=== PATIENT | male | born 1945 | race Caucasian/White ===

== ENCOUNTER 2018-10-12 10:24 | Inpatient (IN) ==
[2018-10-12] MEDS ORDERED: ASPIRIN 81 MG TAB.CHEW CHEWED ONE (10:38)
--- NOTE | 2018-10-12 10:45 | Emergency Department Note ---
SOB HPI - General Chief Complaint: Shortness of Breath/Dyspnea Stated Complaint: Shortness of breath Time Seen by Provider: 10/12/18 10:41 Source: patient Mode of arrival: ambulatory Limitations: no limitations - History of Present Illness 73-year-old male presents to the emergency department today via ambulance from [facility]. He reports that he has had difficulty breathing and shortness of breath for about 2 weeks. He denies fevers but reports occasionally feeling chilled. He does have a history of CHF, and states that his lower extremities have worsening edema. He states that normally his blood pressure is around 150-160 systolic and he is concerned that it is much lower than that and is running around 120 systolic. He doesn't require O2 at home, but he did arrive to the emergency department wearing 2 L O2. He denies any chest pains or cough. Denies any wheezing. - Related Data Home Medications Medication Instructions Recorded Confirmed Acetaminophen [Tylenol 8 Hour] 650 mg PO Q4HP PRN 10/12/18 10/12/18 Allopurinol [Zyloprim] 100 mg PO .COMPLEX 10/12/18 10/12/18 Bisacodyl [Dulcolax] 10 mg HI DAILYP PRN 10/12/18 10/12/18 Carvedilol [Coreg] 3.125 mg PO HS 10/12/18 10/12/18 Carvedilol [Coreg] 6.25 mg PO DAILY 10/12/18 10/12/18 Colchicine [Colcrys] 0.6 mg PO PRN PRN 10/12/18 10/12/18 Furosemide [Lasix] 80 mg PO DAILY 10/12/18 10/12/18 Magnesium Hydroxide [Milk of 400 mg PO PRN PRN 10/12/18 10/12/18 Magnesia] Metolazone [Zaroxolyn] 2.5 mg PO .COMPLEX 10/12/18 10/12/18 Multivitamin [One Daily Essential] 1 each PO DAILY 10/12/18 10/12/18 Na Phos,M-B/Na Phos,Di-Ba [Fleets 1 dose HI DAILYP PRN 10/12/18 10/12/18 Adult] Nystatin 15 gm TP BID 10/12/18 10/12/18 [place]-3 Fatty Acids [Super [place]-3] 1,000 mg PO Q48H 10/12/18 10/12/18 Rivaroxaban [Xarelto] 20 mg PO DAILY 10/12/18 10/12/18 traMADol [Ultram] 50 mg PO BID PRN 10/12/18 10/12/18 Allergies Allergy/AdvReac Type Severity Reaction Status Date / Time Penicillins AdvReac Mild Rash Verified 10/12/18 11:13 Review of Systems All systems ED: reviewed and negative except as stated. Past Medical History - Past Medical History Medical history: Reports: CHF, hypertension - Social History smoking status: Former smoker Physical Exam Limitations: no limitations General appearance: alert, in no apparent distress Head: atraumatic, normocephalic ENT: mucous membranes moist Neck: Present: trachea midline. Absent: lymphadenopathy, thyromegaly Chest: Present: normal inspection, symmetric chest wall rise. Absent: tenderness Respiratory: Present: other (Lung sounds clear to auscultate right upper lobe and left upper lobe diminished lung sounds right middle lobe and right lower lobe, and left lower lobe. No crackles.). Absent: accessory muscle use Cardiovascular: Present: regular rate, normal rhythm, +S1, +S2. Absent: systolic murmur, diastolic murmur Abdominal: Present: soft. Absent: distention, tenderness, guarding, rebound, rigidity, organomegaly, mass Extremities: Present: full ROM, normal capillary refill, pedal edema (4+ edema). Absent: calf tenderness Neurological: Present: alert, oriented X3 Skin: Present: warm, dry, normal color Course - Reevaluation(s) Time: 12:29 (Sp[address] Dr[address] Mar who will accept the patient for admission to [facility].) Vital Signs Temperature 99.5 F H 10/12/18 10:26 Pulse Rate 87 10/12/18 10:26 Respiratory Rate 18 10/12/18 10:26 Pulse Oximetry (%) 97 10/12/18 10:26 Temperature 99.5 F H 10/12/18 10:26 Pulse Rate 83 10/12/18 13:01 Respiratory Rate 32 H 10/12/18 13:01 Blood Pressure 108/89 10/12/18 13:01 Pulse Oximetry (%) 98 10/12/18 13:01 Shortness of Breath/Dyspnea - [facility] Narrative Medical decision making narrative: Labs today show proBNP at 6715, negative troponin, potassium of 3.2, and was given 20 mEq of oral potassium. He was given a total of 80 mg of IV Lasix today, and a Roque was placed. He will be admitted to [facility] for CHF exacerbation. He is requiring O2, and oxygen saturations did drop down to 85% on room air. No leukocytosis. - Lab Data Result diagrams: 10/12/18 10:47 10/12/18 10:47 Lab Results 10/12/18 10/12/18 10/12/18 Range/Units 10:47 10:47 10:47 WBC 5.7 (4.5-11.0) K/mcL RBC 4.54 (4.50-5.90) M/mcL Hgb 14.3 (13.5-16.5) g/dL Hct 44.2 (41.0-55.0) % MCV 97.3 (80.0-100.0) fL MCH 31.5 (26.0-34.0) pg MCHC 32.4 (31.0-36.0) g/dL RDW 14.8 H (11.5-14.5) % Plt Count 172 (140-440) K/mcL MPV 7.9 (7.4-10.4) fL Gran % 56.9 (38.0-78.0) % Lymph % (Auto) 18.5 (15.5-49.0) % [place] % (Auto) 15.6 H (1.0-12.0) % Eos % (Auto) 7.9 H (0.0-7.0) % Baso % (Auto) 1.1 (0.0-2.0) % Gran # 3.2 (1.8-8.0) K/mcL Lymph # (Auto) 1.0 L (1.5-4.8) K/mcL [place] # (Auto) 0.9 (0.1-0.9) K/mcL Eos # (Auto) 0.4 (0.0-0.7) K/mcL Baso # (Auto) 0.1 (0.0-0.3) K/mcL Sodium 135 (133-145) mmol/L Potassium 3.2 L (3.3-5.1) mmol/L Chloride 89 L (96-108) mmol/L Carbon Dioxide 35 H (22-30) mmol/L Anion Gap 11.0 (8-16) BUN 33 H (8-23) mg/dl Creatinine 1.2 (0.7-1.2) mg/dl GFR Calculation 59 Glucose 110 H (70-105) mg/dL Calcium 9.0 (8.6-10.4) mg/dl Total Bilirubin 1.7 H (0.0-1.0) mg/dL AST 29 (0-37) U/l ALT 19 (0-40) U/l Alkaline Phosphatase 262 H (39-117) U/L Total Creatine Kinase 51 (24-195) IU/L CK-MB (CK-2) 2.0 (0-4.9) ng/ml Myoglobin 79 H (28-72) ng/ml Troponin T < 0.01 (0-0.03) ng/ml NT-Pro-B Natriuret Pep 6715.0 H (0-450) pg/ml Total Protein 7.6 (5.9-8.4) gm/dL Albumin 3.4 (3.2-5.2) gm/dL Globulin 4.2 H (2.2-3.7) gm/dL Albumin/Globulin Ratio 0.8 L (1.0-2.3) Disposition Pt seen by [facility] only: Yes Clinical Impression: CHF exacerbation Disposition: Xfer As Inpt ([facility]) Condition: Fair Referrals: Jordan Martin MD [Primary Care Provider] -
[2018-10-12 11:30] LABS: Basophils # (Auto) 0.1 K/mcL (0.0-0.3); Basophils % (Auto) 1.1 % (0.0-2.0); Eosinophils # (Auto) 0.4 K/mcL (0.0-0.7); Eosinophils % (Auto) 7.9 % (0.0-7.0); Granulocytes % (Auto) 56.9 % (38.0-78.0); Lymphocytes % (Auto) 18.5 % (15.5-49.0); Mean Cell Volume 97.3 fL (80.0-100.0); Mean Corpuscular HGB Conc 32.4 g/dL (31.0-36.0); Monocytes # (Auto) 0.9 K/mcL (0.1-0.9); Monocytes % (Auto) 15.6 % (1.0-12.0); Platelet Count 172 K/mcL (140-440); RBC 4.54 M/mcL (4.50-5.90); Red Cell Distribution Width 14.8 % (11.5-14.5)
[2018-10-12] MEDS ORDERED: FUROSEMIDE 40 MG/4 ML VIAL IV ONE ×3 (11:41→12:20)
[2018-10-12 12:00] LABS: ALT/SGPT 19 U/l (0-40); Albumin 3.4 gm/dL (3.2-5.2); Albumin/Globulin Ratio 0.8 (1.0-2.3); Alkaline Phosphatase 262 U/L (39-117); Blood Urea Nitrogen 33 mg/dl (8-23); Creatine Kinase 51 IU/L (24-195); Myoglobin 79 ng/ml (28-72)
[2018-10-12] MEDS ORDERED: POTASSIUM CHLORIDE 20 MEQ TABLET PO ONE (12:22)
--- NOTE | 2018-10-12 12:36 | XRay Report ---
CLINICAL INFORMATION: Chest Pain COMPARISON: 01/21/2015 FINDINGS: The heart is moderately enlarged. Mediastinum is unremarkable. Pulmonary vessels are markedly congested with moderate peribronchovascular edema. Mild bibasilar atelectasis noted. Small right pleural effusion appreciated. IMPRESSION: Moderate/severe acute CHF Interpreted and Authenticated by: Bret Gamboa 10/12/18
--- NOTE | 2018-10-12 13:14 | Internal Med History&Physical ---
Medical - H&P: HPI Patient information: Note initiated : 10/12/18 at 1:12 pm Service Date, if different from initiated Date: [] Patient: Liz Bland a 73 y/o M admitted on for Shortness of breath. Chief Complaint: [] History of present illness: Mr. Bland is a 73 year old M with multiple medical issues, CHF, presents to the ER today for evaluation of shortness of breath. The patient is a resident of [facility], notes that he has been feeling short of breath for the last 2-3 weeks. He was discharged from [facility] 6 weeks ago when he was admitted with diagnosis of possible pneumonia and congestive heart failure. The patient notes for the last 3 weeks has been getting progressively short of breath, difficult to do minimal ambulation, and increased swelling in his lower extremity. He has been having cough which is dry. He denies any other complaints. He denies any palpitations denies any chest pain dizziness, denies any headache changes in vision has chronic loss of vision, denies any changing in hearing difficulty in swallowing, denies any nausea abdominal pain diarrhea c onstipation. Denies any new joint pains or skin rashes. Denies any psychiatric complaints. The patient on presentation to the ER had a low-grade temperature of 99.5, blood pressure 117/80, respirations 18 saturating 92% on 2-3 L of oxygen. EKG showed atrial fibrillation wide QRS complex left axis deviation. No old EKG to compare. Chest x-ray shows severe congestive heart failure Labs show WBC count of 5.7 hemoglobin 14 platelets 172, sodium 135 potassium 3.2 bicarbonate 35 creatinine 1.2 bilirubin 1.7, BNP elevated at 6715 troponin is negative Patient is being admitted to the hospital for further management All systems: reviewed and no additional remarkable complaints except as stated (As per HPI rest negative) Medical - H&P: PMH Medical history: Coronary artery disease Hypertension Atrial fibrillation Congestive heart failure Gout Polyneuropathy Pulmonary hypertension Morbid obesity Aortic valve replacement Surgical history: Aortic valve replacement Coronary artery bypass graft Family history: reviewed and not pertinent Social history: Presently living in a penitentiary, denies any smoking alcohol or recreational drug use Medical - H&P: Meds Home Medications Medication Instructions Recorded Confirmed Type Acetaminophen [Tylenol 8 Hour] 650 mg PO Q4HP PRN 10/12/18 10/12/18 History Allopurinol [Zyloprim] 100 mg PO .COMPLEX 10/12/18 10/12/18 History Bisacodyl [Dulcolax] 10 mg MD DAILYP PRN 10/12/18 10/12/18 History Carvedilol [Coreg] 3.125 mg PO HS 10/12/18 10/12/18 History Carvedilol [Coreg] 6.25 mg PO DAILY 10/12/18 10/12/18 History Colchicine [Colcrys] 0.6 mg PO PRN PRN 10/12/18 10/12/18 History Furosemide [Lasix] 80 mg PO DAILY 10/12/18 10/12/18 History Magnesium Hydroxide [Milk of 400 mg PO PRN PRN 10/12/18 10/12/18 History Magnesia] Metolazone [Zaroxolyn] 2.5 mg PO .COMPLEX 10/12/18 10/12/18 History Multivitamin [One Daily Essential] 1 each PO DAILY 10/12/18 10/12/18 History Na Phos,M-B/Na Phos,Di-Ba [Fleets 1 dose MD DAILYP PRN 10/12/18 10/12/18 History Adult] Nystatin 15 gm TP BID 10/12/18 10/12/18 History [place]-3 Fatty Acids [Super [place]-3] 1,000 mg PO Q48H 10/12/18 10/12/18 History Rivaroxaban [Xarelto] 20 mg PO DAILY 10/12/18 10/12/18 History traMADol [Ultram] 50 mg PO BID PRN 10/12/18 10/12/18 History Allergies Allergy/AdvReac Type Severity Reaction Status Date / Time Penicillins AdvReac Mild Rash Verified 10/12/18 11:13 Medical - H&P: Exam - Constitutional Vitals: Temp Pulse Resp BP Pulse Ox 99.5 F H 83 32 H 108/89 98 10/12/18 10:26 10/12/18 13:01 10/12/18 13:01 10/12/18 13:01 10/12/18 13:01 Exam: GENERAL: The patient is a well-developed, well-nourished in no apparent distress. Is alert and oriented x3. VITAL SIGNS: Reviewed and as noted elsewhere. HEENT: Head is normocephalic and atraumatic. Extraocular muscles are intact. Pupils are equal, round, and reactive to light. Nares appeared normal. Mouth appears any without lesions , poor dentition. Mucous membranes are moist. NECK: Normal to inspection, Supple, No lymphadenopathy or thyromegaly. LUNGS: Air entry equal on both sides, no wheezing, aid[place] basilar crackles, right > left. No accessory muscles of respiration HEART: Regular rate and rhythm normal, S1 and S2 heard, no Gallop, S3 or Rub Noted, No Gross murmur heard. ABDOMEN: Soft, nontender, and nondistended. Positive bowel sounds. No hepatosplenomegaly was noted. EXTREMITIES: No cyanosis, clubbing, rash, m, bilateral pedeal edema ++++ , aiden venous stasis. NEUROLOGIC: Cranial nerves II through XII are grossly intact. Motor and Sensory System Grossly Intact PSYCHIATRIC: Normal affect, Normal Mood. Appropriate Behavior. SKIN: No ulceration or wounds noted, No jaundice, No rash noted. Medical - H&P: Reslt - Labs CBC & Chem 7: 10/12/18 10:47 10/12/18 10:47 Labs: Short CBC 10/12/18 Range/Units 10:47 WBC 5.7 (4.5-11.0) K/mcL Hgb 14.3 (13.5-16.5) g/dL Hct 44.2 (41.0-55.0) % Plt Count 172 (140-440) K/mcL BMP 10/12/18 10:47 Sodium 135 Potassium 3.2 L Chloride 89 L Carbon Dioxide 35 H BUN 33 H Creatinine 1.2 Glucose 110 H Calcium 9.0 Cardiac Enzymes 10/12/18 10/12/18 Range/Units 10:47 10:47 Total Creatine Kinase 51 (24-195) IU/L CK-MB (CK-2) 2.0 (0-4.9) ng/ml Troponin T < 0.01 (0-0.03) ng/ml Liver Function 10/12/18 Range/Units 10:47 Total Bilirubin 1.7 H (0.0-1.0) mg/dL AST 29 (0-37) U/l ALT 19 (0-40) U/l Alkaline Phosphatase 262 H (39-117) U/L Albumin 3.4 (3.2-5.2) gm/dL Medical - H&P: A/P - Narrative A/P Narrative: A/P Acute congestive heart failuire, Systolic and Diastolic -Pt last echo done 07/27, at [facility] shows mildly dilated left ventricle, 30-35% ejection fraction, regional wall motion abnormalities, and grade 3 diastolic dysfunction -IV diuretics for now, add metolazone 2.5 mg twice daily before Lasix Pneumonia -Patient has a fever, although there is no white count he is a penit[facility]iary [facility], central calcitonin get blood cultures and start on broad-spectrum antibiotic coverage for now. Hypokalemia -Replace aggressively Atrial fibrillation -Rate reasonably controlled at this time, on anticoagulation with Xarelto, beta- blockers Coreg resumed Gout -Resume allopurinol Hypertension -Blood pressure stable continue home medications OT/PT/ST rehab DVT on xarelto Full code, no family, has friend mac, who lives with him, should he be on the machine for long peroid, then his friend to decide when to pull the plug.
[2018-10-12] MEDS ORDERED: VANCOMYCIN PER PHARMACY IV SCH (14:12)
[2018-10-12] MEDS ORDERED: ACETAMINOPHEN 325 MG TABLET PO PRN (14:12)
[2018-10-12] MEDS ORDERED: ONDANSETRON 4 MG/2 ML VIAL IV PRN (14:12)
[2018-10-12] MEDS ORDERED: NALOXONE HCL 0.4 MG/ML VIAL IV PRN (14:12)
[2018-10-12] MEDS ORDERED: POTASSIUM CHLORIDE 20 MEQ PACKET PO ONE (14:12)
[2018-10-12] MEDS ORDERED: traMADol 50 MG TABLET PO PRN (14:12)
[2018-10-12] MEDS ORDERED: IPRATROPIUM/ALBUTEROL 3 ML AMPUL.NEB NEB PRN (14:12)
[2018-10-12] MEDS: LEVOFLOXACIN 750 MG/150 ML BAG IV SCH (14:51)
[2018-10-12] MEDS: 0.9 % SODIUM CHLORIDE 10 ML SYRINGE IV SCH ×2 (14:53→21:44)
[2018-10-12] MEDS: METOLAZONE 2.5 MG TABLET PO SCH (16:10)
[2018-10-12] MEDS: CEFEPIME 1 GM VIAL IV SCH (16:46)
[2018-10-12] MEDS: FUROSEMIDE 100 MG/10 ML VIAL IV SCH (16:46)
[2018-10-12] MEDS: VANCOMYCIN 1,500 MG in 0.9 % SODIUM CHLORIDE 500 ML IV SCH (16:46)
[2018-10-12] MEDS: CARVEDILOL 3.125 MG TABLET PO SCH (20:47)
[2018-10-12] MEDS ORDERED: NYSTATIN CRM 1 DOSE TUBE TOPICAL PRN (21:00)
[2018-10-12] MEDS: oxyCODONE/APAP 5/325MG TABLET PO PRN (23:12)
[2018-10-13] MEDS: CEFEPIME 1 GM VIAL IV SCH ×3 (00:46→21:24)
[2018-10-13] MEDS: oxyCODONE/APAP 5/325MG TABLET PO PRN ×2 (03:33→13:25)
[2018-10-13] MEDS: 0.9 % SODIUM CHLORIDE 10 ML SYRINGE IV SCH ×3 (05:26→21:25)
[2018-10-13] MEDS: METOLAZONE 2.5 MG TABLET PO SCH ×2 (07:35→16:19)
--- NOTE | 2018-10-13 07:59 | Emergency Department Note ---
ED Note Addendum Note Addendum: I discussed this patient with the mid-level provider and agree with the assessment and plan.
[2018-10-13] MEDS ORDERED: POLYETHYLENE GLYCOL 3350 17 GM PACKET PO ONE (08:22)
[2018-10-13] MEDS: FUROSEMIDE 100 MG/10 ML VIAL IV SCH ×2 (08:58→16:59)
[2018-10-13] MEDS: RIVAROXABAN 20 MG TABLET PO SCH (08:59)
[2018-10-13] MEDS: ALLOPURINOL 100 MG TABLET PO SCH (08:59)
[2018-10-13] MEDS: CARVEDILOL 6.25 MG TABLET PO SCH (08:59)
[2018-10-13] MEDS: MULTIVIT,THER IRON,CA,FA & MIN 1 TABLET PO SCH (08:59)
[2018-10-13 09:21] LABS: Basophils # (Auto) 0 K/mcL (0.0-0.3); Basophils % (Auto) 0.6 % (0.0-2.0); Eosinophils # (Auto) 0.6 K/mcL (0.0-0.7); Eosinophils % (Auto) 9.3 % (0.0-7.0); Granulocytes % (Auto) 61.8 % (38.0-78.0); Lymphocytes # (Auto) 0.9 K/mcL (1.5-4.8); Lymphocytes % (Auto) 15.5 % (15.5-49.0); Mean Cell Volume 98.8 fL (80.0-100.0); Mean Corpuscular HGB Conc 31.9 g/dL (31.0-36.0); Monocytes # (Auto) 0.8 K/mcL (0.1-0.9); Monocytes % (Auto) 12.8 % (1.0-12.0); Platelet Count 163 K/mcL (140-440); RBC 4.25 M/mcL (4.50-5.90)
[2018-10-13 09:34] LABS: ALT/SGPT 17 U/l (0-40); Albumin 3.1 gm/dL (3.2-5.2); Albumin/Globulin Ratio 0.7 (1.0-2.3); Alkaline Phosphatase 245 U/L (39-117); Bilirubin,Direct 0.6 mg/dL (0.0-0.3); Blood Urea Nitrogen 34 mg/dl (8-23); Gamma Glutamyl Transpeptidase 114 U/L (8-61); Uric Acid 10.6 mg/dL (2.5-8.0)
[2018-10-13] MEDS: VANCOMYCIN 1,500 MG in 0.9 % SODIUM CHLORIDE 500 ML IV SCH (10:03)
[2018-10-13] MEDS: LEVOFLOXACIN 750 MG/150 ML BAG IV SCH (10:03)
[2018-10-13] MEDS ORDERED: POTASSIUM CHLORIDE 20 MEQ PACKET PO ONE (10:08)
--- NOTE | 2018-10-13 13:39 | Internal Med Progress Note ---
Medical - PN: Subj Patient information: Note initiated : 10/13/18 at 1:37 pm Service Date, if different from initiated Date: [] Patient: Liz Bland a 73 y/o M admitted on 10/12/18 for Shortness of breath. Chief Complaint: [] Interval history: Mr. Bland is a 73 year old M with multiple medical issues, CHF, presents to the ER today for evaluation of shortness of breath. The patient is a resident of [facility], notes that he has been feeling short of breath for the last 2-3 weeks. He was discharged from [facility] 6 weeks ago when he was admitted with diagnosis of possible pneumonia and congestive heart failure. The patient notes for the last 3 weeks has been getting progressively short of breath, difficult to do minimal ambulation, and increased swelling in his lower extremity. He has been having cough which is dry. He denies any other complaints. He denies any palpitations denies any chest pain dizziness, denies any headache changes in vision has chronic loss of vision, denies any changing in hearing difficulty in swallowing, denies any nausea abdominal pain diarrhea constipation. Denies any new joint pains or skin rashes. Denies any psychiatric complaints. The patient on presentation to the ER had a low-grade temperature of 99.5, blood pressure 117/80, respirations 18 saturating 92% on 2-3 L of oxygen. EKG showed atrial fibrillation wide QRS complex left axis deviation. No old EKG to compare. Chest x-ray shows severe congestive heart failure Labs show WBC count of 5.7 hemoglobin 14 platelets 172, sodium 135 potassium 3.2 bicarbonate 35 creatinine 1.2 bilirubin 1.7, BNP elevated at 6715 troponin is negative Patient is being admitted to the hospital for further management 10/13 Pt seen examined, no acute overnight issues, tolerating po diet well, sitting in chair, reports breathing better, but not back to baseline, still weak and tired. Pertinent ROS: Denies headache, dizziness Denies chest pain, palpitations shortness of breath improving Denies abdominal pain, nausea or vomiting. - Constitutional Vitals: Vital Signs Temp Pulse Resp BP Pulse Ox 99.3 F H 80 18 113/64 96 10/13/18 11:48 10/13/18 11:48 10/13/18 11:48 10/13/18 11:48 10/13/18 11:48 Period Temp Pulse Resp BP Sys/Levin Pulse Ox Last 24 Hr 98.2 F-99.5 F 72-85 16-32 92-113/57-89 93-97 Intake and Output 10/12/18 10/13/18 10/13/18 21:59 05:59 13:59 Intake Total 1150 Output Total 1350 2200 650 Balance -1350 -2200 500 Weight 246 lb 246 lb Patient Weight 10/14/18 05:59 Weight 246 lb Intake & Output: Intake & Output 10/12/18 10/13/18 10/13/18 21:59 05:59 13:59 Intake Total 1150 Output Total 1350 2200 650 Balance -1350 -2200 500 Weight 246 lb 246 lb Intake: IV 650 Vancomycin 1,500 mg In Sodium 500 Chloride 0.9% 500 ml @ 333.3 mls/hr IV Q24H [facility] Rx#: [id number] Oral 500 Output: Urine Catheter Amount 1350 2200 650 Other: Meal Lunch Percent of Meal Consumed 90 Urine Appearance Clear Clear Uretheral (Roque) Clear Clear Urine Color Bright Yellow Dark Yara Uretheral (Roque) Straw Dark Yellow Straw Urine Odor Strong Exam: Constitutional; Afebrile, cooperative, alert, not in distress. Respiratory system: Air Entry equal on both sides, No crackles or wheezing, no rhonchi. CVS- Rate rhythm regular, S1,S2 heard, no gallop, no rub. Abdomen- Soft nontender abdomen, no organomegaly, no tenderness, no guarding or rigidity, MANAGER ORDER- AOOx3, moving all extremities, no gross focal deficit noted. Medical - PN: Obj Da - Labs CBC & Chem 7: 10/13/18 08:27 10/13/18 08:27 Labs: Abnormal Lab Results 10/13/18 10/13/18 10/12/18 08:27 08:27 10:47 RBC 4.25 L Hgb 13.4 L RDW 15.0 H [place] % (Auto) 12.8 H Eos % (Auto) 9.3 H Lymph # (Auto) 0.9 L Potassium 3.2 L Chloride 89 L 89 L Carbon Dioxide 40 H 35 H Anion Gap 6.0 L BUN 34 H 33 H Creatinine 1.5 H Glucose 113 H 110 H Uric Acid 10.6 H Total Bilirubin 1.4 H 1.7 H Direct Bilirubin 0.6 H GGT 114 H Alkaline Phosphatase 245 H 262 H Lactate Dehydrogenase 277 H Myoglobin 79 H NT-Pro-B Natriuret Pep 6715.0 H Albumin 3.1 L Globulin 4.3 H 4.2 H Albumin/Globulin Ratio 0.7 L 0.8 L 10/12/18 10:47 RBC Hgb RDW 14.8 H [place] % (Auto) 15.6 H Eos % (Auto) 7.9 H Lymph # (Auto) 1.0 L Potassium Chloride Carbon Dioxide Anion Gap BUN Creatinine Glucose Uric Acid Total Bilirubin Direct Bilirubin GGT Alkaline Phosphatase Lactate Dehydrogenase Myoglobin NT-Pro-B Natriuret Pep Albumin Globulin Albumin/Globulin Ratio Meds: Medications Acetaminophen (Tylenol) 650 mg PO Q6HP PRN PRN Reason: PAIN/FEVER > 101 Albuterol/Ipratropium (Duoneb) 3 ml NEB Q4HRT PRN PRN Reason: Shortness Of Breath Or Wheezing Allopurinol (Zyloprim) 100 mg PO MoWeFr@0900 [facility] Last Admin: 10/13/18 08:59 Dose: 100 mg Documented by: Carvedilol (Coreg) 3.125 mg PO HS [facility] Last Admin: 10/12/18 20:47 Dose: 3.125 mg Documented by: Carvedilol (Coreg) 6.25 mg PO DAILY [facility] Last Admin: 10/13/18 08:59 Dose: 6.25 mg Documented by: Cefepime HCl (Maxipime) 1 gm IV Q12H [facility] Last Admin: 10/13/18 08:59 Dose: 1 gm Documented by: Furosemide (Lasix) 80 mg IV BIDD [facility] Last Admin: 10/13/18 08:58 Dose: 80 mg Documented by: Levofloxacin (Levaquin) 750 mg in 150 mls @ 100 mls/hr IV Q24H [facility] Last Admin: 10/13/18 10:03 Dose: 100 mls/hr Documented by: Vancomycin HCl 1,500 mg/ (Sodium Chloride) 500 mls @ 333.3 mls/hr IV Q24H [facility] Last Admin: 10/13/18 10:03 Dose: 333 mls/hr Documented by: Iron Carb/Multivit/[place]/Folic Acid (Multivitamin W/Minerals) 1 tab PO DAILY [facility] Last Admin: 10/13/18 08:59 Dose: 1 tab Documented by: Metolazone (Zaroxolyn) 2.5 mg PO BID@0730,1530 [facility] Last Admin: 10/13/18 07:35 Dose: 2.5 mg Documented by: Naloxone HCl (Narcan) 0.1 mg IV Q2MIN PRN PRN Reason: Opiate Reversal Nystatin (Nystatin Crm) 0 dose TOPICAL BIDP PRN PRN Reason: Rash Ondansetron HCl (Zofran) 4 mg IV Q4HP PRN PRN Reason: Nausea And Vomiting Oxycodone/Acetaminophen (Percocet 5-325 Mg) 1 tab PO Q4HP PRN PRN Reason: Pain Level >5 Last Admin: 10/13/18 13:25 Dose: 1 tab Documented by: Rivaroxaban (Xarelto) 20 mg PO DAILY [facility] Last Admin: 10/13/18 08:59 Dose: 20 mg Documented by: Sodium Chloride (Saline Flush) 10 ml IV Q8 [facility] Last Admin: 10/13/18 13:26 Dose: 10 ml Documented by: Tramadol HCl (Ultram) 50 mg PO BIDP PRN PRN Reason: Pain Vancomycin HCl (Vancomycin Per Pharmacy) 1 order IV UD [facility] Medical - PN: A/P - Time Spent With Patient Total time spent is greater than 50% in coordination of care (as documented) at patient's floor/unit and/or counseling patient: - Narrative A/P Narrative: A/P Acute congestive heart failuire, Systolic and Diastolic -Pt last echo done 07/27, at [facility] shows mildly dilated left ventricle, 30-35% ejection fraction, regional wall motion abnormalities, and grade 3 diastolic dysfunction -IV diuretics for now, add metolazone 2.5 mg twice daily before Lasix -pt is negative 3550 ml since yesterday, continue same Acute kidney injury from diuretic use monitor renal fucntion creat is 1.5 today, up from 1.2 Pneumonia -Patient has a fever, although there is no white count he is a half-way resident, central calcitonin get blood cultures and start on broad-spectrum antibiotic coverage for now. low grade fever presistent, neg cultures so far. Hypokalemia -Replace aggressively Atrial fibrillation -Rate reasonably controlled at this time, on anticoagulation with Xarelto, beta- blockers Coreg resumed Gout -Resume allopurinol Hypertension -Blood pressure stable continue home medications OT/PT/ST rehab DVT on xarelto Full code, no family, has friend mac, who lives with him, should he be on the machine for long peroid, then his friend to decide when to pull the plug. Medical - PN: Qual - Stroke Symptom Onset Unknown: No - VTE Deep Vein Thrombosis/Pulmonary Embolism Present on Admission: No
[2018-10-13] MEDS: CARVEDILOL 3.125 MG TABLET PO SCH (21:24)
[2018-10-14] MEDS: oxyCODONE/APAP 5/325MG TABLET PO PRN ×3 (02:20→20:17)
[2018-10-14] MEDS: 0.9 % SODIUM CHLORIDE 10 ML SYRINGE IV SCH ×3 (05:42→21:09)
[2018-10-14 06:33] LABS: Basophils # (Auto) 0 K/mcL (0.0-0.3); Basophils % (Auto) 0.6 % (0.0-2.0); Eosinophils # (Auto) 0.5 K/mcL (0.0-0.7); Eosinophils % (Auto) 8.3 % (0.0-7.0); Granulocytes % (Auto) 64.1 % (38.0-78.0); Lymphocytes # (Auto) 0.8 K/mcL (1.5-4.8); Lymphocytes % (Auto) 14.1 % (15.5-49.0); Mean Cell Volume 98.3 fL (80.0-100.0); Mean Corpuscular HGB Conc 32.6 g/dL (31.0-36.0); Monocytes # (Auto) 0.8 K/mcL (0.1-0.9); Monocytes % (Auto) 12.9 % (1.0-12.0); Platelet Count 162 K/mcL (140-440); RBC 3.84 M/mcL (4.50-5.90); Red Cell Distribution Width 15.1 % (11.5-14.5)
[2018-10-14] MEDS: METOLAZONE 2.5 MG TABLET PO SCH ×2 (07:11→16:14)
[2018-10-14 07:13] LABS: ALT/SGPT 16 U/l (0-40); Albumin/Globulin Ratio 0.8 (1.0-2.3); Alkaline Phosphatase 222 U/L (39-117); Bilirubin,Direct 0.7 mg/dL (0.0-0.3); Blood Urea Nitrogen 37 mg/dl (8-23); Gamma Glutamyl Transpeptidase 110 U/L (8-61); Uric Acid 10.6 mg/dL (2.5-8.0)
[2018-10-14] MEDS ORDERED: POTASSIUM CHLORIDE 40 MEQ in DEXTROSE 5% IN WATER 500 ML IV ONE (07:59)
--- NOTE | 2018-10-14 08:29 | XRay Report ---
HISTORY: Follow-up congestive heart failure FINDINGS: The heart is moderately enlarged. There is congestive heart failure with pulmonary edema. No pleural effusion is seen. There are sternal wires present. The congestive heart failure has mildly improved on the right side but there is been relatively little change in the left side. IMPRESSION: Cardiomegaly with congestive heart failure which is beginning to improve Interpreted and Authenticated by: Geovanni Goldberg 10/14/18
[2018-10-14] MEDS ORDERED: MAGNESIUM CITRATE 300 ML ORAL.SOL PO ONE (09:18)
[2018-10-14] MEDS: FUROSEMIDE 100 MG/10 ML VIAL IV SCH ×2 (09:19→17:06)
[2018-10-14] MEDS: CARVEDILOL 6.25 MG TABLET PO SCH (09:20)
[2018-10-14] MEDS: MULTIVIT,THER IRON,CA,FA & MIN 1 TABLET PO SCH (09:20)
[2018-10-14] MEDS: CEFEPIME 1 GM VIAL IV SCH ×2 (09:20→21:08)
[2018-10-14] MEDS: RIVAROXABAN 20 MG TABLET PO SCH (09:20)
[2018-10-14] MEDS: LEVOFLOXACIN 750 MG/150 ML BAG IV SCH (09:21)
[2018-10-14] MEDS: VANCOMYCIN 1,500 MG in 0.9 % SODIUM CHLORIDE 500 ML IV SCH (10:59)
[2018-10-14] MEDS ORDERED: POTASSIUM CHLORIDE 20 MEQ PACKET PO ONE (15:10)
--- NOTE | 2018-10-14 15:13 | Internal Med Progress Note ---
Medical - PN: Subj Patient information: Note initiated : 10/14/18 at 3:10 pm Service Date, if different from initiated Date: [] Patient: Liz Bland a 73 y/o M admitted on 10/12/18 for Shortness of breath. Chief Complaint: [] Interval history: Mr. Bland is a 73 year old M with multiple medical issues, CHF, presents to the ER today for evaluation of shortness of breath. The patient is a resident of [facility], notes that he has been feeling short of breath for the last 2-3 weeks. He was discharged from [facility] 6 weeks ago when he was admitted with diagnosis of possible pneumonia and congestive heart failure. The patient notes for the last 3 weeks has been getting progressively short of breath, difficult to do minimal ambulation, and increased swelling in his lower extremity. He has been having cough which is dry. He denies any other complaints. He denies any palpitations denies any chest pain dizziness, denies any headache changes in vision has chronic loss of vision, denies any changing in hearing difficulty in swallowing, denies any nausea abdominal pain diarrhea constipation. Denies any new joint pains or skin rashes. Denies any psychiatric complaints. The patient on presentation to the ER had a low-grade temperature of 99.5, blood pressure 117/80, respirations 18 saturating 92% on 2-3 L of oxygen. EKG showed atrial fibrillation wide QRS complex left axis deviation. No old EKG to compare. Chest x-ray shows severe congestive heart failure Labs show WBC count of 5.7 hemoglobin 14 platelets 172, sodium 135 potassium 3.2 bicarbonate 35 creatinine 1.2 bilirubin 1.7, BNP elevated at 6715 troponin is negative Patient is being admitted to the hospital for further management 10/13 Pt seen examined, no acute overnight issues, tolerating po diet well, sitting in chair, reports breathing better, but not back to baseline, still weak and tired. / Pt seen examined, feels fatigued, but no other complaints or concerns still has low grade temp otherwise no issues neg 7340 since admissin, still has significant lower extremity edema K low, replace Pertinent ROS: Denies headache, dizziness Denies chest pain, palpitations present shortness of breath and fatigue Denies abdominal pain, nausea or vomiting. - Constitutional Vitals: Vital Signs Temp Pulse Resp BP Pulse Ox 99.2 F H 72 18 95/56 92 10/14/18 12:00 10/14/18 12:00 10/14/18 12:00 10/14/18 12:00 10/14/18 12:00 Period Temp Pulse Resp BP Sys/Levin Pulse Ox Last 24 Hr 98.9 F-99.7 F 72-80 18-20 91-120/56-78 92-96 Intake and Output 10/14/18 10/14/18 10/14/18 05:59 13:59 21:59 Intake Total 570 Output Total 2300 1400 Balance -2300 -830 Intake & Output: Intake & Output 10/14/18 10/14/18 10/14/18 05:59 13:59 21:59 Intake Total 570 Output Total 2300 1400 Balance -2300 -830 Intake: IV 150 Oral 420 Output: Urine Catheter Amount 2300 1400 Other: Meal Lunch Percent of Meal Consumed 100% Feeding Ability Assist with Tray Set Up Urine Appearance Hematuria Urine Color Blood Tinged Uretheral (Roque) Dark Yellow Straw Urine Odor Strong Exam: Constitutional; Afebrile, cooperative, alert, not in distress. Respiratory system: Air Entry equal on both sides, No crackles or wheezing, no rhonchi. CVS- Rate rhythm regular, S1,S2 heard, no gallop, no rub. 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 Medical - PN: Obj Da - Labs CBC & Chem 7: 10/14/18 04:15 10/14/18 04:15 Labs: Abnormal Lab Results 10/14/18 10/14/18 10/13/18 04:15 04:15 08:27 RBC 3.84 L Hgb 12.3 L Hct 37.7 L RDW 15.1 H Lymph % (Auto) 14.1 L Marion % (Auto) 12.9 H Eos % (Auto) 8.3 H Lymph # (Auto) 0.8 L Potassium 2.9 L* Chloride 88 L 89 L Carbon Dioxide 36 H 40 H Anion Gap 6.0 L BUN 37 H 34 H Creatinine 1.4 H 1.5 H Glucose 112 H 113 H Uric Acid 10.6 H 10.6 H Total Bilirubin 1.4 H 1.4 H Direct Bilirubin 0.7 H 0.6 H GGT 110 H 114 H Alkaline Phosphatase 222 H 245 H Lactate Dehydrogenase 265 H 277 H Myoglobin NT-Pro-B Natriuret Pep Albumin 3.0 L 3.1 L Globulin 3.9 H 4.3 H Albumin/Globulin Ratio 0.8 L 0.7 L 10/13/18 10/12/18 10/12/18 08:27 10:47 10:47 RBC 4.25 L Hgb 13.4 L Hct RDW 15.0 H 14.8 H Lymph % (Auto) Marion % (Auto) 12.8 H 15.6 H Eos % (Auto) 9.3 H 7.9 H Lymph # (Auto) 0.9 L 1.0 L Potassium 3.2 L Chloride 89 L Carbon Dioxide 35 H Anion Gap BUN 33 H Creatinine Glucose 110 H Uric Acid Total Bilirubin 1.7 H Direct Bilirubin GGT Alkaline Phosphatase 262 H Lactate Dehydrogenase Myoglobin 79 H NT-Pro-B Natriuret Pep 6715.0 H Albumin Globulin 4.2 H Albumin/Globulin Ratio 0.8 L Meds: Medications Acetaminophen (Tylenol) 650 mg PO Q6HP PRN PRN Reason: PAIN/FEVER > 101 Albuterol/Ipratropium (Duoneb) 3 ml NEB Q4HRT PRN PRN Reason: Shortness Of Breath Or Wheezing Allopurinol (Zyloprim) 100 mg PO MoWeFr@0900 [facility] Last Admin: 10/13/18 08:59 Dose: 100 mg Documented by: Carvedilol (Coreg) 3.125 mg PO HS [facility] Last Admin: 10/13/18 21:24 Dose: 3.125 mg Documented by: Carvedilol (Coreg) 6.25 mg PO DAILY [facility] Last Admin: 10/14/18 09:20 Dose: 6.25 mg Documented by: Cefepime HCl (Maxipime) 1 gm IV Q12H [facility] Last Admin: 10/14/18 09:20 Dose: 1 gm Documented by: Furosemide (Lasix) 80 mg IV BIDD [facility] Last Admin: 10/14/18 09:19 Dose: 80 mg Documented by: Levofloxacin (Levaquin) 750 mg in 150 mls @ 100 mls/hr IV Q24H [facility] Last Infusion: 10/14/18 11:04 Dose: Infused Documented by: Vancomycin HCl 1,500 mg/ (Sodium Chloride) 500 mls @ 333.3 mls/hr IV Q24H [facility] Last Admin: 10/14/18 10:59 Dose: 333 mls/hr Documented by: Iron Carb/Multivit/Arcade Technician/Folic Acid (Multivitamin W/Minerals) 1 tab PO DAILY [facility] Last Admin: 10/14/18 09:20 Dose: 1 tab Documented by: Metolazone (Zaroxolyn) 2.5 mg PO BID@0730,1530 [facility] Last Admin: 10/14/18 07:11 Dose: 2.5 mg Documented by: Naloxone HCl (Narcan) 0.1 mg IV Q2MIN PRN PRN Reason: Opiate Reversal Nystatin (Nystatin Crm) 0 dose TOPICAL BIDP PRN PRN Reason: Rash Ondansetron HCl (Zofran) 4 mg IV Q4HP PRN PRN Reason: Nausea And Vomiting Oxycodone/Acetaminophen (Percocet 5-325 Mg) 1 tab PO Q4HP PRN PRN Reason: Pain Level >5 Last Admin: 10/14/18 09:20 Dose: 1 tab Documented by: Potassium Chloride (Klor-Con) 40 meq PO ONCE ONE Stop: 10/14/18 15:11 Rivaroxaban (Xarelto) 20 mg PO DAILY [facility] Last Admin: 10/14/18 09:20 Dose: 20 mg Documented by: Sodium Chloride (Saline Flush) 10 ml IV Q8 [facility] Last Admin: 10/14/18 15:02 Dose: 10 ml Documented by: Tramadol HCl (Ultram) 50 mg PO BIDP PRN PRN Reason: Pain Vancomycin HCl (Vancomycin Per Pharmacy) 1 order IV [facility] Medical - PN: A/P - Time Spent With Patient Total time spent is greater than 50% in coordination of care (as documented) at patient's floor/unit and/or counseling patient: - Narrative A/P Narrative: A/P Acute congestive heart failuire, Systolic and Diastolic -Pt last echo done 07/27, at [facility] shows mildly dilated left ventricle, 30-35% ejection fraction, regional wall motion abnormalities, and grade 3 diastolic dysfunction -IV diuretics for now, add metolazone 2.5 mg twice daily before Lasix -pt is responding well to diuresis Acute kidney injury from diuretic use monitor renal fucntion creat is 1.4 today, stable Pneumonia -Patient has a fever, although there is no white count he is a senior care resident, central calcitonin get blood cultures and start on broad-spectrum antibiotic coverage for now. low grade fever persistent, neg cultures so far. Hypokalemia -Replace aggressively Atrial fibrillation -Rate reasonably controlled at this time, on anticoagulation with Xarelto, beta- blockers Coreg resumed Gout -Resume allopurinol Hypertension -Blood pressure stable continue home medications, bp low today, will hold bp meds (coreg) to allow diuresis OT/PT/ST rehab DVT on xarelto Full code, no family, has friend mac, who lives with him, should he be on the machine for long peroid, then his friend to decide when to pull the plug. Medical - PN: Qual - Stroke Symptom Onset Unknown: No - VTE Deep Vein Thrombosis/Pulmonary Embolism Present on Admission: No
[2018-10-15] MEDS: 0.9 % SODIUM CHLORIDE 10 ML SYRINGE IV SCH ×3 (05:25→21:10)
[2018-10-15 06:21] LABS: Basophils # (Auto) 0 K/mcL (0.0-0.3); Basophils % (Auto) 0.6 % (0.0-2.0); Eosinophils # (Auto) 0.6 K/mcL (0.0-0.7); Eosinophils % (Auto) 9.3 % (0.0-7.0); Granulocytes % (Auto) 61.1 % (38.0-78.0); Lymphocytes % (Auto) 16.1 % (15.5-49.0); Mean Cell Volume 98.2 fL (80.0-100.0); Mean Corpuscular HGB Conc 32.9 g/dL (31.0-36.0); Monocytes # (Auto) 0.8 K/mcL (0.1-0.9); Monocytes % (Auto) 12.9 % (1.0-12.0); Platelet Count 157 K/mcL (140-440); RBC 3.84 M/mcL (4.50-5.90); Red Cell Distribution Width 15.1 % (11.5-14.5)
[2018-10-15 06:49] LABS: ALT/SGPT 17 U/l (0-40); Albumin/Globulin Ratio 0.8 (1.0-2.3); Alkaline Phosphatase 227 U/L (39-117); Bilirubin,Direct 0.7 mg/dL (0.0-0.3); Blood Urea Nitrogen 38 mg/dl (8-23); Gamma Glutamyl Transpeptidase 110 U/L (8-61); Uric Acid 10.7 mg/dL (2.5-8.0)
[2018-10-15] MEDS: METOLAZONE 2.5 MG TABLET PO SCH ×2 (07:29→15:17)
[2018-10-15] MEDS: FUROSEMIDE 100 MG/10 ML VIAL IV SCH (08:04)
[2018-10-15] MEDS: POTASSIUM CHLORIDE 20 MEQ PACKET PO SCH ×2 (09:16→12:52)
[2018-10-15] MEDS: ALLOPURINOL 100 MG TABLET PO SCH (09:16)
[2018-10-15] MEDS: MULTIVIT,THER IRON,CA,FA & MIN 1 TABLET PO SCH (09:16)
[2018-10-15] MEDS: RIVAROXABAN 20 MG TABLET PO SCH (09:22)
[2018-10-15] MEDS: CEFEPIME 1 GM VIAL IV SCH (10:24)
[2018-10-15] MEDS ORDERED: acetaZOLAMIDE SOD 500 MG VIAL IV ONE (15:06)
--- NOTE | 2018-10-15 17:39 | Internal Med Progress Note ---
Medical - PN: Subj Patient information: Note initiated : 10/15/18 at 5:20 pm Service Date, if different from initiated Date: [] Patient: Liz Bland a 73 y/o M admitted on 10/12/18 for Shortness of breath. Chief Complaint: Follow-up CHF Interval history: Mr. Bland is a 73 year old M with multiple medical issues, CHF, presents to the ER today for evaluation of shortness of breath. The patient is a resident of [facility], notes that he has been feeling short of breath for the last 2-3 weeks. He was discharged from [facility] 6 weeks ago when he was admitted with diagnosis of possible p neumonia and congestive heart failure. The patient notes for the last 3 weeks has been getting progressively short of breath, difficult to do minimal ambulation, and increased swelling in his lower extremity. He has been having cough which is dry. He denies any other complaints. He denies any palpitations denies any chest pain dizziness, denies any headache changes in vision has chronic loss of vision, denies any changing in hearing difficulty in swallowing, denies any nausea abdominal pain diarrhea constipation. Denies any new joint pains or skin rashes. Denies any psychiatric complaints. The patient on presentation to the ER had a low-grade temperature of 99.5, blood pressure 117/80, respirations 18 saturating 92% on 2-3 L of oxygen. EKG showed atrial fibrillation wide QRS complex left axis deviation. No old EKG to compare. Chest x-ray shows severe congestive heart failure Labs show WBC count of 5.7 hemoglobin 14 platelets 172, sodium 135 potassium 3.2 bicarbonate 35 creatinine 1.2 bilirubin 1.7, BNP elevated at 6715 troponin is negative Patient is being admitted to the hospital for further management 10/13 Pt seen examined, no acute overnight issues, tolerating po diet well, sitting in chair, reports breathing better, but not back to baseline, still weak and tired. / Pt seen examined, feels fatigued, but no other complaints or concerns still has low grade temp otherwise no issues neg 7340 since admission, still has significant lower extremity edema K low, replace 2/6 Seem to be more short of breath this morning. Continues to diuresis. ABG shows metabolic alkalosis, partially compensated. Serum bicarbonate up to 40. Still very weak, still with lower extremity edema. MAXIMUM TEMPERATURE 99.6, but no other symptoms of infection. Some blood noted with bowel movement today, has some raw perirectal areas - Constitutional Vitals: Vital Signs Temp Pulse Resp BP Pulse Ox 98.3 F 84 18 97/67 93 10/15/18 16:00 10/15/18 16:00 10/15/18 16:00 10/15/18 16:00 10/15/18 16:00 Period Temp Pulse Resp BP Sys/Levin Pulse Ox Last 24 Hr 98.3 F-99.6 F 68-84 16-20 96-110/64-67 93-99 Intake and Output 10/15/18 10/15/18 10/15/18 05:59 13:59 21:59 Intake Total 850 360 Output Total 650 1500 650 Balance -650 -650 -290 Intake & Output: Intake & Output 10/15/18 10/15/18 10/15/18 05:59 13:59 21:59 Intake Total 850 360 Output Total 650 1500 650 Balance -650 -650 -290 Intake: Oral 850 360 Output: Urine Catheter Amount 650 1500 650 Other: Meal Lunch Lucy Percent of Meal Consumed 100% 100% Feeding Ability Assist with Tray Set Up Urine Appearance Clear Clear Clear Urine Color Blood Tinged Straw Straw Uretheral (Roque) Dark Yellow Light Yara Stool Size Moderate Moderate Stool Color Brown Brown Stool Consistency Liquid Liquid Loose Loose # Bowel Movements 1 1 Exam: General: In bed, no acute distress Chest: Diminished at the bases bilaterally Cardiovascular: Irregularly irregular, 2+ lower extremity edema Abdomen: Obese, soft, nontender Skin/rectum: Some excoriation with losing perirectally. Neuro: Alert, oriented, generally weak Medical - PN: Obj Da - Labs CBC & Chem 7: 10/15/18 04:00 10/15/18 04:00 Labs: Abnormal Lab Results 10/15/18 10/15/18 10/14/18 04:00 04:00 04:15 RBC 3.84 L Hgb 12.4 L Hct 37.7 L RDW 15.1 H Lymph % (Auto) Wake % (Auto) 12.9 H Eos % (Auto) 9.3 H Lymph # (Auto) 1.0 L Potassium 3.1 L 2.9 L* Chloride 85 L 88 L Carbon Dioxide 40 H 36 H Anion Gap BUN 38 H 37 H Creatinine 1.3 H 1.4 H Glucose 112 H Uric Acid 10.7 H 10.6 H Total Bilirubin 1.5 H 1.4 H Direct Bilirubin 0.7 H 0.7 H GGT 110 H 110 H Alkaline Phosphatase 227 H 222 H Lactate Dehydrogenase 290 H 265 H Albumin 3.0 L 3.0 L Globulin 3.9 H 3.9 H Albumin/Globulin Ratio 0.8 L 0.8 L 10/14/18 10/13/18 10/13/18 04:15 08:27 08:27 RBC 3.84 L 4.25 L Hgb 12.3 L 13.4 L Hct 37.7 L RDW 15.1 H 15.0 H Lymph % (Auto) 14.1 L Wake % (Auto) 12.9 H 12.8 H Eos % (Auto) 8.3 H 9.3 H Lymph # (Auto) 0.8 L 0.9 L Potassium Chloride 89 L Carbon Dioxide 40 H Anion Gap 6.0 L BUN 34 H Creatinine 1.5 H Glucose 113 H Uric Acid 10.6 H Total Bilirubin 1.4 H Direct Bilirubin 0.6 H GGT 114 H Alkaline Phosphatase 245 H Lactate Dehydrogenase 277 H Albumin 3.1 L Globulin 4.3 H Albumin/Globulin Ratio 0.7 L Meds: Medications Acetaminophen (Tylenol) 650 mg PO Q6HP PRN PRN Reason: PAIN/FEVER > 101 Acetazolamide Sodium (Diamox) 500 mg IV DAILY [facility] Stop: 10/16/18 09:01 Albuterol/Ipratropium (Duoneb) 3 ml NEB Q4HRT PRN PRN Reason: Shortness Of Breath Or Wheezing Allopurinol (Zyloprim) 100 mg PO MoWeFr@0900 [facility] Last Admin: 10/15/18 09:16 Dose: 100 mg Documented by: Iron Carb/Multivit/Sauk/Folic Acid (Multivitamin W/Minerals) 1 tab PO DAILY [facility] Last Admin: 10/15/18 09:16 Dose: 1 tab Documented by: Metolazone (Zaroxolyn) 2.5 mg PO BID@0730,1530 [facility] Last Admin: 10/15/18 15:17 Dose: 2.5 mg Documented by: Naloxone HCl (Narcan) 0.1 mg IV Q2MIN PRN PRN Reason: Opiate Reversal Nystatin (Nystatin Crm) 0 dose TOPICAL BIDP PRN PRN Reason: Rash Ondansetron HCl (Zofran) 4 mg IV Q4HP PRN PRN Reason: Nausea And Vomiting Oxycodone/Acetaminophen (Percocet 5-325 Mg) 1 tab PO Q4HP PRN PRN Reason: Pain Level >5 Last Admin: 10/14/18 20:17 Dose: 1 tab Documented by: Rivaroxaban (Xarelto) 20 mg PO DAILY [facility] Last Admin: 10/15/18 09:22 Dose: 20 mg Documented by: Sodium Chloride (Saline Flush) 10 ml IV Q8 [facility] Last Admin: 10/15/18 14:23 Dose: 10 ml Documented by: Tramadol HCl (Ultram) 50 mg PO BIDP PRN PRN Reason: Pain - ABG Interpretation Interpretation: metabolic alkalosis (partially compensated) Medical - PN: A/P - Time Spent With Patient Total time spent is greater than 50% in coordination of care (as documented) at patient's floor/unit and/or counseling patient: Greater than 35 minutes - Narrative A/P Narrative: Acute congestive heart failure, Systolic and Diastolic -Pt last echo done 07/27, at [facility] shows mildly dilated left ventricle, 30-35% ejection fraction, regional wall motion abnormalities, and grade 3 diastolic dysfunction -On 10/15 developing contraction alkalosis -Discontinue IV furosemide, give 2 doses of IV Diamox -Lactate 3.2 on ABG, but no SIRS, no sepsis, negative cultures. Suspect reflects perfusion status from CHF. -Continue to follow intake/output renal function and acid base status Acute kidney injury from diuretic use monitor renal function creat is 1.3, continues to improve Pneumonia -Patient has a fever, although there is no white count and pro-calcitonin was negative. Blood cultures at admission are without growth. Started on broad- spectrum antibiotics at admission. -Patient has temperature up to 99.6, but no fever. Cultures without growth. -Discontinue antibiotics, monitor Hypokalemia -Potassium 3.1 this morning, continue to replace Atrial fibrillation -Rate reasonably controlled at this time, on anticoagulation with Xarelto, beta- blockers Coreg resumed Gout -Resume allopurinol Hypertension -Blood pressure improved, back on carvedilol. OT/PT/ST rehab DVT on Xarelto Full code, no family, has friend mac, who lives with him, should he be on the machine for long peroid, then his friend to decide when to pull the plug. Medical - PN: Qual - Stroke Symptom Onset Unknown: No - VTE Deep Vein Thrombosis/Pulmonary Embolism Present on Admission: No
[2018-10-15] MEDS: oxyCODONE/APAP 5/325MG TABLET PO PRN (21:01)
[2018-10-16] MEDS: 0.9 % SODIUM CHLORIDE 10 ML SYRINGE IV SCH ×4 (03:59→21:19)
[2018-10-16 05:36] LABS: Basophils # (Auto) 0 K/mcL (0.0-0.3); Basophils % (Auto) 0.7 % (0.0-2.0); Eosinophils # (Auto) 0.7 K/mcL (0.0-0.7); Eosinophils % (Auto) 10.2 % (0.0-7.0); Granulocytes % (Auto) 61.8 % (38.0-78.0); Lymphocytes # (Auto) 1.1 K/mcL (1.5-4.8); Lymphocytes % (Auto) 16.9 % (15.5-49.0); Mean Corpuscular HGB Conc 32.6 g/dL (31.0-36.0); Monocytes # (Auto) 0.7 K/mcL (0.1-0.9); Monocytes % (Auto) 10.4 % (1.0-12.0); Platelet Count 183 K/mcL (140-440); RBC 3.94 M/mcL (4.50-5.90); Red Cell Distribution Width 14.7 % (11.5-14.5)
[2018-10-16 06:31] LABS: ALT/SGPT 16 U/l (0-40); Albumin 2.9 gm/dL (3.2-5.2); Albumin/Globulin Ratio 0.7 (1.0-2.3); Alkaline Phosphatase 226 U/L (39-117); Bilirubin,Direct 0.6 mg/dL (0.0-0.3); Blood Urea Nitrogen 39 mg/dl (8-23); Gamma Glutamyl Transpeptidase 107 U/L (8-61); Uric Acid 10.9 mg/dL (2.5-8.0)
[2018-10-16] MEDS: MULTIVIT,THER IRON,CA,FA & MIN 1 TABLET PO SCH (08:08)
[2018-10-16] MEDS: RIVAROXABAN 20 MG TABLET PO SCH (08:08)
[2018-10-16] MEDS: METOLAZONE 2.5 MG TABLET PO SCH ×2 (08:08→15:29)
[2018-10-16] MEDS: POTASSIUM CHLORIDE 20 MEQ PACKET PO SCH ×3 (08:51→17:28)
[2018-10-16] MEDS ORDERED: acetaZOLAMIDE SOD 500 MG VIAL IV SCH (09:00)
[2018-10-16] MEDS ORDERED: CARVEDILOL 3.125 MG TABLET PO ONE (09:04)
--- NOTE | 2018-10-16 12:57 | Ultrasound Report ---
History: Elevated liver enzymes FINDINGS: The liver is normal in size. It is somewhat dense and difficult to penetrate. This may be due to mild fatty infiltration. No mass is seen within the liver. Doppler shows normal blood flow in the hepatic and portal veins. The gallbladder contains numerous small layering gallstones. The wall is thickened and measures up to 4 mm. There is no tenderness while scanning over the gallbladder and no para cholecystic fluid collection is present. The intrahepatic ducts are nondilated. Common bile duct measures up to 6 mm which is within normal limits. The pancreas was incompletely visualized but the visualized portions appear normal. There is a moderate size pleural effusion in the right lower thorax. IMPRESSION: Cholelithiasis and thickened gallbladder wall suggesting chronic cholecystitis Possible mild fatty infiltration of the liver Moderate right-sided pleural effusion Interpreted and Authenticated by: Geovanni Goldberg 10/16/18
[2018-10-16] MEDS: CARVEDILOL 3.125 MG TABLET PO SCH (17:26)
--- NOTE | 2018-10-16 20:49 | Internal Med Progress Note ---
Medical - PN: Subj Patient information: Note initiated : 10/16/18 at 8:47 pm Service Date, if different from initiated Date: [] Patient: Liz Bland a 73 y/o M admitted on 10/12/18 for Shortness of breath. Chief Complaint: Follow-up CHF Interval history: Mr. Bland is a 73 year old M with multiple medical issues, CHF, presents to the ER today for evaluation of shortness of breath. The patient is a resident of [facility], notes that he has been feeling short of breath for the last 2-3 weeks. He was discharged from [facility] 6 weeks ago when he was admitted with diagnosis of possible p neumonia and congestive heart failure. The patient notes for the last 3 weeks has been getting progressively short of breath, difficult to do minimal ambulation, and increased swelling in his lower extremity. He has been having cough which is dry. He denies any other complaints. He denies any palpitations denies any chest pain dizziness, denies any headache changes in vision has chronic loss of vision, denies any changing in hearing difficulty in swallowing, denies any nausea abdominal pain diarrhea constipation. Denies any new joint pains or skin rashes. Denies any psychiatric complaints. The patient on presentation to the ER had a low-grade temperature of 99.5, blood pressure 117/80, respirations 18 saturating 92% on 2-3 L of oxygen. EKG showed atrial fibrillation wide QRS complex left axis deviation. No old EKG to compare. Chest x-ray shows severe congestive heart failure Labs show WBC count of 5.7 hemoglobin 14 platelets 172, sodium 135 potassium 3.2 bicarbonate 35 creatinine 1.2 bilirubin 1.7, BNP elevated at 6715 troponin is negative Patient is being admitted to the hospital for further management 10/13 Pt seen examined, no acute overnight issues, tolerating po diet well, sitting in chair, reports breathing better, but not back to baseline, still weak and tired. / Pt seen examined, feels fatigued, but no other complaints or concerns still has low grade temp otherwise no issues neg 7340 since admission, still has significant lower extremity edema K low, replace 2/6 Seem to be more short of breath this morning. Continues to diuresis. ABG shows metabolic alkalosis, partially compensated. Serum bicarbonate up to 40. Still very weak, still with lower extremity edema. MAXIMUM TEMPERATURE 99.6, but no other symptoms of infection. Some blood noted with bowel movement today, has some raw perirectal areas 2/7 Tired today. Received acetazolamide yesterday afternoon and this morning, serum bicarbonate is improved. Still some dyspnea. Temperature is remaining normal off antibiotics. Liver enzymes have been elevated, ultrasound obtained today. - Constitutional Vitals: Vital Signs Temp Pulse Resp BP Pulse Ox 98.4 F 78 18 91/63 94 10/16/18 19:13 10/16/18 19:13 10/16/18 19:13 10/16/18 19:13 10/16/18 19:57 Period Temp Pulse Resp BP Sys/Levin Pulse Ox Last 24 Hr 97.6 F-98.9 F 65-78 18-20 91-107/55-75 92-100 Intake and Output 10/16/18 10/16/18 10/16/18 05:59 13:59 21:59 Intake Total 30 650 Output Total 1075 800 325 Balance -1045 -800 325 Intake & Output: Intake & Output 10/16/18 10/16/18 10/16/18 05:59 13:59 21:59 Intake Total 30 650 Output Total 1075 800 325 Balance -1045 -800 325 Intake: Oral 30 650 Output: Urine Catheter Amount 1075 800 325 Other: Meal Nourishment/Supplement Breakfast Percent of Meal Consumed 100% 100% Feeding Ability Independent Nourishment/Supplement name egg sandwich Urine Appearance Clear Clear Uretheral (Roque) Clear Urine Color Dark Yellow Dark Yara Light Yara Uretheral (Roque) Dark Yellow Dark Yellow Urine Odor Normal Normal Strong Exam: General: In bed, appears fatigued Chest: Few basilar rales Cardiovascular: Irregular, legs and wraps, trace edema at the knees. Abdomen: Soft, nontender Neuro: Tired, generally weak, but alert and oriented to person, place and situation. Medical - PN: Obj Da - Labs CBC & Chem 7: 10/16/18 03:50 10/16/18 03:50 Labs: Abnormal Lab Results 10/16/18 10/16/18 10/15/18 03:50 03:50 04:00 RBC 3.94 L Hgb 12.6 L Hct 38.7 L RDW 14.7 H Lymph % (Auto) [place] % (Auto) Eos % (Auto) 10.2 H Lymph # (Auto) 1.1 L Potassium 3.0 L 3.1 L Chloride 87 L 85 L Carbon Dioxide 37 H 40 H BUN 39 H 38 H Creatinine 1.3 H Glucose 110 H Uric Acid 10.9 H 10.7 H Total Bilirubin 1.4 H 1.5 H Direct Bilirubin 0.6 H 0.7 H GGT 107 H 110 H Alkaline Phosphatase 226 H 227 H Lactate Dehydrogenase 277 H 290 H Albumin 2.9 L 3.0 L Globulin 4.3 H 3.9 H Albumin/Globulin Ratio 0.7 L 0.8 L 10/15/18 10/14/18 10/14/18 04:00 04:15 04:15 RBC 3.84 L 3.84 L Hgb 12.4 L 12.3 L Hct 37.7 L 37.7 L RDW 15.1 H 15.1 H Lymph % (Auto) 14.1 L [place] % (Auto) 12.9 H 12.9 H Eos % (Auto) 9.3 H 8.3 H Lymph # (Auto) 1.0 L 0.8 L Potassium 2.9 L* Chloride 88 L Carbon Dioxide 36 H BUN 37 H Creatinine 1.4 H Glucose 112 H Uric Acid 10.6 H Total Bilirubin 1.4 H Direct Bilirubin 0.7 H GGT 110 H Alkaline Phosphatase 222 H Lactate Dehydrogenase 265 H Albumin 3.0 L Globulin 3.9 H Albumin/Globulin Ratio 0.8 L Meds: Medications Acetaminophen (Tylenol) 650 mg PO Q6HP PRN PRN Reason: PAIN/FEVER > 101 Albuterol/Ipratropium (Duoneb) 3 ml NEB Q4HRT PRN PRN Reason: Shortness Of Breath Or Wheezing Allopurinol (Zyloprim) 100 mg PO MoWeFr@0900 [facility] Last Admin: 10/15/18 09:16 Dose: 100 mg Documented by: Carvedilol (Coreg) 3.125 mg PO BIDCC [facility] Last Admin: 10/16/18 17:26 Dose: 3.125 mg Documented by: Iron Carb/Multivit/Surgical Aide/Folic Acid (Multivitamin W/Minerals) 1 tab PO DAILY [facility] Last Admin: 10/16/18 08:08 Dose: 1 tab Documented by: Metolazone (Zaroxolyn) 2.5 mg PO BID@3930,5320 [facility] Last Admin: 10/16/18 15:29 Dose: 2.5 mg Documented by: Naloxone HCl (Narcan) 0.1 mg IV Q2MIN PRN PRN Reason: Opiate Reversal Nystatin (Nystatin Crm) 0 dose TOPICAL BIDP PRN PRN Reason: Rash Ondansetron HCl (Zofran) 4 mg IV Q4HP PRN PRN Reason: Nausea And Vomiting Oxycodone/Acetaminophen (Percocet 5-325 Mg) 1 tab PO Q4HP PRN PRN Reason: Pain Level >5 Last Admin: 10/15/18 21:01 Dose: 1 tab Documented by: Rivaroxaban (Xarelto) 20 mg PO DAILY [facility] Last Admin: 10/16/18 08:08 Dose: 20 mg Documented by: Sodium Chloride (Saline Flush) 10 ml IV Q8 [facility] Last Admin: 10/16/18 14:08 Dose: 10 ml Documented by: Tramadol HCl (Ultram) 50 mg PO BIDP PRN PRN Reason: Pain Medical - PN: A/P - Narrative A/P Narrative: Acute congestive heart failure, Systolic and Diastolic -Pt last echo done 07/27, at [facility] shows mildly dilated left ventricle, 30-35% ejection fraction, regional wall motion abnormalities, and grade 3 diastolic dysfunction -On 10/15 developing contraction alkalosis, improved after 2 doses of Diamox -Lactate 3.2 on ABG, but no SIRS, no sepsis, negative cultures. Suspect ref lects perfusion status from CHF. -Continue to follow intake/output renal function and acid base status -Resume twice daily furosemide on 10/17 -Recheck BNP Acute kidney injury -from diuretic use -monitor renal function -creat continues to improve Abnormal liver enzymes -Noted over the past few days, mildly worse -Ultrasound with edema around the gallbladder, nothing to suggest acute cholecystitis -Spec secondary to passive congestion/CHF Pneumonia -Patient had a fever, although there is no white count and pro-calcitonin was negative. Blood cultures at admission are without growth. Started on broad- spectrum antibiotics at admission. -Patient has temperature up to 99.6, but no fever. Cultures without growth. -Discontinue antibiotics, monitor, remains afebrile on 10/16 Hypokalemia -Continue to replace Atrial fibrillation -Rate reasonably controlled at this time, on anticoagulation with Xarelto, beta- blockers Coreg resumed Gout -Resume allopurinol Hypertension -Blood pressure improved, back on carvedilol. OT/PT/ST rehab DVT on Xarelto Full code, no family, has friend John, who lives with him, should he be on the machine for long period, then his friend to decide when to pull the plug. Medical - PN: Qual - Stroke Symptom Onset Unknown: No - VTE Deep Vein Thrombosis/Pulmonary Embolism Present on Admission: No
[2018-10-16] MEDS: oxyCODONE/APAP 5/325MG TABLET PO PRN (23:56)
[2018-10-17] MEDS: 0.9 % SODIUM CHLORIDE 10 ML SYRINGE IV SCH ×3 (05:11→22:02)
[2018-10-17 06:44] LABS: ALT/SGPT 14 U/l (0-40); Albumin 2.8 gm/dL (3.2-5.2); Albumin/Globulin Ratio 0.7 (1.0-2.3); Alkaline Phosphatase 217 U/L (39-117); Bilirubin,Direct 0.5 mg/dL (0.0-0.3); Blood Urea Nitrogen 34 mg/dl (8-23); Gamma Glutamyl Transpeptidase 99 U/L (8-61)
[2018-10-17] MEDS: CARVEDILOL 3.125 MG TABLET PO SCH ×2 (07:26→16:39)
[2018-10-17] MEDS: METOLAZONE 2.5 MG TABLET PO SCH ×2 (07:26→15:27)
[2018-10-17] MEDS ORDERED: DOCUSATE SODIUM 100 MG CAPSULE PO PRN (09:11)
[2018-10-17] MEDS: RIVAROXABAN 20 MG TABLET PO SCH (09:33)
[2018-10-17] MEDS: ALLOPURINOL 100 MG TABLET PO SCH (09:33)
[2018-10-17] MEDS: MULTIVIT,THER IRON,CA,FA & MIN 1 TABLET PO SCH (09:33)
[2018-10-17] MEDS: FUROSEMIDE 100 MG/10 ML VIAL IV SCH ×2 (09:56→16:40)
--- NOTE | 2018-10-17 14:29 | Internal Med Progress Note ---
Medical - PN: Subj Patient information: Note initiated : 10/17/18 at 2:28 pm Service Date, if different from initiated Date: [] Patient: Liz Bland a 73 y/o M admitted on 10/12/18 for Shortness of breath. Chief Complaint: f/u CHF Interval history: Mr. Bland is a 73 year old M with multiple medical issues, CHF, presents to the ER today for evaluation of shortness of breath. The patient is a resident of [facility], notes that he has been feeling short of breath for the last 2-3 weeks. He was discharged from [facility] 6 weeks ago when he was admitted with diagnosis of possible pneumonia and congestive heart failure. The patient notes for the last 3 weeks has been getting progressively short of breath, difficult to do minimal ambulation, and increased swelling in his lower extremity. He has been having cough which is dry. He denies any other complaints. He denies any palpitations denies any chest pain dizziness, denies any headache changes in vision has chronic loss of vision, denies any changing in hearing difficulty in swallowing, denies any nausea abdominal pain diarrhea constipation. Denies any new joint pains or skin rashes. Denies any psychiatric complaints. The patient on presentation to the ER had a low-grade temperature of 99.5, blood pressure 117/80, respirations 18 saturating 92% on 2-3 L of oxygen. EKG showed atrial fibrillation wide QRS complex left axis deviation. No old EKG to compare. Chest x-ray shows severe congestive heart failure Labs show WBC count of 5.7 hemoglobin 14 platelets 172, sodium 135 potassium 3.2 bicarbonate 35 creatinine 1.2 bilirubin 1.7, BNP elevated at 6715 troponin is negative Patient is being admitted to the hospital for further management 10/13 Pt seen examined, no acute overnight issues, tolerating po diet well, sitting in chair, reports breathing better, but not back to baseline, still weak and tired. / Pt seen examined, feels fatigued, but no other complaints or concerns still has low grade temp otherwise no issues neg 7340 since admission, still has significant lower extremity edema K low, replace 2/6 Seem to be more short of breath this morning. Continues to diuresis. ABG shows metabolic alkalosis, partially compensated. Serum bicarbonate up to 40. Still very weak, still with lower extremity edema. MAXIMUM TEMPERATURE 99.6, but no other symptoms of infection. Some blood noted with bowel movement today, has some raw perirectal areas 2 Tired today. Received acetazolamide yesterday afternoon and this morning, serum bicarbonate is improved. Still some dyspnea. Temperature is remaining normal off antibiotics. Liver enzymes have been elevated, ultrasound obtained today. 10/17 Feeling stronger today, slept pretty well last night. Is up in chair for a while. Less dyspnea with exertion. Still significant lower extremity edema. - Constitutional Vitals: Vital Signs Temp Pulse Resp BP Pulse Ox 98.6 F 73 24 H 102/61 92 10/17/18 12:00 10/17/18 03:50 10/17/18 12:00 10/17/18 12:00 10/17/18 12:00 Period Temp Pulse Resp BP Sys/Levin Pulse Ox Last 24 Hr 96.8 F-98.6 F 67-78 16-24 91-118/61-72 92-100 Intake and Output 10/17/18 10/17/18 10/17/18 05:59 13:59 21:59 Intake Total 320 300 Output Total 900 900 Balance -580 -600 Intake & Output: Intake & Output 10/17/18 10/17/18 10/17/18 05:59 13:59 21:59 Intake Total 320 300 Output Total 900 900 Balance -580 -600 Intake: Oral 320 300 Output: Urine Catheter Amount 900 900 Other: Urine Appearance Uretheral (Roque) Clear Urine Color Light Yara Uretheral (Roque) Light Yara Urine Odor Normal Exam: Gen: In bed, in good spirits, not as tired Chest: Few rales, unlabored CV: Irreg irreg, neck veins still distended, 2+ edema Abd: Soft, NT, obese Neuro: Alert, Ox3, no focal weakness, but has generalized debility Medical - PN: Obj Da - Labs CBC & Chem 7: 10/18/18 03:55 10/18/18 03:55 Labs: Abnormal Lab Results 10/17/18 10/17/18 10/16/18 03:45 03:45 03:50 RBC Hgb Hct RDW [place] % (Auto) Eos % (Auto) Lymph # (Auto) Potassium 3.0 L Chloride 93 L 87 L Carbon Dioxide 33 H 37 H BUN 34 H 39 H Creatinine Glucose 110 H Uric Acid 10.0 H 10.9 H Total Bilirubin 1.4 H 1.4 H Direct Bilirubin 0.5 H 0.6 H GGT 99 H 107 H Alkaline Phosphatase 217 H 226 H Lactate Dehydrogenase 277 H NT-Pro-B Natriuret Pep 8027.0 H Albumin 2.8 L 2.9 L Globulin 3.9 H 4.3 H Albumin/Globulin Ratio 0.7 L 0.7 L 10/16/18 10/15/18 10/15/18 03:50 04:00 04:00 RBC 3.94 L 3.84 L Hgb 12.6 L 12.4 L Hct 38.7 L 37.7 L RDW 14.7 H 15.1 H [place] % (Auto) 12.9 H Eos % (Auto) 10.2 H 9.3 H Lymph # (Auto) 1.1 L 1.0 L Potassium 3.1 L Chloride 85 L Carbon Dioxide 40 H BUN 38 H Creatinine 1.3 H Glucose Uric Acid 10.7 H Total Bilirubin 1.5 H Direct Bilirubin 0.7 H GGT 110 H Alkaline Phosphatase 227 H Lactate Dehydrogenase 290 H NT-Pro-B Natriuret Pep Albumin 3.0 L Globulin 3.9 H Albumin/Globulin Ratio 0.8 L Meds: Medications Acetaminophen (Tylenol) 650 mg PO Q6HP PRN PRN Reason: PAIN/FEVER > 101 Albuterol/Ipratropium (Duoneb) 3 ml NEB Q4HRT PRN PRN Reason: Shortness Of Breath Or Wheezing Allopurinol (Zyloprim) 100 mg PO MoWeFr@0900 [facility] Last Admin: 10/17/18 09:33 Dose: 100 mg Documented by: Carvedilol (Coreg) 3.125 mg PO BIDCC [facility] Last Admin: 10/17/18 07:26 Dose: 3.125 mg Documented by: Docusate Sodium (Colace) 100 mg PO BIDP PRN PRN Reason: Constipation Furosemide (Lasix) 80 mg IV BIDD [facility] Last Admin: 10/17/18 09:56 Dose: 80 mg Documented by: Iron Carb/Multivit/Pole Inspector/Folic Acid (Multivitamin W/Minerals) 1 tab PO DAILY [facility] Last Admin: 10/17/18 09:33 Dose: 1 tab Documented by: Metolazone (Zaroxolyn) 2.5 mg PO BID@0730,1530 [facility] Last Admin: 10/17/18 07:26 Dose: 2.5 mg Documented by: Naloxone HCl (Narcan) 0.1 mg IV Q2MIN PRN PRN Reason: Opiate Reversal Nystatin (Nystatin Crm) 0 dose TOPICAL BIDP PRN PRN Reason: Rash Ondansetron HCl (Zofran) 4 mg IV Q4HP PRN PRN Reason: Nausea And Vomiting Oxycodone/Acetaminophen (Percocet 5-325 Mg) 1 tab PO Q4HP PRN PRN Reason: Pain Level >5 Last Admin: 10/16/18 23:56 Dose: 1 tab Documented by: Rivaroxaban (Xarelto) 20 mg PO DAILY [facility] Last Admin: 10/17/18 09:33 Dose: 20 mg Documented by: Sodium Chloride (Saline Flush) 10 ml IV Q8 [facility] Last Admin: 10/17/18 05:11 Dose: 10 ml Documented by: Tramadol HCl (Ultram) 50 mg PO BIDP PRN PRN Reason: Pain Medical - PN: A/P - Narrative A/P Narrative: Acute congestive heart failure, combined systolic and diastolic -Pt last echo done 07/27, at [facility] shows mildly dilated left ventricle, 30-35% ejection fraction, regional wall motion abnormalities, and grade 3 diastolic dysfunction -On 10/15 developing contraction alkalosis, improved after 2 doses of Diamox -Lactate 3.2 on ABG on 10/15, but no SIRS, no sepsis, negative cultures. Suspect reflects perfusion status from CHF. -Continue to follow intake/output renal function and acid base status -Resumed twice daily furosemide on 10/17 -Rechecking BNP Acute kidney injury -from diuretic use -monitor renal function -creat continues to improve Abnormal liver enzymes -Noted over the past few days, mildly worse -Ultrasound with edema around the gallbladder, nothing to suggest acute cholecystitis -Suspect this is secondary to passive congestion/CHF Pneumonia -Patient had a fever, although there is no white count and pro-calcitonin was negative. Blood cultures at admission are without growth. Started on broad- spectrum antibiotics at admission. -Patient has temperature up to 99.6, but no fever. Cultures without growth. -Discontinue antibiotics, monitor, remains afebrile on 10/16 Hypokalemia -Continue to replace Atrial fibrillation -Rate reasonably controlled at this time, on anticoagulation with Xarelto, beta- blockers Coreg resumed Gout -Resume allopurinol Hypertension -Blood pressure improved, back on carvedilol. OT/PT/ST rehab DVT on Xarelto Full code, no family, has friend John, who lives with him, should he be on the machine for long period, then his friend to decide when to pull the plug. Medical - PN: Qual - Stroke Symptom Onset Unknown: No - VTE Deep Vein Thrombosis/Pulmonary Embolism Present on Admission: No
[2018-10-17] MEDS ORDERED: FUROSEMIDE 100 MG/10 ML VIAL IV SCH (16:00)
[2018-10-17] MEDS: oxyCODONE/APAP 5/325MG TABLET PO PRN (17:25)
[2018-10-18 05:43] LABS: Mean Cell Volume 99.3 fL (80.0-100.0); Mean Corpuscular HGB Conc 32.2 g/dL (31.0-36.0); Platelet Count 174 K/mcL (140-440); RBC 4.18 M/mcL (4.50-5.90); Red Cell Distribution Width 14.6 % (11.5-14.5)
[2018-10-18] MEDS: 0.9 % SODIUM CHLORIDE 10 ML SYRINGE IV SCH ×3 (05:53→21:06)
[2018-10-18 06:32] LABS: ALT/SGPT 15 U/l (0-40); Albumin 2.7 gm/dL (3.2-5.2); Albumin/Globulin Ratio 0.6 (1.0-2.3); Alkaline Phosphatase 219 U/L (39-117); Bilirubin,Direct 0.5 mg/dL (0.0-0.3); Blood Urea Nitrogen 46 mg/dl (8-23); Gamma Glutamyl Transpeptidase 101 U/L (8-61); Uric Acid 10.8 mg/dL (2.5-8.0)
[2018-10-18 07:00] LABS: Eosinophils % (Manual) 7 % (0-7); Lymphocytes % 13 % (15-49); Monocytes % (Manual) 13 % (1-12); Platelet Estimate NORMAL (NORMAL); RBC Morphology NORMAL (NORMAL); Segmented Neutrophils % 67 % (38-78)
[2018-10-18] MEDS: METOLAZONE 2.5 MG TABLET PO SCH ×2 (07:43→16:37)
[2018-10-18] MEDS: MULTIVIT,THER IRON,CA,FA & MIN 1 TABLET PO SCH (08:13)
[2018-10-18] MEDS: CARVEDILOL 3.125 MG TABLET PO SCH ×2 (08:13→17:24)
[2018-10-18] MEDS: FUROSEMIDE 100 MG/10 ML VIAL IV SCH (08:14)
[2018-10-18] MEDS: RIVAROXABAN 20 MG TABLET PO SCH (08:14)
[2018-10-18] MEDS: oxyCODONE/APAP 5/325MG TABLET PO PRN (08:27)
--- NOTE | 2018-10-18 10:45 | Internal Med Progress Note ---
Medical - PN: Subj Patient information: Note initiated : 10/18/18 at 10:29 am Service Date, if different from initiated Date: [] Patient: Liz Bland a 73 y/o M admitted on 10/12/18 for Shortness of breath. Chief Complaint: [] Interval history: Mr. Bland is a 73 year old M with multiple medical issues, CHF, presents to the ER today for evaluation of shortness of breath. The patient is a resident of [facility], notes that he has been feeling short of breath for the last 2-3 weeks. He was discharged from [facility] 6 weeks ago when he was admitted with diagnosis of possible pneumonia and congestive heart failure. The patient notes for the last 3 weeks has been getting progressively short of breath, difficult to do minimal ambulation, and increased swelling in his lower extremity. He has been having cough which is dry. He denies any other complaints. He denies any palpitations denies any chest pain dizziness, denies any headache changes in vision has chronic loss of vision, denies any changing in hearing difficulty in swallowing, denies any nausea abdominal pain diarrhea c onstipation. Denies any new joint pains or skin rashes. Denies any psychiatric complaints. The patient on presentation to the ER had a low-grade temperature of 99.5, blood pressure 117/80, respirations 18 saturating 92% on 2-3 L of oxygen. EKG showed atrial fibrillation wide QRS complex left axis deviation. No old EKG to compare. Chest x-ray shows severe congestive heart failure Labs show WBC count of 5.7 hemoglobin 14 platelets 172, sodium 135 potassium 3.2 bicarbonate 35 creatinine 1.2 bilirubin 1.7, BNP elevated at 6715 troponin is negative Patient is being admitted to the hospital for further management 10/13 Pt seen examined, no acute overnight issues, tolerating po diet well, sitting in chair, reports breathing better, but not back to baseline, still weak and tired. / Pt seen examined, feels fatigued, but no other complaints or concerns still has low grade temp otherwise no issues neg 7340 since admission, still has significant lower extremity edema K low, replace 2/6 Seem to be more short of breath this morning. Continues to diuresis. ABG shows metabolic alkalosis, partially compensated. Serum bicarbonate up to 40. Still very weak, still with lower extremity edema. MAXIMUM TEMPERATURE 99.6, but no other symptoms of infection. Some blood noted with bowel movement today, has some raw perirectal areas 10/16 Tired today. Received acetazolamide yesterday afternoon and this morning, serum bicarbonate is improved. Still some dyspnea. Temperature is remaining normal off antibiotics. Liver enzymes have been elevated, ultrasound obtained today. 10/17 Feeling stronger today, slept pretty well last night. Is up in chair for a while. Less dyspnea with exertion. Still significant lower extremity edema. 10/18-patient doing a lot better. Improved diuresing well. W. No overnight events, telemetry A. fib with left bundle. Ongoing physical therapy focusing on strengthening. Continue nutrition support - Constitutional Vitals: Vital Signs Temp Pulse Resp BP Pulse Ox 97.8 F 68 16 99/67 91 10/18/18 06:58 10/18/18 04:00 10/18/18 06:58 10/18/18 06:58 10/18/18 07:47 Period Temp Pulse Resp BP Sys/Levin Pulse Ox Last 24 Hr 97.0 F-98.6 F 68-75 16-24 85-106/47-67 91-99 Intake and Output 10/17/18 10/18/18 10/18/18 21:59 05:59 13:59 Intake Total 340 600 Output Total 500 1500 Balance -160 -900 Weight 229 lb 6 oz Intake & Output: Intake & Output 10/17/18 10/18/18 10/18/18 21:59 05:59 13:59 Intake Total 340 600 Output Total 500 1500 Balance -160 -900 Weight 229 lb 6 oz Intake: Oral 340 600 Output: Urine Catheter Amount 500 1500 Other: Meal Dinner Breakfast Percent of Meal Consumed 100% 100% Feeding Ability Independent Urine Appearance Clear Uretheral (Roque) Clear Urine Color Bright Yellow Uretheral (Roque) Bright Yellow Urine Odor Normal General appearance: no acute distress Exam: Nonlabored breathing Nondistended abdomen No anxiety Resting comfortably Telemetry A. fib Medical - PN: Obj Da - Labs CBC & Chem 7: 10/18/18 03:55 10/18/18 03:55 Labs: Abnormal Lab Results 10/18/18 10/18/18 10/17/18 03:55 03:55 03:45 RBC 4.18 L Hgb 13.4 L Hct RDW 14.6 H Eos % (Auto) Lymph # (Auto) Lymphocytes % 13 L Monocytes % (Manual) 13 H Potassium Chloride 89 L Carbon Dioxide 33 H BUN 46 H Creatinine 1.5 H Glucose Uric Acid 10.8 H Total Bilirubin 1.2 H Direct Bilirubin 0.5 H GGT 101 H Alkaline Phosphatase 219 H Lactate Dehydrogenase 324 H NT-Pro-B Natriuret Pep 8027.0 H Albumin 2.7 L Globulin 4.3 H Albumin/Globulin Ratio 0.6 L 10/17/18 10/16/18 10/16/18 03:45 03:50 03:50 RBC 3.94 L Hgb 12.6 L Hct 38.7 L RDW 14.7 H Eos % (Auto) 10.2 H Lymph # (Auto) 1.1 L Lymphocytes % Monocytes % (Manual) Potassium 3.0 L Chloride 93 L 87 L Carbon Dioxide 33 H 37 H BUN 34 H 39 H Creatinine Glucose 110 H Uric Acid 10.0 H 10.9 H Total Bilirubin 1.4 H 1.4 H Direct Bilirubin 0.5 H 0.6 H GGT 99 H 107 H Alkaline Phosphatase 217 H 226 H Lactate Dehydrogenase 277 H NT-Pro-B Natriuret Pep Albumin 2.8 L 2.9 L Globulin 3.9 H 4.3 H Albumin/Globulin Ratio 0.7 L 0.7 L Meds: Medications Acetaminophen (Tylenol) 650 mg PO Q6HP PRN PRN Reason: PAIN/FEVER > 101 Albuterol/Ipratropium (Duoneb) 3 ml NEB Q4HRT PRN PRN Reason: Shortness Of Breath Or Wheezing Allopurinol (Zyloprim) 100 mg PO MoWeFr@0900 COUNT INCLUDES THE [facility] Last Admin: 10/17/18 09:33 Dose: 100 mg Documented by: Carvedilol (Coreg) 3.125 mg PO BIDCC COUNT INCLUDES THE [facility] Last Admin: 10/18/18 08:13 Dose: 3.125 mg Documented by: Docusate Sodium (Colace) 100 mg PO BIDP PRN PRN Reason: Constipation Furosemide (Lasix) 80 mg IV BIDD COUNT INCLUDES THE [facility] Last Admin: 10/18/18 08:14 Dose: 80 mg Documented by: Iron Carb/Multivit/Hyder/Folic Acid (Multivitamin W/Minerals) 1 tab PO DAILY COUNT INCLUDES THE [facility] Last Admin: 10/18/18 08:13 Dose: 1 tab Documented by: Metolazone (Zaroxolyn) 2.5 mg PO BID@0730,1530 COUNT INCLUDES THE [facility] Last Admin: 10/18/18 07:43 Dose: 2.5 mg Documented by: Naloxone HCl (Narcan) 0.1 mg IV Q2MIN PRN PRN Reason: Opiate Reversal Nystatin (Nystatin Crm) 0 dose TOPICAL BIDP PRN PRN Reason: Rash Ondansetron HCl (Zofran) 4 mg IV Q4HP PRN PRN Reason: Nausea And Vomiting Oxycodone/Acetaminophen (Percocet 5-325 Mg) 1 tab PO Q4HP PRN PRN Reason: Pain Level >5 Last Admin: 10/18/18 08:27 Dose: 1 tab Documented by: Rivaroxaban (Xarelto) 20 mg PO DAILY COUNT INCLUDES THE [facility] Last Admin: 10/18/18 08:14 Dose: 20 mg Documented by: Sodium Chloride (Saline Flush) 10 ml IV Q8 COUNT INCLUDES THE [facility] Last Admin: 10/18/18 05:53 Dose: 10 ml Documented by: Tramadol HCl (Ultram) 50 mg PO BIDP PRN PRN Reason: Pain Medical - PN: A/P - Time Spent With Patient Total time spent is greater than 50% in coordination of care (as documented) at patient's floor/unit and/or counseling patient: 25 - 35 minutes (1) CHF exacerbation Status: Acute Assessment and plan: * Acute congestive heart failure, combined systolic and diastolic-clinically improving. Continue diuresis-Pt last echo done 07/27, at [facility] shows mildly dilated left ventricle, 30-35% ejection fraction, regional wall motion abnormalities, and grade 3 diastolic dysfunction, On 10/15 developing contraction alkalosis, improved after 2 doses of Diamox * Acute kidney injury-secondary to diuresis. Creatinine 1.5. Low diuretic dose. * Abnormal liver enzymes-ultrasound unremarkable. Suspect this is secondary to passive congestion/CHF * Pneumonia- -Patient had a fever, although there is no white count and pro- calcitonin was negative. Blood cultures at admission are without growth. Started on broad-spectrum antibiotics at admission. Patient has temperature up to 99.6, but no fever. Cultures without growth. Discontinued antibiotics, monitor, remains afebrile on 10/16 * Hypokalemia- resolved with replacement * Atrial fibrillation-Rate reasonably controlled at this time, on anticoagulation with Xarelto, beta-blockers Coreg resumed * Gout-Resume allopurinol * Hypertension-Blood pressure improved, back on carvedilol. * OT/PT/ST rehab * DVT on Xarelto * Full code, no family, has friend John, who lives with him, should he be on the machine for long period, then his friend to decide when to pull the plug. Plan * Continue nutrition support * Lower diuretic dose * monitor renal function * Aggressive PT OT * Pre-existing medical condition management as above Current Visit: Yes Medical - PN: Qual - Stroke Symptom Onset Unknown: No - VTE Deep Vein Thrombosis/Pulmonary Embolism Present on Admission: No
[2018-10-18] MEDS: FUROSEMIDE 20 MG/2 ML VIAL IV SCH (17:16)
[2018-10-19] MEDS: oxyCODONE/APAP 5/325MG TABLET PO PRN (00:59)
[2018-10-19 04:55] LABS: Mean Corpuscular HGB Conc 32.8 g/dL (31.0-36.0); Platelet Count 198 K/mcL (140-440); RBC 4.02 M/mcL (4.50-5.90); Red Cell Distribution Width 14.3 % (11.5-14.5)
[2018-10-19 05:08] LABS: ALT/SGPT 15 U/l (0-40); Albumin/Globulin Ratio 0.7 (1.0-2.3); Alkaline Phosphatase 223 U/L (39-117); Bilirubin,Direct 0.7 mg/dL (0.0-0.3); Blood Urea Nitrogen 46 mg/dl (8-23); Gamma Glutamyl Transpeptidase 103 U/L (8-61); Uric Acid 11.1 mg/dL (2.5-8.0)
[2018-10-19] MEDS ORDERED: POTASSIUM CHLORIDE 20 MEQ TABLET PO STA (05:19)
[2018-10-19] MEDS ORDERED: POTASSIUM CHLORIDE 20 MEQ TABLET PO ONE ×2 (05:27→08:30)
[2018-10-19] MEDS: 0.9 % SODIUM CHLORIDE 10 ML SYRINGE IV SCH ×3 (05:44→21:34)
[2018-10-19 06:30] LABS: Basophils % (Manual) 1 % (0-2); Eosinophils % (Manual) 7 % (0-7); Lymphocytes % 15 % (15-49); Monocytes % (Manual) 15 % (1-12); Platelet Estimate NORMAL (NORMAL); RBC Morphology NORMAL (NORMAL); Segmented Neutrophils % 59 % (38-78)
[2018-10-19] MEDS: METOLAZONE 2.5 MG TABLET PO SCH ×2 (07:29→17:17)
[2018-10-19] MEDS ORDERED: POTASSIUM CHLORIDE 20 MEQ TABLET PO SCH (08:00)
[2018-10-19] MEDS: CARVEDILOL 3.125 MG TABLET PO SCH ×2 (08:27→17:16)
[2018-10-19] MEDS: FUROSEMIDE 20 MG/2 ML VIAL IV SCH ×2 (08:27→17:17)
[2018-10-19] MEDS: MULTIVIT,THER IRON,CA,FA & MIN 1 TABLET PO SCH (08:27)
[2018-10-19] MEDS: RIVAROXABAN 20 MG TABLET PO SCH (08:27)
--- NOTE | 2018-10-19 11:48 | Internal Med Progress Note ---
Medical - PN: Subj Patient information: Note initiated : 10/19/18 at 11:45 am Service Date, if different from initiated Date: [] Patient: Liz Bland a 73 y/o M admitted on 10/12/18 for Shortness of breath. Chief Complaint: [] Interval history: Mr. Bland is a 73 year old M with multiple medical issues, CHF, presents to the ER today for evaluation of shortness of breath. The patient is a resident of [facility], notes that he has been feeling short of breath for the last 2-3 weeks. He was discharged from [facility] 6 weeks ago when he was admitted with diagnosis of possible pneumonia and congestive heart failure. The patient notes for the last 3 weeks has been getting progressively short of breath, difficult to do minimal ambulation, and increased swelling in his lower extremity. He has been having cough which is dry. He denies any other complaints. He denies any palpitations denies any chest pain dizziness, denies any headache changes in vision has chronic loss of vision, denies any changing in hearing difficulty in swallowing, denies any nausea abdominal pain diarrhea c onstipation. Denies any new joint pains or skin rashes. Denies any psychiatric complaints. The patient on presentation to the ER had a low-grade temperature of 99.5, blood pressure 117/80, respirations 18 saturating 92% on 2-3 L of oxygen. EKG showed atrial fibrillation wide QRS complex left axis deviation. No old EKG to compare. Chest x-ray shows severe congestive heart failure Labs show WBC count of 5.7 hemoglobin 14 platelets 172, sodium 135 potassium 3.2 bicarbonate 35 creatinine 1.2 bilirubin 1.7, BNP elevated at 6715 troponin is negative Patient is being admitted to the hospital for further management 10/13 Pt seen examined, no acute overnight issues, tolerating po diet well, sitting in chair, reports breathing better, but not back to baseline, still weak and tired. / Pt seen examined, feels fatigued, but no other complaints or concerns still has low grade temp otherwise no issues neg 7340 since admission, still has significant lower extremity edema K low, replace 2/6 Seem to be more short of breath this morning. Continues to diuresis. ABG shows metabolic alkalosis, partially compensated. Serum bicarbonate up to 40. Still very weak, still with lower extremity edema. MAXIMUM TEMPERATURE 99.6, but no other symptoms of infection. Some blood noted with bowel movement today, has some raw perirectal areas 10/16 Tired today. Received acetazolamide yesterday afternoon and this morning, serum bicarbonate is improved. Still some dyspnea. Temperature is remaining normal off antibiotics. Liver enzymes have been elevated, ultrasound obtained today. 10/17 Feeling stronger today, slept pretty well last night. Is up in chair for a while. Less dyspnea with exertion. Still significant lower extremity edema. 10/18-patient doing a lot better. Improved diuresing well. No overnight events, telemetry A. fib with left bundle. Ongoing physical therapy focusing on strengthening. Continue nutrition support 10/19-patient doing well. Potassium 2.8. Continue 100 mg potassium replacement. Creatinine down to 1.3. Lasix dose lowered to 20 twice daily. Continue anticoagulation. Diuresed over 20 pounds net negative fluid balance - Constitutional Vitals: Vital Signs Temp Pulse Resp BP Pulse Ox 98.9 F 73 24 H 93/48 94 10/19/18 11:20 10/18/18 19:35 10/19/18 11:20 10/19/18 11:20 10/19/18 11:20 Period Temp Pulse Resp BP Sys/Levin Pulse Ox Last 24 Hr 97.5 F-99.3 F 73 20-24 81-114/41-78 85-99 Intake and Output 10/18/18 10/19/18 10/19/18 21:59 05:59 13:59 Intake Total 820 420 340 Output Total 300 1999 900 Balance 520 -1580 -560 Weight 221 lb Intake & Output: Intake & Output 10/18/18 10/19/18 10/19/18 21:59 05:59 13:59 Intake Total 820 420 340 Output Total 300 1999 900 Balance 520 -1580 -560 Weight 221 lb Intake: Oral 820 420 340 Output: Urine Catheter Amount 300 2000 900 Other: Meal Dinner Breakfast Percent of Meal Consumed 100% 100% Feeding Ability Independent Urine Appearance Clear Uretheral (Roque) Clear Urine Color Dark Yellow Uretheral (Roque) Bright Yellow Dark Yellow Urine Odor Normal Stool Size Small Small Stool Color Brown Brown Stool Consistency Soft Formed Formed # Bowel Movements 1 1 General appearance: no acute distress Exam: Resting comfortably non labored breathing Roque is draining clear urine No anxiety Medical - PN: Obj Da - Labs CBC & Chem 7: 10/20/18 04:00 10/20/18 04:00 Labs: Abnormal Lab Results 10/19/18 10/19/18 10/18/18 04:00 04:00 03:55 RBC 4.02 L 4.18 L Hgb 12.8 L 13.4 L Hct 38.9 L RDW 14.6 H Lymphocytes % 13 L Monocytes % (Manual) 15 H 13 H Reactive Lymphocytes 3 H Potassium 2.8 L* Chloride 88 L Carbon Dioxide 38 H BUN 46 H Creatinine 1.3 H Uric Acid 11.1 H Total Bilirubin 1.4 H Direct Bilirubin 0.7 H GGT 103 H Alkaline Phosphatase 223 H Lactate Dehydrogenase NT-Pro-B Natriuret Pep Albumin 3.0 L Globulin 4.1 H Albumin/Globulin Ratio 0.7 L 10/18/18 10/17/18 10/17/18 03:55 03:45 03:45 RBC Hgb Hct RDW Lymphocytes % Monocytes % (Manual) Reactive Lymphocytes Potassium Chloride 89 L 93 L Carbon Dioxide 33 H 33 H BUN 46 H 34 H Creatinine 1.5 H Uric Acid 10.8 H 10.0 H Total Bilirubin 1.2 H 1.4 H Direct Bilirubin 0.5 H 0.5 H GGT 101 H 99 H Alkaline Phosphatase 219 H 217 H Lactate Dehydrogenase 324 H NT-Pro-B Natriuret Pep 8027.0 H Albumin 2.7 L 2.8 L Globulin 4.3 H 3.9 H Albumin/Globulin Ratio 0.6 L 0.7 L Meds: Medications Acetaminophen (Tylenol) 650 mg PO Q6HP PRN PRN Reason: PAIN/FEVER > 101 Albuterol/Ipratropium (Duoneb) 3 ml NEB Q4HRT PRN PRN Reason: Shortness Of Breath Or Wheezing Allopurinol (Zyloprim) 100 mg PO MoWeFr@0900 [facility] Last Admin: 10/17/18 09:33 Dose: 100 mg Documented by: Carvedilol (Coreg) 3.125 mg PO BIDCC [facility] Last Admin: 10/19/18 08:27 Dose: 3.125 mg Documented by: Docusate Sodium (Colace) 100 mg PO BIDP PRN PRN Reason: Constipation Furosemide (Lasix) 20 mg IV BIDD [facility] Last Admin: 10/19/18 08:27 Dose: 20 mg Documented by: Iron Carb/Multivit/Candler/Folic Acid (Multivitamin W/Minerals) 1 tab PO DAILY [facility] Last Admin: 10/19/18 08:27 Dose: 1 tab Documented by: Metolazone (Zaroxolyn) 2.5 mg PO BID@0730,1530 [facility] Last Admin: 10/19/18 07:29 Dose: 2.5 mg Documented by: Naloxone HCl (Narcan) 0.1 mg IV Q2MIN PRN PRN Reason: Opiate Reversal Nystatin (Nystatin Crm) 0 dose TOPICAL BIDP PRN PRN Reason: Rash Ondansetron HCl (Zofran) 4 mg IV Q4HP PRN PRN Reason: Nausea And Vomiting Oxycodone/Acetaminophen (Percocet 5-325 Mg) 1 tab PO Q4HP PRN PRN Reason: Pain Level >5 Last Admin: 10/19/18 00:59 Dose: 1 tab Documented by: Rivaroxaban (Xarelto) 20 mg PO DAILY [facility] Last Admin: 10/19/18 08:27 Dose: 20 mg Documented by: Sodium Chloride (Saline Flush) 10 ml IV Q8 [facility] Last Admin: 10/19/18 05:44 Dose: 10 ml Documented by: Tramadol HCl (Ultram) 50 mg PO BIDP PRN PRN Reason: Pain Medical - PN: A/P - Time Spent With Patient Total time spent is greater than 50% in coordination of care (as documented) at patient's floor/unit and/or counseling patient: 25 - 35 minutes (1) CHF exacerbation Status: Acute Assessment and plan: * Acute congestive heart failure, combined systolic and diastolic-clinically improving. Continue diuresis-Pt last echo done 07/27, at [facility] shows mildly dilated left ventricle, 30-35% ejection fraction, regional wall motion abnormalities, and grade 3 diastolic dysfunction, On 10/15 developing contraction alkalosis, improved after 2 doses of Diamox * Acute kidney injury-secondary to diuresis. Creatinine 1.5. Low diuretic dose. * Abnormal liver enzymes-ultrasound unremarkable. Suspect this is secondary to passive congestion/CHF * Hypokalemia 2.8 replace 100 mg potassium * Pneumonia- -Patient had a fever, although there is no white count and pro- calcitonin was negative. Blood cultures at admission are without growth. Started on broad-spectrum antibiotics at admission. Patient has temperature up to 99.6, but no fever. Cultures without growth. Discontinued antibiotics, monitor, remains afebrile on 10/16 * Atrial fibrillation-Rate reasonably controlled at this time, on anticoagula tion with Xarelto, beta-blockers Coreg resumed * Gout-Resume allopurinol * Hypertension-Blood pressure improved, back on carvedilol. * OT/PT/ST rehab * DVT on Xarelto * Full code, no family, has friend John, who lives with him, should he be on the machine for long period, then his friend to decide when to pull the plug. Plan * Continue nutrition support * Lower diuretic dose * 100 meq potassium replacement * monitor renal function * Aggressive PT OT * Pre-existing medical condition management as above Current Visit: Yes Medical - PN: Qual - Stroke Symptom Onset Unknown: No - VTE Deep Vein Thrombosis/Pulmonary Embolism Present on Admission: No
[2018-10-19 13:07] LABS: Blood Urea Nitrogen 45 mg/dl (8-23)
[2018-10-20] MEDS: oxyCODONE/APAP 5/325MG TABLET PO PRN (05:06)
[2018-10-20] MEDS: 0.9 % SODIUM CHLORIDE 10 ML SYRINGE IV SCH (05:08)
[2018-10-20 05:55] LABS: Mean Cell Volume 96.6 fL (80.0-100.0); Mean Corpuscular HGB Conc 32.7 g/dL (31.0-36.0); Platelet Count 202 K/mcL (140-440); RBC 3.92 M/mcL (4.50-5.90); Red Cell Distribution Width 14.3 % (11.5-14.5)
[2018-10-20 06:47] LABS: Band Neutrophils % 1 % (0-10); Eosinophils % (Manual) 4 % (0-7); Lymphocytes % 24 % (15-49); Monocytes % (Manual) 18 % (1-12); Platelet Estimate NORMAL (NORMAL); RBC Morphology NORMAL (NORMAL); Segmented Neutrophils % 52 % (38-78)
[2018-10-20 06:59] LABS: ALT/SGPT 15 U/l (0-40); Albumin 2.9 gm/dL (3.2-5.2); Albumin/Globulin Ratio 0.7 (1.0-2.3); Alkaline Phosphatase 219 U/L (39-117); Bilirubin,Direct 0.8 mg/dL (0.0-0.3); Blood Urea Nitrogen 41 mg/dl (8-23); Gamma Glutamyl Transpeptidase 108 U/L (8-61); Uric Acid 10.7 mg/dL (2.5-8.0)
[2018-10-20] MEDS: METOLAZONE 2.5 MG TABLET PO SCH (07:30)
[2018-10-20] MEDS ORDERED: POTASSIUM CHLORIDE 20 MEQ/15 ML ML PO SCH (08:00)
[2018-10-20] MEDS: FUROSEMIDE 20 MG/2 ML VIAL IV SCH (08:15)
[2018-10-20] MEDS: ALLOPURINOL 100 MG TABLET PO SCH (08:16)
[2018-10-20] MEDS: RIVAROXABAN 20 MG TABLET PO SCH (08:16)
[2018-10-20] MEDS: CARVEDILOL 3.125 MG TABLET PO SCH (08:16)
[2018-10-20] MEDS: MULTIVIT,THER IRON,CA,FA & MIN 1 TABLET PO SCH (08:16)
--- NOTE | 2018-10-20 10:11 | Discharge Summary ---
Medical - DS: Prov Patient information: Note initiated : 10/20/18 at 10:09 am Service Date, if different from initiated Date: [] Patient: Liz Bland 73 y/o M admitted on 10/12/18 for Shortness of breath. Chief Complaint: [] Date of admission: 10/12/18 14:05 Discharge date: 10/20/18 Primary care physician: Jordan Martin Consults: 10/12/18 Consult to Physician [CONS] Stat Comment: Consulting Provider: Chris Mar Reason For Exam: Physician to Consult Medical - DS: Meds - Discharge Medications Prescriptions: Carvedilol [Coreg] 3.125 mg PO BID #30 tab Furosemide [Lasix] 80 mg PO BID #30 tab Active and Home Medications: Home Medications Acetaminophen [Tylenol 8 Hour] 650 mg PO Q4HP PRN 10/12/18 [History Confirmed 0 10/12/18 Last Taken Unknown] Allopurinol [Zyloprim] 100 mg PO .COMPLEX 10/12/18 [History Confirmed 10/12/18 Last Taken Unknown] Bisacodyl [Dulcolax] 10 mg [place] DAILYP PRN 10/12/18 [History Confirmed 10/12/18 Last Taken Unknown] Colchicine [Colcrys] 0.6 mg PO PRN PRN 10/12/18 [History Confirmed 10/12/18 Last Taken Unknown] Magnesium Hydroxide [Milk of Magnesia] 400 mg PO PRN PRN 10/12/18 [History Conf irmed 10/12/18 Last Taken Unknown] Metolazone [Zaroxolyn] 2.5 mg PO .COMPLEX 10/12/18 [History Confirmed 10/12/18 Last Taken Unknown] Multivitamin [One Daily Essential] 1 each PO DAILY 10/12/18 [History Confirmed 10/12/18 Last Taken Unknown] Na Phos,M-B/Na Phos,Di-Ba [Fleets Adult] 1 dose [place] DAILYP PRN 10/12/18 [History Confirmed 10/12/18 Last Taken Unknown] Nystatin 15 gm TP BID 10/12/18 [History Confirmed 10/12/18 Last Taken Unknown] [place]-3 Fatty Acids [Super Comfrey-3] 1,000 mg PO Q48H 10/12/18 [History Confirmed 10/12/18 Last Taken Unknown] Rivaroxaban [Xarelto] 20 mg PO DAILY 10/12/18 [History Confirmed 10/12/18 Last Taken Unknown] traMADol [Ultram] 50 mg PO BID PRN 10/12/18 [History Confirmed 10/12/18 Last Taken Unknown] Carvedilol [Coreg] 3.125 mg PO BID #30 tab 10/20/18 [Rx Last Taken Unknown] Furosemide [Lasix] 80 mg PO BID #30 tab 10/20/18 [Rx Last Taken Unknown] Medical - DS: Hosp Hospital course: Discharge diagnosis * Acute congestive heart failure, combined systolic and diastolic-clinically resolved continue diuresis with 80 mg twice daily Lasix/Coreg-Pt last echo done 07/27 mildly dilated left ventricle, 30-35% ejection fraction, regional wall motion abnormalities, and grade 3 diastolic dysfunction * Acute kidney injury-secondary to diuresis. Creatinine 1.5->1.2. * Abnormal liver enzymes-ultrasound reveals chronic cholecystitis with cholelithiasis. Outpatient surgery appointment scheduled. * Hypokalemia resolved with replacement. Continue daily 20 mg potassium * Question pneumonia- -Patient had a fever, although there is no white count and pro-calcitonin was negative. Blood cultures at admission are without growth. Started on broad-spectrum antibiotics at admission. Patient has temperature up to 99.6, but no fever. Cultures without growth. Discontinued antibiotics * Atrial fibrillation-Rate controlled at this time, on anticoagulation with Xarelto, continue Coreg * Gout-continue allopurinol * Hypertension-Blood pressure improved, continue carvedilol. * OT/PT/ST rehab * DVT on Xarelto Brief hospital course Mr. Bland is a 73 year old M with multiple medical issues, CHF, presents to the ER today for evaluation of shortness of breath. The patient is a resident of [facility], notes that he has been feeling short of breath for the last 2-3 weeks. He was discharged from [facility] 6 weeks ago when he was admitted with diagnosis of possible pneumonia and congestive heart failure. The patient notes for the last 3 weeks has been getting progressively short of breath, difficult to do minimal ambulation, and increased swelling in his lower extremity. He has been having cough which is dry. He denies any other complaints. He denies any palpitations denies any chest pain dizziness, denies any headache changes in vision has chronic loss of vision, denies any changing in hearing difficulty in swallowing, denies any nausea abdominal pain diarrhea constipation. Denies any new joint pains or skin rashes. Denies any psychiatric complaints. The patient on presentation to the ER had a low-grade temperature of 99.5, blood pressure 117/80, respirations 18 saturating 92% on 2-3 L of oxygen. EKG showed atrial fibrillation wide QRS complex left axis deviation. No old EKG to compare. Chest x-ray shows severe congestive heart failure Labs show WBC count of 5.7 hemoglobin 14 platelets 172, sodium 135 potassium 3.2 bicarbonate 35 creatinine 1.2 bilirubin 1.7, BNP elevated at 6715 troponin is negative Patient is being admitted to the hospital for further management 10/13 Pt seen examined, no acute overnight issues, tolerating po diet well, sitting in chair, reports breathing better, but not back to baseline, still weak and tired. 10/14 Pt seen examined, feels fatigued, but no other complaints or concerns still has low grade temp otherwise no issues neg 7340 since admission, still has significant lower extremity edema K low, replace 2/ Seem to be more short of breath this morning. Continues to diuresis. ABG shows metabolic alkalosis, partially compensated. Serum bicarbonate up to 40. Still very weak, still with lower extremity edema. MAXIMUM TEMPERATURE 99.6, but no other symptoms of infection. Some blood noted with bowel movement today, has some raw perirectal areas 10/16 Tired today. Received acetazolamide yesterday afternoon and this morning, serum bicarbonate is improved. Still some dyspnea. Temperature is remaining normal off antibiotics. Liver enzymes have been elevated, ultrasound obtained today. 10/17 Feeling stronger today, slept pretty well last night. Is up in chair for a while. Less dyspnea with exertion. Still significant lower extremity edema. 10/18-patient doing a lot better. Improved diuresing well. No overnight events, telemetry A. fib with left bundle. Ongoing physical therapy focusing on strengthening. Continue nutrition support 10/19-patient doing well. Potassium 2.8. Continue 100 mg potassium replacement. Creatinine down to 1.3. Lasix dose lowered to 20 twice daily. Continue anticoagulation. Diuresed over 20 pounds net negative fluid balance 10/20-patient doing well. DC Roque's catheter. Continue Lasix 80 mg twice daily. Discharging to SNF with advice to continue aggressive rehab/daily weights/optimizing of CHF management. Recommend follow-up with surgery for chronic cholecystitis evaluation. Discharging with advice as below Discharge diagnosis: . - Time Spent with Patient Total time spent providing and/or coordinating discharge services: Medical - DS: Exam - Constitutional Vitals: Vital Signs Temp Pulse Resp BP BP BP Pulse Ox 10/20/18 07:48 98.5 F 16 95/57 92 10/20/18 04:00 98.5 F 20 104/64 97 10/20/18 00:00 98.8 F 20 90/54 98 10/19/18 21:14 75 93 10/19/18 20:00 98.6 F 20 106/67 93 10/19/18 16:00 98.6 F 20 110/75 96 10/19/18 11:20 98.9 F 24 H 93/48 94 Intake and Output 10/19/18 10/20/18 10/20/18 21:59 05:59 13:59 Intake Total 830 Output Total 450 1125 Balance -450 -295 Intake: Oral 830 Output: Urine Catheter Amount 450 1125 Other: Urine Appearance Clear Uretheral (Roque) Clear Urine Color Dark Yara Dark Yellow Uretheral (Roque) Dark Yellow Urine Odor Normal Stool Size Large Stool Color Brown Stool Consistency Formed # Bowel Movements 1 Weight 221 lb 8 oz Medical - DS: Data Labs on day of discharge: Labs from last 24 hours 10/20/18 10/20/18 10/19/18 04:00 04:00 11:54 WBC 6.5 RBC 3.92 L Hgb 12.4 L Hct 37.9 L MCV 96.6 MCH 31.6 MCHC 32.7 RDW 14.3 Plt Count 202 MPV 8.2 Total Counted 100 Seg Neutrophils % 52 Band Neutrophils % 1 Lymphocytes % 24 Monocytes % (Manual) 18 H Eosinophils % (Manual) 4 Reactive Lymphocytes 1 Platelet Estimate Normal RBC Morphology Normal Sodium 133 130 L Potassium 3.2 L 3.7 Chloride 87 L 86 L Carbon Dioxide 39 H 37 H Anion Gap 7.0 L 7.0 L BUN 41 H 45 H Creatinine 1.2 1.2 GFR Calculation 59 59 Glucose 86 107 H Uric Acid 10.7 H Calcium 8.9 8.8 Phosphorus 2.7 Magnesium 2.3 Total Bilirubin 1.6 H Direct Bilirubin 0.8 H GGT 108 H AST 30 ALT 15 Alkaline Phosphatase 219 H Lactate Dehydrogenase 258 H Total Protein 7.0 Albumin 2.9 L Globulin 4.1 H Albumin/Globulin Ratio 0.7 L Triglycerides 44 Medical - DS: A/P - Patient/Caregiver Discharge Instructions Activity: as per physical therapy, increase activity as tolerated Diet: Regular Diet Additional Instructions: Follow-up PCP in 5 days F/u surgery in 1 week for evaluation of chronic cholecystitis on gallbladder ultrasound(no acute symptoms) Follow-up urology if evidence of urinary retention. May straight cath if required Continue anticoagulation on rivaroxaban I recommend SNF physician to check CBC BMP UA as a posthospital follow-up in 1 week. Continue Lasix twice daily Coreg 3.125 twice daily Continue aggressive bowel regimen to prevent constipation Continue fall precautions daily weights measurements and take additional 80 mg Lasix for 3 days if weight gain over 4 pounds over baseline or worsening shortness of breath and call primary care physician if inadequate response to Lasix Continue aggressive PT OT evaluation and treatment at SNF. ST eval and treatment if indicated All meals on chair sitting upright at 90 degrees to prevent aspiration Return to ER if worsening fever chills shortness of breath Continue diet and activity as advised Discussed importance of medication adherence Please review medication list with patient prior to discharge Please schedule follow-up with PCP/Providers prior to discharge and provide printouts Prescriptions: Carvedilol [Coreg] 3.125 mg PO BID #30 tab Furosemide [Lasix] 80 mg PO BID #30 tab Potassium Chloride 20 meq PO DAILY 30 Days #60 ml - Follow up Plan Follow up with: Jordan Martin MD [Primary Care Provider] - Disposition: [facility] Prognosis: Fair Rehab Potential: Fair I certify that the patient requires SNF services: Yes Overall status at discharge: patient is progressing back to baseline Medical - DS: Qual - VTE Deep Vein Thrombosis/Pulmonary Embolism Present on Admission: No
== END 2018-10-20 13:40 | DRG 291 ==
LOC: ED 10:24 → ICU 14:05
PROVIDERS: ADMIT Internal Medicine; ATTEND Internal Medicine

== ENCOUNTER 2018-12-18 15:22 | Inpatient (IN) ==
[2018-12-18] MEDS ORDERED: IPRATROPIUM/ALBUTEROL 3 ML AMPUL.NEB NEB ONE (16:07)
--- NOTE | 2018-12-18 16:10 | Emergency Department Note ---
SOB HPI - General Source: patient Mode of arrival: ambulatory Limitations: no limitations - History of Present Illness Treatment prior to arrival: none <Mariah Campuzano - Last Filed: 12/18/18 16:08> <Pa Senior - Last Filed: 12/18/18 17:10> - General Source: patient, EMS Mode of arrival: EMS Limitations: physical limitation - History of Present Illness MD Complaint: shortness of breath Onset (ago): day(s) (2) Context: recent illness Severity: severe Consistency/Duration: constant Improves with: nothing Worsens with: lying flat, exertion, movement Known history of: congestive heart failure, recurrent pneumonia Associated symptoms: Reports: wheezing. Denies: chest pain, fever, cough Treatment prior to arrival: oxygen - Related Data Home oxygen amount: none <Tara Dave - Last Filed: 12/18/18 18:10> - General Chief Complaint: Shortness of Breath/Dyspnea Stated Complaint: Wheezing Time Seen by Provider: 12/18/18 15:31 - History of Present Illness 73-year-old male presents with shortness of breath. Onset 2 days ago but worse over the last 12 hours. Is not normally on oxygen at home. Reports he did have pneumonia about 3 months ago. States he lives alone. Medics report the house is absolutely filthy. Patient appears very unkept. His legs have severe edema especially to the feet with skin breakdown and he states this is chronic and has been going on for years. He does not have a primary care provider. Reports he takes care of himself. No sore throat or ear pain. Does have a chronic cough. States he just feels tight and like he cannot catch his breath for the last 12- 24 hours. He denies any pain anywhere but states if he moves he does have body aches all over. (Mariah Campuzano) - Related Data Home Medications Medication Instructions Recorded Confirmed Acetaminophen [Tylenol 8 Hour] 650 mg PO Q4HP PRN 10/12/18 10/12/18 Allopurinol [Zyloprim] 100 mg PO .COMPLEX 10/12/18 10/12/18 Bisacodyl [Dulcolax] 10 mg DE DAILYP PRN 10/12/18 10/12/18 Colchicine [Colcrys] 0.6 mg PO HSP PRN 10/12/18 12/18/18 Magnesium Hydroxide [Milk of 400 mg PO PRN PRN 10/12/18 10/12/18 Magnesia] Metolazone [Zaroxolyn] 2.5 mg PO .COMPLEX 10/12/18 10/12/18 Multivitamin [One Daily Essential] 1 each PO DAILY 10/12/18 10/12/18 Na Phos,M-B/Na Phos,Di-Ba [Fleets 1 dose DE DAILYP PRN 10/12/18 10/12/18 Adult] Nystatin 15 gm TP BID 10/12/18 10/12/18 [place]-3 Fatty Acids [Super [place]-3] 1,000 mg PO Q48H 10/12/18 10/12/18 Rivaroxaban [Xarelto] 20 mg PO DAILY 10/12/18 10/12/18 traMADol [Ultram] 50 mg PO BID PRN 10/12/18 10/12/18 Aspirin [Elias Chewable Aspirin] 81 mg PO DAILY 12/18/18 12/18/18 Furosemide [Lasix] 40 mg PO BID 12/18/18 12/18/18 Lisinopril [Zestril] 10 mg PO HS 12/18/18 12/18/18 Potassium Chloride [Kdur] 20 meq PO DAILY 12/18/18 12/18/18 Simvastatin [Zocor] 20 mg PO DAILY 12/18/18 12/18/18 Previous Rx's Medication Instructions Recorded Carvedilol [Coreg] 3.125 mg PO BID #30 tab 10/20/18 Allergies Allergy/AdvReac Type Severity Reaction Status Date / Time Penicillins AdvReac Mild Rash Verified 12/18/18 15:27 Review of Systems All systems ED: reviewed and negative except as stated. <Mariah Campuzano - Last Filed: 12/18/18 16:08> All systems ED: reviewed and negative except as stated. <Tara Dave - Last Filed: 12/18/18 18:10> Past Medical History - Past Medical History Medical history: Reports: CHF, hypertension - Social History smoking status: Never smoker Alcohol use: Reports: Unknown Drug use: Reports: none <Mariah Campuzano - Last Filed: 12/18/18 16:08> <Tara Dave - Last Filed: 12/18/18 18:10> - Past Medical History [facility] Narrative: All Active Problems CHF exacerbation (Acute) (Tara Dave) Physical Exam Limitations: no limitations General appearance: alert, obese, other (Mildly labored breathing on arrival, unkept) Head: atraumatic, normocephalic, normal inspection Eye: Present: normal appearance. Absent: conjunctival injection ENT: mucous membranes moist Chest: Present: symmetric chest wall rise Respiratory: Present: respiratory distress (Mild on arrival), wheezes (Inspiratory and expiratory wheezing throughout on arrival), accessory muscle use. Absent: stridor Cardiovascular: Present: regular rate, normal heart sounds Extremities: Present: pedal edema (2+ bilaterally) Neurological: Present: alert, oriented X3 Psychiatric: Present: normal affect, normal mood Skin: Present: warm, dry, intact <Mariah Campuzano - Last Filed: 12/18/18 16:08> Limitations: physical limitation General appearance: alert, in distress (pt with SOB talking in 2-3 word sentances) Head: atraumatic, normocephalic Eye: Present: normal appearance, PERRL, EOMI. Absent: conjunctival injection ENT: normal oropharynx, mucous membranes moist, TM's normal bilaterally, normal external ear exam Neck: Present: normal inspection. Absent: tenderness, lymphadenopathy Chest: Present: normal inspection, symmetric chest wall rise. Absent: tenderness Respiratory: Present: respiratory distress (disminished throughout) Cardiovascular: Present: irregular rhythm Abdominal: Present: soft, hypoactive bowel sounds. Absent: distention, tenderness, guarding, rebound, rigidity : Present: normal testicular lie. Absent: testicular tenderness, scrotal swelling, epididymal tenderness Extremities: Present: pedal edema (3+ bilateral). Absent: tenderness Back: Present: normal inspection. Absent: tenderness, CVA tenderness (R), CVA tenderness (L) Neurological: Present: alert, oriented X3 Psychiatric: Present: depressed, tearful. Absent: flat affect Skin: Present: warm, dry, intact, normal color, rash (Pt with bright red erythema in pannus fold along with petichie), cyanosis (around lips). Absent: cool, diaphoretic <Tara Dave - Last Filed: 12/18/18 18:10> Course <Mariah Campuzano - Last Filed: 12/18/18 16:08> Course Narrative: At 1600 report given to Tara Pacheco to assume care. (Mariah Campuzano) Vital Signs Temperature 97.1 F 12/18/18 15:23 Respiratory Rate 34 H 12/18/18 15:23 Blood Pressure 114/74 12/18/18 15:23 Pulse Oximetry (%) 97 12/18/18 15:23 Temperature 97.1 F 12/18/18 15:23 Pulse Rate 83 12/18/18 17:26 Respiratory Rate 21 12/18/18 17:26 Blood Pressure 101/79 12/18/18 17:17 Pulse Oximetry (%) 100 12/18/18 17:26 Shortness of Breath/Dyspnea - Lab Data Result diagrams: 12/18/18 16:03 12/18/18 16:05 <Pa Senior - Last Filed: 12/18/18 17:10> - Lab Data Lab results reviewed: Yes I reviewed the patient's lab results. Result diagrams: 12/18/18 16:38 12/18/18 16:05 - Radiology Data Radiology results reviewed: Yes I reviewed the patient's radiology results. <Tara Dave - Last Filed: 12/18/18 18:10> - [facility] Narrative Medical decision making narrative: Patient WBC 4.7, anemic, lactic acid 1.7, sodium 139, potassium 3.9, BUN 29, creatinine 1.1, GFR 65, total bilirubin 3.4, AST 71, ALT 52, alkaline phos phatase 264, her BNP 85787.0 this is increased since October 2018 when it was 8027.0 consulted and advised to place pt in additional 80mg Lasix due to pt is supposed to be taking 120mg per day at home. Also advised to start pt on Bipap. He would accept patient into ICU. Patient does have yeast infection under his pannus- treated with clotrimazole and then washcloth placed to keep area dry. (Tara Dave) - Lab Data Lab Results 12/18/18 12/18/18 12/18/18 Range/Units 15:50 16:03 16:05 WBC TNP RBC TNP Hgb TNP Hct TNP MCV TNP MCH TNP MCHC TNP RDW TNP Plt Count TNP MPV TNP Gran % (38.0-78.0) % Lymph % (Auto) (15.5-49.0) % [place] % (Auto) (1.0-12.0) % Eos % (Auto) (0.0-7.0) % Baso % (Auto) (0.0-2.0) % Gran # (1.8-8.0) K/mcL Lymph # (Auto) (1.5-4.8) K/mcL [place] # (Auto) (0.1-0.9) K/mcL Eos # (Auto) (0.0-0.7) K/mcL Baso # (Auto) (0.0-0.3) K/mcL VBG Lactic Acid 1.7 (0.5-2.0) mmol/L Sodium (133-145) mmol/L Potassium (3.3-5.1) mmol/L Chloride (96-108) mmol/L Carbon Dioxide (22-30) mmol/L Anion Gap (8-16) BUN (8-23) mg/dl Creatinine (0.7-1.2) mg/dl GFR Calculation Glucose (70-105) mg/dL Calcium (8.6-10.4) mg/dl Total Bilirubin (0.0-1.0) mg/dL AST (0-37) U/l ALT (0-40) U/l Alkaline Phosphatase (39-117) U/L Troponin T (0-0.03) ng/ml NT-Pro-B Natriuret Pep (0-450) pg/ml Total Protein (5.9-8.4) gm/dL Albumin (3.2-5.2) gm/dL Globulin (2.2-3.7) gm/dL Albumin/Globulin Ratio (1.0-2.3) Procalcitonin < 0.10 (<0.10) ng/mL 12/18/18 12/18/18 12/18/18 Range/Units 16:05 16:05 16:38 WBC 4.7 RBC 3.71 L Hgb 12.3 L Hct 37.5 L MCV 101.2 H MCH 33.2 MCHC 32.8 RDW 17.7 H Plt Count 123 L MPV 8.8 Gran % 65.6 (38.0-78.0) % Lymph % (Auto) 20.0 (15.5-49.0) % [place] % (Auto) 12.7 H (1.0-12.0) % Eos % (Auto) 1.3 (0.0-7.0) % Baso % (Auto) 0.4 (0.0-2.0) % Gran # 3.1 (1.8-8.0) K/mcL Lymph # (Auto) 0.9 L (1.5-4.8) K/mcL [place] # (Auto) 0.6 (0.1-0.9) K/mcL Eos # (Auto) 0.1 (0.0-0.7) K/mcL Baso # (Auto) 0 (0.0-0.3) K/mcL VBG Lactic Acid (0.5-2.0) mmol/L Sodium 139 (133-145) mmol/L Potassium 3.9 (3.3-5.1) mmol/L Chloride 100 (96-108) mmol/L Carbon Dioxide 24 (22-30) mmol/L Anion Gap 15.0 (8-16) BUN 29 H (8-23) mg/dl Creatinine 1.1 (0.7-1.2) mg/dl GFR Calculation 65 Glucose 90 (70-105) mg/dL Calcium 8.6 (8.6-10.4) mg/dl Total Bilirubin 3.4 H (0.0-1.0) mg/dL AST 71 H (0-37) U/l ALT 52 H (0-40) U/l Alkaline Phosphatase 264 H (39-117) U/L Troponin T 0.02 (0-0.03) ng/ml NT-Pro-B Natriuret Pep 12388.0 H (0-450) pg/ml Total Protein 7.4 (5.9-8.4) gm/dL Albumin 3.4 (3.2-5.2) gm/dL Globulin 4.0 H (2.2-3.7) gm/dL Albumin/Globulin Ratio 0.9 L (1.0-2.3) Procalcitonin (<0.10) ng/mL - Radiology Data XR chest: FINDINGS: Heart is moderately enlarged. There is congestive heart failure with pulmonary edema. The edema has become worse since 10/14/18. There is no lobar consolidation or evidence of a mass. Cardiomegaly remains stable. There are sternal wires. No pleural effusion is seen. IMPRESSION: Congestive heart failure with pulmonary edema (Tara Dave) Disposition <Mariah Campuzano - Last Filed: 12/18/18 16:08> <Pa Senior - Last Filed: 12/18/18 17:10> Pt seen by CYLINDER DYER/PA only: No ([place]) Time of Disposition: 18:10 <Tara Dave - Last Filed: 12/18/18 18:10> Clinical Impression: CHF exacerbation Qualifiers: Heart failure type: combined systolic and diastolic Qualified Code(s): I50.43 - Acute on chronic combined systolic (congestive) and diastolic (congestive) h eart failure Disposition: Xfer As Inpt ([facility]) Referrals: Jordan Martin MD [Primary Care Provider] -
--- NOTE | 2018-12-18 16:22 | XRay Report ---
HISTORY: Congestive heart failure and wheezing FINDINGS: Heart is moderately enlarged. There is congestive heart failure with pulmonary edema. The edema has become worse since 10/14/18. There is no lobar consolidation or evidence of a mass. Cardiomegaly remains stable. There are sternal wires. No pleural effusion is seen. IMPRESSION: Congestive heart failure with pulmonary edema Interpreted and Authenticated by: Geovanni Goldberg 12/18/18
[2018-12-18] MEDS ORDERED: FUROSEMIDE 20 MG/2 ML VIAL IV ONE (16:58)
[2018-12-18 17:06] LABS: ALT/SGPT 52 U/l (0-40); Albumin 3.4 gm/dL (3.2-5.2); Albumin/Globulin Ratio 0.9 (1.0-2.3); Alkaline Phosphatase 264 U/L (39-117); Blood Urea Nitrogen 29 mg/dl (8-23)
--- NOTE | 2018-12-18 17:11 | Emergency Department Note ---
ED Note Addendum Note Addendum: Patient seen by nurse practitioner Tara as well as Mariah, agree with the workup, assessment and treatment plan.
[2018-12-18 17:19] LABS: Basophils # (Auto) 0 K/mcL (0.0-0.3); Basophils % (Auto) 0.4 % (0.0-2.0); Eosinophils # (Auto) 0.1 K/mcL (0.0-0.7); Eosinophils % (Auto) 1.3 % (0.0-7.0); Granulocytes % (Auto) 65.6 % (38.0-78.0); Lymphocytes # (Auto) 0.9 K/mcL (1.5-4.8); Mean Cell Volume 101.2 fL (80.0-100.0); Mean Corpuscular HGB Conc 32.8 g/dL (31.0-36.0); Monocytes # (Auto) 0.6 K/mcL (0.1-0.9); Monocytes % (Auto) 12.7 % (1.0-12.0); Platelet Count 123 K/mcL (140-440); RBC 3.71 M/mcL (4.50-5.90); Red Cell Distribution Width 17.7 % (11.5-14.5)
[2018-12-18] MEDS ORDERED: FUROSEMIDE 100 MG/10 ML VIAL IV ONE (17:38)
[2018-12-18] MEDS ORDERED: CLOTRIMAZOLE CRM 1% 1 DOSE TUBE TOPICAL ONE (17:56)
[2018-12-18] MEDS ORDERED: FUROSEMIDE 40 MG/4 ML VIAL IV ONE (18:22)
[2018-12-18 18:46] LABS: Appearance,Urine CLEAR; Bacteria,Urine 0 /hpf (0); Bilirubin,Urine NEG (NEG); Color,Urine YELLOW; Glucose,Urine (UA) NEGATIVE (NEG); Leukocyte Esterase,Urine NEG /uL (NEG); Mucus,Urine FEW /hpf (0); Protein,Urine NEG (NEG); Specific Gravity,Urine 1.013 (1.000-1.035); Urine Amorphous Crystals MOD /hpf (0); Urine Blood NEG mg/dL (<0.03); Urine Hyaline Cast 24 /lpf (0-2); Urine RBC 0 /hpf (0-1); Urine Squamous Epithelial Cell 1 /hpf (0-4); Urine WBC < 1 /hpf (0-4); Urine WBC Cast 17 /lpf (0); Urobilinogen,Urine NEG (NEG)
[2018-12-18] MEDS ORDERED: ONDANSETRON 4 MG/2 ML VIAL IV PRN (19:02)
[2018-12-18] MEDS ORDERED: ACETAMINOPHEN 1,000 MG/100 ML BOTTLE IV PRN (19:02)
[2018-12-18] MEDS ORDERED: MAGNESIUM SULFATE 2 GM/50 ML BAG IV PRN (19:02)
[2018-12-18] MEDS ORDERED: POTASSIUM CHLORIDE 20 MEQ PACKET PO PRN (19:02)
[2018-12-18] MEDS: MULTIVIT,THER IRON,CA,FA & MIN 1 TABLET PO SCH (20:44)
[2018-12-18] MEDS: SENNOSIDES/DOCUSATE SODIUM 1 TAB TABLET PO SCH (20:44)
[2018-12-18] MEDS: DOCUSATE SODIUM 100 MG CAPSULE PO SCH (20:44)
--- NOTE | 2018-12-18 21:41 | Internal Med History&Physical ---
Medical - H&P: [facility] Patient information: Note initiated : 12/18/18 at 9:38 pm Service Date, if different from initiated Date: [] Patient: Liz Bland a 73 y/o M admitted on 12/18/18 for Wheezing. Chief Complaint: [] Chief complaint: SOb History of present illness: Mr. Bland is a 73 year old M with history of NYHA class III systolic heart failure with EF 30% and recent hospitalization in October and was transferred to snf home. Patient was discharged from snf home 5 days ago and has since gotten increasingly short of breath along with orthopnea and increasing lower extremity swelling. Over the last 24 hours patient has not been able to get out of bed or function due to profound dyspnea. He lives alone and apparently has been sleeping in a camper outside of his home. With worsening symptoms he presents to the ER. Initial workup was consistent with acute CHF exacerbation on chest imaging. Patient was started on diuretics and subsequently hospitalist service was consulted. At the time of evaluation patient is alert and oriented remarkably short of breath unable to talk in full sentences. Denies associated fever cough productive sputum chills or chest palpitation. Endorses to using NSAIDs for generalized body pain over the last month. He denies excessive salt diet. He further denies missing his regular medications. Review of systems A 10 point review systems was performed and is negative except for ones discussed about Medical - H&P: PMH Medical history: Coronary artery disease Hypertension Atrial fibrillation Congestive heart failure EF 30% Gout Polyneuropathy Pulmonary hypertension Morbid obesity Aortic valve replacement Surgical history: Aortic valve replacement Coronary artery bypass graft Family history: reviewed and not pertinent Social history: Presently living at home, denies any smoking alcohol or recreational drug use Medical - H&P: Meds Home Medications Medication Instructions Recorded Confirmed Type Acetaminophen [Tylenol 8 Hour] 650 mg PO Q4HP PRN 10/12/18 10/12/18 History Allopurinol [Zyloprim] 100 mg PO .COMPLEX 10/12/18 10/12/18 History Bisacodyl [Dulcolax] 10 mg [place] DAILYP PRN 10/12/18 10/12/18 History Colchicine [Colcrys] 0.6 mg PO HSP PRN 10/12/18 12/18/18 History Magnesium Hydroxide [Milk of 400 mg PO PRN PRN 10/12/18 10/12/18 History Magnesia] Metolazone [Zaroxolyn] 2.5 mg PO .COMPLEX 10/12/18 10/12/18 History Multivitamin [One Daily Essential] 1 each PO DAILY 10/12/18 10/12/18 History Na Phos,M-B/Na Phos,Di-Ba [Fleets 1 dose [place] DAILYP PRN 10/12/18 10/12/18 History Adult] Nystatin 15 gm TP BID 10/12/18 10/12/18 History [place]-3 Fatty Acids [Super [place]-3] 1,000 mg PO Q48H 10/12/18 10/12/18 History Rivaroxaban [Xarelto] 20 mg PO DAILY 10/12/18 10/12/18 History traMADol [Ultram] 50 mg PO BID PRN 10/12/18 10/12/18 History Carvedilol [Coreg] 3.125 mg PO BID #30 tab 10/20/18 12/18/18 Rx Aspirin [Elias Chewable Aspirin] 81 mg PO DAILY 12/18/18 12/18/18 History Furosemide [Lasix] 40 mg PO BID 12/18/18 12/18/18 History Lisinopril [Zestril] 10 mg PO HS 12/18/18 12/18/18 History Potassium Chloride [Kdur] 20 meq PO DAILY 12/18/18 12/18/18 History Simvastatin [Zocor] 20 mg PO DAILY 12/18/18 12/18/18 History Allergies Allergy/AdvReac Type Severity Reaction Status Date / Time Penicillins AdvReac Mild Rash Verified 12/18/18 15:27 Medical - H&P: Exam - Constitutional Vitals: Temp Pulse Resp BP Pulse Ox 97.4 F 70 19 120/76 100 12/18/18 20:13 12/18/18 20:13 12/18/18 20:13 12/18/18 20:13 12/18/18 20:13 General appearance: moderate distress Exam: Alert and oriented Oral cavity dry No ear discharge Head normocephalic noscleral icterus S1 and S2 irregular Diminish breath sounds bases late inspiratory crackles Abdomen soft nontender, minimally distended Lower extremity 2+ pitting edema from mid thigh to the distal foot Skin no suspicious lesion Psych anxious and labored Neuro nonfocal Medical - H&P: Reslt - Labs CBC & Chem 7: 04/12/19 04:19 12/19/18 04:19 Labs: Short CBC 12/18/18 12/18/18 Range/Units 16:03 16:38 WBC TNP 4.7 Hgb TNP 12.3 L Hct TNP 37.5 L Plt Count TNP 123 L BMP 12/18/18 16:05 Sodium 139 Potassium 3.9 Chloride 100 Carbon Dioxide 24 BUN 29 H Creatinine 1.1 Glucose 90 Calcium 8.6 Cardiac Enzymes 12/18/18 Range/Units 16:05 Troponin T 0.02 (0-0.03) ng/ml Liver Function 12/18/18 Range/Units 16:05 Total Bilirubin 3.4 H (0.0-1.0) mg/dL AST 71 H (0-37) U/l ALT 52 H (0-40) U/l Alkaline Phosphatase 264 H (39-117) U/L Albumin 3.4 (3.2-5.2) gm/dL Urine 12/18/18 Range/Units 17:00 Urine Color Yellow Urine Appearance Clear Urine pH 5.0 (5.0-9.0) Ur Specific [place] 1.013 (1.000-1.035) Urine Protein Neg (NEG) mg/dL Urine Glucose (UA) Negative (NEG) mg/dL Medical - H&P: A/P (1) Acute decompensated heart failure Current visit: Yes Status: Acute * Acute decompensated systolic heart failure with pulmonary edema-last EF 30% as of July 2018. Continue aggressive diuresis/noninvasive ventilation/supplemental oxygen. Restart beta chelo/LAKE inhibitor in 24 hours once clinically improved. Repeat Echocardiogram * Acute hypoxic respiratory failure secondary to above- start noninvasive ventilation/diuresis to improve lung compliance. Repeat blood gas * History of hypertension on Coreg/LAKE inhibitor * History of gout continue colchicine/allopurinol * Atrial fibrillation rate controlled, anticoagulation on rivaroxaban * History of CAD status post CABG continue aspirin and statin LAKE inhibitor and beta chelo. * Abnormal liver enzymes-reviewed previous ultrasound - chronic cholecystitis with cholelithiasis. * Prophylaxis-currently on anticoagulation * Full code Plan * Inpatient ICU admit * Initiated Noninvasive ventilation * Repeat chest imaging in 24 hours * Aggressive diuresis * Echocardiogram * Pre-existing medical condition management on home meds Total time spent over 120 minutes on evaluation, treatment planning, management of acute decompensated heart failure with pulmonary edema and hypoxic respir atory failure requiring noninvasive ventilation. This includes 70 minutes spent on history and physical review of prior medical records and remaining 50 minutes critical care time
[2018-12-18] MEDS: FUROSEMIDE 40 MG/4 ML VIAL IV SCH (22:09)
[2018-12-18] MEDS: 0.9 % SODIUM CHLORIDE 10 ML SYRINGE IV SCH (22:10)
[2018-12-19] MEDS: ACETAMINOPHEN 325 MG TABLET PO PRN ×3 (00:50→21:26)
[2018-12-19] MEDS: FUROSEMIDE 40 MG/4 ML VIAL IV SCH ×3 (05:28→21:25)
[2018-12-19] MEDS: 0.9 % SODIUM CHLORIDE 10 ML SYRINGE IV SCH ×3 (05:28→21:27)
[2018-12-19 06:06] LABS: Mean Cell Volume 101.4 fL (80.0-100.0); Platelet Count 116 K/mcL (140-440); RBC 3.38 M/mcL (4.50-5.90); Red Cell Distribution Width 16.9 % (11.5-14.5)
[2018-12-19 06:47] LABS: ALT/SGPT 43 U/l (0-40); Albumin 3.2 gm/dL (3.2-5.2); Albumin/Globulin Ratio 0.9 (1.0-2.3); Alkaline Phosphatase 228 U/L (39-117); Bilirubin,Direct 1.7 mg/dL (0.0-0.3); Blood Urea Nitrogen 29 mg/dl (8-23); Gamma Glutamyl Transpeptidase 112 U/L (8-61); Uric Acid 9.9 mg/dL (2.5-8.0)
[2018-12-19 07:21] LABS: Anisocytosis 1+ (NONE SEEN); Band Neutrophils % 3 % (0-10); Eosinophils % (Manual) 5 % (0-7); Lymphocytes % 8 % (15-49); Macrocytosis 1+ (NONE SEEN); Monocytes % (Manual) 9 % (1-12); Platelet Estimate DECREASED (NORMAL); RBC Morphology ABNORM (NORMAL); Segmented Neutrophils % 75 % (38-78)
[2018-12-19] MEDS: MULTIVIT,THER IRON,CA,FA & MIN 1 TABLET PO SCH (07:39)
[2018-12-19] MEDS: ASPIRIN 81 MG TAB.CHEW PO SCH (07:39)
[2018-12-19] MEDS: POTASSIUM CHLORIDE 20 MEQ TABLET PO SCH (07:39)
[2018-12-19] MEDS: DOCUSATE SODIUM 100 MG CAPSULE PO SCH ×2 (07:39→20:17)
[2018-12-19] MEDS: CARVEDILOL 3.125 MG TABLET PO SCH ×2 (07:39→17:36)
[2018-12-19] MEDS ORDERED: METOLAZONE 2.5 MG TABLET PO SCH (09:00)
[2018-12-19] MEDS ORDERED: SIMVASTATIN 20 MG TABLET PO SCH (09:00)
[2018-12-19] MEDS ORDERED: FUROSEMIDE 40 MG/4 ML VIAL IV SCH (09:00)
--- NOTE | 2018-12-19 09:30 | General Surgery Consult Note ---
History of Present Illness Patient information: Note initiated : 12/19/18 at 9:25 am Service Date, if different from initiated Date: [] Patient: Liz Bland 73 y/o M admitted on 12/18/18 for Wheezing. Chief Complaint: [] Requesting physician: Jatinder Pérez (S[facility] ans[facility] wound care) History of present illness: I saw this patient and reviewed his treatment plan with Shannan RN, ICU and Zo YOUNG[employer]OODanimal care giver nurse. Case discussed with Dr. Pérez, Hospitalist Physician. 73/ M Admitted last evening via ER with acute exacerbation of CHF, Pneumonia with SOB and tachycardia. This is an obese gentleman with multiple co-morbid problems, morbid obesity, poor personal hygiene and past h/o chronic CHF. Recently hospitalized for pneumonia, treated and discharges. He was readmitted emergently due to acute exacerbation of presenting symptoms. I examined his skin lesions at bedside with nurses help. Wound care orders entered. Medications and Allergies Home Medications Medication Instructions Recorded Confirmed Type RX: Acetaminophen [Tylenol 8 Hour] 650 mg PO Q4HP PRN 10/12/18 10/12/18 History RX: Allopurinol [Zyloprim] 100 mg PO .COMPLEX 10/12/18 10/12/18 History RX: Bisacodyl [Dulcolax] 10 mg [place] DAILYP PRN 10/12/18 10/12/18 History RX: Colchicine [Colcrys] 0.6 mg PO HSP PRN 10/12/18 12/18/18 History RX: Magnesium Hydroxide [Milk of 400 mg PO PRN PRN 10/12/18 10/12/18 History Magnesia] RX: Metolazone [Zaroxolyn] 2.5 mg PO .COMPLEX 10/12/18 10/12/18 History RX: Multivitamin [One Daily 1 each PO DAILY 10/12/18 10/12/18 History Essential] RX: Na Phos,M-B/Na Phos,Di-Ba 1 dose [place] DAILYP PRN 10/12/18 10/12/18 History [Fleets Adult] RX: Nystatin 15 gm TP BID 10/12/18 10/12/18 History RX: [place]-3 Fatty Acids [Super 1,000 mg PO Q48H 10/12/18 10/12/18 History [place]-3] RX: Rivaroxaban [Xarelto] 20 mg PO DAILY 10/12/18 10/12/18 History RX: traMADol [Ultram] 50 mg PO BID PRN 10/12/18 10/12/18 History RX: Carvedilol [Coreg] 3.125 mg PO BID #30 tab 10/20/18 12/18/18 Rx Aspirin [Elias Chewable Aspirin] 81 mg PO DAILY 12/18/18 12/18/18 History Lisinopril [Zestril] 10 mg PO HS 12/18/18 12/18/18 History Potassium Chloride [Kdur] 20 meq PO DAILY 12/18/18 12/18/18 History RX: Furosemide [Lasix] 40 mg PO BID 12/18/18 12/18/18 History Simvastatin [Zocor] 20 mg PO DAILY 12/18/18 12/18/18 History Allergies Allergy/AdvReac Type Severity Reaction Status Date / Time Penicillins AdvReac Mild Rash Verified 12/18/18 15:27 Exam Temp Pulse Resp BP Pulse Ox 98.8 F 73 20 105/71 91 12/19/18 07:02 12/19/18 08:03 12/19/18 08:45 12/19/18 08:03 12/19/18 08:03 - General physical appearance well developed, well nourished, other (Poor personal hygiene and ill kempt.) - Eyes PERRL, normal ocular movement - ENT normal pinna, normal nares, normal mucosa, no congestion, poor custodial - Head Head exam IM: Present: atraumatic, normocephalic - Neck no masses, no bruits, no venous distension - Cardiovascular Cardiovascular exam IM: Present: irregular rhythm, tachycardia (Monomorphic PVCs on monitor) - Respiratory normal expansion dullness: bilateral (Diminished air entry lung bases) - Abdomen Abdomen: Present: soft, non tender, bowel sounds - Genitourinary Present: normal penis with no external lesions, testicles non-tender, other (Roque catheter draining concentrated urine. ) - Integumentary Present: other (Extensive fugal rash under pannus skin folds. ) - Neurologic Present: other (Moves all extremities. NO focal neurological deficits. Detailed exam not done. ) - Musculoskeletal Present: other (Bed confined. Pitting edema borh legs and feet. Symmetrical. Onycomycosis toe nails of both feet. ) - Psychiatric Present: other (confused. ) Results - Labs 12/20/18 04:03 12/20/18 04:03 Abnormal lab results 12/18/18 12/18/18 12/18/18 Range/Units 16:05 16:38 17:00 RBC 3.71 L (4.50-5.90) M/mcL Hgb 12.3 L (13.5-16.5) g/dL Hct 37.5 L (41.0-55.0) % MCV 101.2 H (80.0-100.0) fL RDW 17.7 H (11.5-14.5) % Plt Count 123 L (140-440) K/mcL [place] % (Auto) 12.7 H (1.0-12.0) % Lymph # (Auto) 0.9 L (1.5-4.8) K/mcL Lymphocytes % (15-49) % Platelet Estimate (NORMAL) RBC Morphology (NORMAL) Anisocytosis (NONE SEEN) Macrocytosis (NONE SEEN) Potassium (3.3-5.1) mmol/L BUN 29 H (8-23) mg/dl Uric Acid (2.5-8.0) mg/dL Calcium (8.6-10.4) mg/dl Total Bilirubin 3.4 H (0.0-1.0) mg/dL Direct Bilirubin (0.0-0.3) mg/dL GGT (8-61) U/L AST 71 H (0-37) U/l ALT 52 H (0-40) U/l Alkaline Phosphatase 264 H (39-117) U/L NT-Pro-B Natriuret Pep 04467.0 H (0-450) pg/ml Globulin 4.0 H (2.2-3.7) gm/dL Albumin/Globulin Ratio 0.9 L (1.0-2.3) Amorphous Crystals Mod A (0) /hpf Hyaline Casts 24 H (0-2) /lpf WBC Casts 17 H (0) /lpf 12/19/18 12/19/18 Range/Units 04:19 04:19 RBC 3.38 L (4.50-5.90) M/mcL Hgb 11.3 L (13.5-16.5) g/dL Hct 34.3 L (41.0-55.0) % MCV 101.4 H (80.0-100.0) fL RDW 16.9 H (11.5-14.5) % Plt Count 116 L (140-440) K/mcL [place] % (Auto) (1.0-12.0) % Lymph # (Auto) (1.5-4.8) K/mcL Lymphocytes % 8 L (15-49) % Platelet Estimate Decreased A (NORMAL) RBC Morphology Abnorm A (NORMAL) Anisocytosis 1+ A (NONE SEEN) Macrocytosis 1+ A (NONE SEEN) Potassium 3.0 L (3.3-5.1) mmol/L BUN 29 H (8-23) mg/dl Uric Acid 9.9 H (2.5-8.0) mg/dL Calcium 8.1 L (8.6-10.4) mg/dl Total Bilirubin 2.4 H (0.0-1.0) mg/dL Direct Bilirubin 1.7 H (0.0-0.3) mg/dL GGT 112 H (8-61) U/L AST 49 H (0-37) U/l ALT 43 H (0-40) U/l Alkaline Phosphatase 228 H (39-117) U/L NT-Pro-B Natriuret Pep (0-450) pg/ml Globulin (2.2-3.7) gm/dL Albumin/Globulin Ratio 0.9 L (1.0-2.3) Amorphous Crystals (0) /hpf Hyaline Casts (0-2) /lpf WBC Casts (0) /lpf Diabetes panel 12/18/18 12/19/18 Range/Units 16:05 04:19 Sodium 139 141 (133-145) mmol/L Potassium 3.9 3.0 L (3.3-5.1) mmol/L Chloride 100 102 (96-108) mmol/L Carbon Dioxide 24 29 (22-30) mmol/L BUN 29 H 29 H (8-23) mg/dl Creatinine 1.1 1.2 (0.7-1.2) mg/dl Glucose 90 74 (70-105) mg/dL Calcium 8.6 8.1 L (8.6-10.4) mg/dl AST 71 H 49 H (0-37) U/l ALT 52 H 43 H (0-40) U/l Alkaline Phosphatase 264 H 228 H (39-117) U/L Total Protein 7.4 6.8 (5.9-8.4) gm/dL Albumin 3.4 3.2 (3.2-5.2) gm/dL Triglycerides 52 (<150) mg/dl Calcium panel 12/18/18 12/19/18 Range/Units 16:05 04: Calcium 8.6 8.1 L (8.6-10.4) mg/dl Phosphorus 3.5 (2.7-4.5) mg/dL Albumin 3.4 3.2 (3.2-5.2) gm/dL Pituitary panel 12/18/18 12/19/18 Range/Units 16: 04:19 Sodium 139 141 (133-145) mmol/L Potassium 3.9 3.0 L (3.3-5.1) mmol/L Chloride 100 102 (96-108) mmol/L Carbon Dioxide 24 29 (22-30) mmol/L BUN 29 H 29 H (8-23) mg/dl Creatinine 1.1 1.2 (0.7-1.2) mg/dl Glucose 90 74 (70-105) mg/dL Calcium 8.6 8.1 L (8.6-10.4) mg/dl Adrenal panel 12/18/18 12/19/18 Range/Units 16:05 04:19 Sodium 139 141 (133-145) mmol/L Potassium 3.9 3.0 L (3.3-5.1) mmol/L Chloride 100 102 (96-108) mmol/L Carbon Dioxide 24 29 (22-30) mmol/L BUN 29 H 29 H (8-23) mg/dl Creatinine 1.1 1.2 (0.7-1.2) mg/dl Glucose 90 74 (70-105) mg/dL Calcium 8.6 8.1 L (8.6-10.4) mg/dl Total Bilirubin 3.4 H 2.4 H (0.0-1.0) mg/dL AST 71 H 49 H (0-37) U/l ALT 52 H 43 H (0-40) U/l Alkaline Phosphatase 264 H 228 H (39-117) U/L Total Protein 7.4 6.8 (5.9-8.4) gm/dL Albumin 3.4 3.2 (3.2-5.2) gm/dL All other labs normal. Assessment and Plan (1) Dermatitis associated with moisture from urinary incontinence Assessment : MAD Moisture associated dermatitis of skin under skin folds of panniculus and around scrotum and penis. Plan: Local treatment: Chlorhexidine washes, Topical mupirocin ointment at skin break sites and moisturizing lotion Status: Acute Priority: Medium Comment: INTERDRY CLOTH / SHEET UNDER PANNICULUS SKIN FOLDS. (2) Edema of both legs Assessment: Chronic pitting and symmetrical edema of both legs, ankles and feet with onychomycosis of all toe nails, Plan: Clean with chlorhexidene and topical application of moisturizing creme. Status: Chronic Priority: Low (3) Edema of both feet Status: Chronic Priority: Low (4) Edema of both ankles Status: Chronic Priority: Low
[2018-12-19] MEDS: METOLAZONE 2.5 MG TABLET PO SCH (13:14)
[2018-12-19] MEDS: IPRATROPIUM/ALBUTEROL 3 ML AMPUL.NEB NEB PRN ×2 (14:12→20:17)
--- NOTE | 2018-12-19 16:09 | Internal Med Progress Note ---
Medical - PN: Subj Patient information: Note initiated : 12/19/18 at 4:04 pm Service Date, if different from initiated Date: [] Patient: Liz Bland a 73 y/o M admitted on 12/18/18 for Wheezing. Chief Complaint: [] Interval history: Mr. Bland is a 73 year old M with history of NYHA class III systolic heart marlene lure with EF 30% and recent hospitalization [facility]. [facility] and has since gotten increasingly short of breath along with orthopnea and increasing lower extremity swelling. Over the last 24 hours patient has not been able to get out of bed or function due to profound dyspnea. He lives alone and apparently has been sleeping in a camper outside of his home. With worsening symptoms he presents to the ER. Initial workup was consistent with acute CHF exacerbation on chest imaging. Patient was started on diuretics and subsequently hospitalist service was consulted. At the time of evaluation patient is alert and oriented remarkably short of breath unable to talk in full sentences. Denies associated fever cough productive sputum chills or chest palpitation. Endorses to using NSAIDs for generalized body pain over the last month. He denies excessive salt diet. He further denies missing his regular medications. 12/19-patient doing better. Diuresed over 1600 cc. Intermittently noninvasive ventilation. Clinically improving. Able to talk in full sentences. Improved orthopnea. No overnight fever chills nausea vomiting. No other concerns expressed nursing staff. Start cardiac diet and physical therapy. Case management to coordinate SNF transfer on discharge - Constitutional Vitals: Vital Signs Temp Pulse Resp BP Pulse Ox 98.8 F 79 16 119/91 95 12/19/18 11:02 12/19/18 15:11 12/19/18 15:11 12/19/18 15:01 12/19/18 15:11 Period Temp Pulse Resp BP Sys/Levin Pulse Ox Last 24 Hr 97.1 F-98.8 F 49-104 13-28 84-123/57-94 91-100 Intake and Output 12/19/18 12/19/18 12/19/18 05:59 13:59 21:59 Intake Total 750 860 Output Total 1025 490 320 Balance -275 370 -320 Weight 255 lb 8 oz Patient Weight 12/20/18 05:59 Weight 255 lb 8 oz Intake & Output: Intake & Output 12/19/18 12/19/18 12/19/18 05:59 13:59 21:59 Intake Total 750 860 Output Total 1025 490 320 Balance -275 370 -320 Weight 255 lb 8 oz Intake: Oral 750 860 Output: Urine Catheter Amount 1025 490 320 Other: Meal egg salad sandwich Lunch Percent of Meal Consumed 100% 100% Feeding Ability Assist with Tray Set Up Urine Appearance Clear Clear Uretheral (Roque) Clear Clear Clear Urine Color Dark Yellow Dark Yellow Uretheral (Roque) Bright Yellow Pale Straw Urine Odor Strong Uretheral (Roque) Strong General appearance: no acute distress Exam: Unkempt and disheveled Alert and oriented Labored breathing irRegular rhythm Lymphedema improved Medical - PN: Obj Da - Labs CBC & Chem 7: 12/19/18 04:19 12/19/18 04:19 Labs: Abnormal Lab Results 12/19/18 12/19/18 12/18/18 04:19 04:19 17:00 RBC 3.38 L Hgb 11.3 L Hct 34.3 L MCV 101.4 H RDW 16.9 H Plt Count 116 L [place] % (Auto) Lymph # (Auto) Lymphocytes % 8 L Platelet Estimate Decreased A RBC Morphology Abnorm A Anisocytosis 1+ A Macrocytosis 1+ A Potassium 3.0 L BUN 29 H Uric Acid 9.9 H Calcium 8.1 L Total Bilirubin 2.4 H Direct Bilirubin 1.7 H GGT 112 H AST 49 H ALT 43 H Alkaline Phosphatase 228 H NT-Pro-B Natriuret Pep Globulin Albumin/Globulin Ratio 0.9 L Amorphous Crystals Mod A Hyaline Casts 24 H WBC Casts 17 H 12/18/18 12/18/18 16:38 16:05 RBC 3.71 L Hgb 12.3 L Hct 37.5 L MCV 101.2 H RDW 17.7 H Plt Count 123 L [place] % (Auto) 12.7 H Lymph # (Auto) 0.9 L Lymphocytes % Platelet Estimate RBC Morphology Anisocytosis Macrocytosis Potassium BUN 29 H Uric Acid Calcium Total Bilirubin 3.4 H Direct Bilirubin GGT AST 71 H ALT 52 H Alkaline Phosphatase 264 H NT-Pro-B Natriuret Pep 65788.0 H Globulin 4.0 H Albumin/Globulin Ratio 0.9 L Amorphous Crystals Hyaline Casts WBC Casts Meds: Medications Acetaminophen (Tylenol) 650 mg PO Q4-6HP PRN PRN Reason: PAIN/FEVER > 101 Last Admin: 12/19/18 15:16 Dose: 650 mg Documented by: Albuterol/Ipratropium (Duoneb) 3 ml NEB Q4HP PRN PRN Reason: Shortness Of Breath Last Admin: 12/19/18 14:12 Dose: 3 ml Documented by: Aspirin (Aspirin) 81 mg PO DAILY [facility] Last Admin: 12/19/18 07:39 Dose: 81 mg Documented by: [facility] Last Admin: 12/19/18 07:39 Dose: 3.125 mg Documented by: Colchicine (Colcrys) 0.6 mg PO HSP PRN PRN Reason: Pain Docusate Sodium (Colace) 100 mg PO BID [facility] Last Admin: 12/19/18 07:39 Dose: 100 mg Documented by: Furosemide (Lasix) 40 mg IV Q8 [facility] Last Admin: 12/19/18 14:02 Dose: 40 mg Documented by: Magnesium Sulfate (Magnesium Sulfate) 2 gm in 50 mls @ 50 mls/hr IV UD PRN PRN Reason: MG = or < 1.7 Acetaminophen (Ofirmev) 1,000 mg in 100 mls @ 200 mls/hr IV Q6HP PRN PRN Reason: PAIN/FEVER > 101 Iron Carb/Multivit/[place]/Folic Acid (Multivitamin W/Minerals) 1 tab PO DAILY [facility] Last Admin: 12/19/18 07:39 Dose: 1 tab Documented by: Lisinopril (Zestril) 10 mg PO [facility] Metolazone (Zaroxolyn) 2.5 mg PO DAILY@0530 [facility] Last Admin: 12/19/18 13:14 Dose: 2.5 mg Documented by: Ondansetron HCl (Zofran) 4 mg IV Q4-6HP PRN PRN Reason: Nausea And Vomiting Potassium Chloride (Klor-Con) 40 meq PO DAILYP PRN PRN Reason: K+ < 3.5 Last Admin: 12/19/18 07:38 Dose: 40 meq Documented by: Potassium Chlor[facility] (Kdur) [address] [facility] Last Admin: 12/19/18 07:39 Dose: 20 meq Documented by: Senna/Docusate Sodium (Senna Plus Tablet) 1 tab PO HS [facility] Last Admin: 12/18/18 20:44 Dose: 1 tab Documented by: Simvastatin (Zocor) 20 mg PO HS [place] Sodium Chloride (Saline Flush) 10 ml IV Q8 [facility] Last Admin: 12/19/18 14:02 Dose: 10 ml Documented by: Medical - PN: A/P - Time Spent With Patient Total time spent is greater than 50% in coordination of care (as documented) at patient's floor/unit and/or counseling patient: 25 - 35 minutes (1) Acute decompensated heart failure Status: Acute Assessment and plan: * Acute decompensated systolic heart failure with pulmonary edema-clinically improving with aggressive diuresis. Repeat echocardiogram awaited. Last EF 30% as of July 2018. Initiate beta chelo/LAKE inhibitor * Acute hypoxic respiratory failure secondary to above-continue intermittent noninvasive ventilation/diuresis to improve lung compliance. * History of hypertension resume Coreg/LAKE inhibitor * History of gout continue colchicine/allopurinol * Atrial fibrillation rate controlled, anticoagulation on rivaroxaban * History of CAD status post CABG continue aspirin and statin LAKE inhibitor and beta chelo. * Abnormal liver enzymes-reviewed previous ultrasound - chronic cholecystitis with cholelithiasis. * Prophylaxis-currently on anticoagulation * Full code Plan * intermittent Noninvasive ventilation * continue diuresis * AWAIT Echocardiogram * Pre-existing medical condition management on home meds Current Visit: Yes Medical - PN: Qual - VTE Deep Vein Thrombosis/Pulmonary Embolism Present on Admission: No
[2018-12-19] MEDS: LISINOPRIL 10 MG TABLET PO SCH (20:17)
[2018-12-19] MEDS: SENNOSIDES/DOCUSATE SODIUM 1 TAB TABLET PO SCH (20:17)
[2018-12-19] MEDS: COLCHICINE 0.6 MG TABLET PO PRN (20:17)
[2018-12-19] MEDS: SIMVASTATIN 20 MG TABLET PO SCH (20:17)
[2018-12-20 04:55] LABS: Mean Corpuscular HGB Conc 33.7 g/dL (31.0-36.0); Platelet Count 103 K/mcL (140-440); Red Cell Distribution Width 17.2 % (11.5-14.5)
[2018-12-20 05:14] LABS: ALT/SGPT 38 U/l (0-40); Albumin/Globulin Ratio 0.8 (1.0-2.3); Alkaline Phosphatase 230 U/L (39-117); Bilirubin,Direct 1.6 mg/dL (0.0-0.3); Blood Urea Nitrogen 31 mg/dl (8-23); Gamma Glutamyl Transpeptidase 112 U/L (8-61); Uric Acid 10.6 mg/dL (2.5-8.0)
[2018-12-20] MEDS: METOLAZONE 2.5 MG TABLET PO SCH (05:27)
[2018-12-20] MEDS: FUROSEMIDE 40 MG/4 ML VIAL IV SCH ×2 (05:27→13:16)
[2018-12-20] MEDS: 0.9 % SODIUM CHLORIDE 10 ML SYRINGE IV SCH ×3 (05:28→21:15)
[2018-12-20 06:19] LABS: Anisocytosis 1+ (NONE SEEN); Band Neutrophils % 1 % (0-10); Eosinophils % (Manual) 11 % (0-7); Lymphocytes % 18 % (15-49); Macrocytosis 1+ (NONE SEEN); Monocytes % (Manual) 11 % (1-12); Platelet Estimate DECREASED (NORMAL); RBC Morphology ABNORM (NORMAL); Segmented Neutrophils % 59 % (38-78)
[2018-12-20] MEDS: CARVEDILOL 3.125 MG TABLET PO SCH ×2 (08:00→17:34)
[2018-12-20] MEDS: MULTIVIT,THER IRON,CA,FA & MIN 1 TABLET PO SCH (08:00)
[2018-12-20] MEDS: DOCUSATE SODIUM 100 MG CAPSULE PO SCH ×2 (08:02→21:15)
[2018-12-20] MEDS: POTASSIUM CHLORIDE 20 MEQ TABLET PO SCH (08:02)
[2018-12-20] MEDS: ASPIRIN 81 MG TAB.CHEW PO SCH (08:02)
[2018-12-20] MEDS: ACETAMINOPHEN 325 MG TABLET PO PRN ×2 (08:15→17:41)
--- NOTE | 2018-12-20 08:51 | XRay Report ---
HISTORY: Follow-up congestive heart failure and pulmonary edema FINDINGS: The heart remains moderately enlarged. There is still congestive heart failure with pulmonary edema. Contour the diaphragm suggest presence of a small subpulmonic pleural effusion on the right side. The congestive heart failure has not changed significantly compared with prior study done on 12/18/18. IMPRESSION: Persistent congestive heart failure with pulmonary edema and no significant change Interpreted and Authenticated by: Geovanni Goldberg 12/20/18
--- NOTE | 2018-12-20 09:37 | Internal Med Progress Note ---
Medical - PN: Subj Patient information: Note initiated : 12/20/18 at 9:34 am Service Date, if different from initiated Date: [] Patient: Liz Bland a 73 y/o M admitted on 12/18/18 for Wheezing. Chief Complaint: [] Interval history: Mr. Bland is a 73 year old M with history of NYHA class III systolic heart marlene lure with EF 30% and recent hospitalization in October and was transferred to senior care home. Patient was discharged from senior care home 5 days ago and has since gotten increasingly short of breath along with orthopnea and increasing lower extremity swelling. Over the last 24 hours patient has not been able to get out of bed or function due to profound dyspnea. He lives alone and apparently has been sleeping in a camper outside of his home. With worsening symptoms he presents to the ER. Initial workup was consistent with acute CHF exacerbation on chest imaging. Patient was started on diuretics and subsequently hospitalist service was consulted. At the time of evaluation patient is alert and oriented remarkably short of breath unable to talk in full sentences. Denies associated fever cough productive sputum chills or chest palpitation. Endorses to using NSAIDs for generalized body pain over the last month. He denies excessive salt diet. He further denies missing his regular medications. 12/19-patient doing better. Diuresed over 1600 cc. Intermittently noninvasive ventilation. Clinically improving. Able to talk in full sentences. Improved orthopnea. No overnight fever chills nausea vomiting. No other concerns expressed nursing staff. Start cardiac diet and physical therapy. Case management to coordinate SNF transfer on discharge 12/20- persistent CHF on chest imaging. However over 4000 cc net negative. Continue diuresis. Target additional 4-5 L negative fluid balance. Recommend SNF transfer. Case management to coordinate. No overnight fever chills nausea vomiting or concerns per staff. Persistent lymphedema but improved. Groin rash improving. - Constitutional Vitals: Vital Signs Temp Pulse Resp BP Pulse Ox 98.5 F 88 18 124/98 95 12/20/18 08:15 12/20/18 08:00 12/20/18 08:22 12/20/18 08:01 12/20/18 07:20 Period Temp Pulse Resp BP Sys/Levin Pulse Ox Last 24 Hr 97.9 F-98.8 F 55-88 11-30 86-133/57-106 89-100 Intake and Output 12/19/18 12/20/18 12/20/18 21:59 05:59 13:59 Intake Total 240 0 Output Total 1570 1460 260 Balance -1330 -1460 -260 Weight 256 lb 3.2 oz Intake & Output: Intake & Output 12/19/18 12/20/18 12/20/18 21:59 05:59 13:59 Intake Total 240 0 Output Total 1570 1460 260 Balance -1330 -1460 -260 Weight 256 lb 3.2 oz Intake: Oral 240 0 Output: Urine Catheter Amount 1570 1460 260 Other: Urine Appearance Clear Clear Clear Uretheral (Roque) Clear Clear Urine Color Light Yara Bright Yellow Bright Yellow Uretheral (Roque) Light Yara Pale Stool Size Moderate Stool Color Brown Yellow Stool Consistency Formed # Bowel Movements 1 General appearance: moderate distress (shortness of breath) Exam: Able to talk and he is full sentences Alert oriented On 2 L oxygen Foleys draining clear urine Extensive abdominal pannus/fold excoriation and erythema improving V lymphedema/scrotal edema improved Medical - PN: Obj Da - Labs CBC & Chem 7: 12/20/18 04:03 12/20/18 04:03 Labs: Abnormal Lab Results 12/20/18 12/20/18 12/19/18 04:03 04:03 04:19 WBC 4.1 L RBC 3.40 L Hgb 11.5 L Hct 34.3 L MCV 101.0 H RDW 17.2 H Plt Count 103 L [place] % (Auto) Lymph # (Auto) Lymphocytes % Eosinophils % (Manual) 11 H Platelet Estimate Decreased A RBC Morphology Abnorm A Anisocytosis 1+ A Macrocytosis 1+ A Potassium 3.2 L 3.0 L BUN 31 H 29 H Creatinine 1.3 H Uric Acid 10.6 H 9.9 H Calcium 8.1 L 8.1 L Total Bilirubin 2.6 H 2.4 H Direct Bilirubin 1.6 H 1.7 H GGT 112 H 112 H AST 44 H 49 H ALT 43 H Alkaline Phosphatase 230 H 228 H NT-Pro-B Natriuret Pep Albumin 3.0 L Globulin Albumin/Globulin Ratio 0.8 L 0.9 L Amorphous Crystals Hyaline Casts WBC Casts 12/19/18 12/18/18 12/18/18 04:19 17:00 16:38 WBC RBC 3.38 L 3.71 L Hgb 11.3 L 12.3 L Hct 34.3 L 37.5 L MCV 101.4 H 101.2 H RDW 16.9 H 17.7 H Plt Count 116 L 123 L [place] % (Auto) 12.7 H Lymph # (Auto) 0.9 L Lymphocytes % 8 L Eosinophils % (Manual) Platelet Estimate Decreased A RBC Morphology Abnorm A Anisocytosis 1+ A Macrocytosis 1+ A Potassium BUN Creatinine Uric Acid Calcium Total Bilirubin Direct Bilirubin GGT AST ALT Alkaline Phosphatase NT-Pro-B Natriuret Pep Albumin Globulin Albumin/Globulin Ratio Amorphous Crystals Mod A Hyaline Casts 24 H WBC Casts 17 H 12/18/18 16:05 WBC RBC Hgb Hct MCV RDW Plt Count [place] % (Auto) Lymph # (Auto) Lymphocytes % Eosinophils % (Manual) Platelet Estimate RBC Morphology Anisocytosis Macrocytosis Potassium BUN 29 H Creatinine Uric Acid Calcium Total Bilirubin 3.4 H Direct Bilirubin GGT AST 71 H ALT 52 H Alkaline Phosphatase 264 H NT-Pro-B Natriuret Pep 03128.0 H Albumin Globulin 4.0 H Albumin/Globulin Ratio 0.9 L Amorphous Crystals Hyaline Casts WBC Casts Meds: Medications Acetaminophen (Tylenol) 650 mg PO Q4-6HP PRN PRN Reason: PAIN/FEVER > 101 Last Admin: 12/20/18 08:15 Dose: 650 mg Documented by: Albuterol/Ipratropium (Duoneb) 3 ml NEB Q4HP PRN PRN Reason: Shortness Of Breath Last Admin: 12/19/18 20:17 Dose: 3 ml Documented by: Aspirin (Aspirin) 81 mg PO DAILY [facility] Last Admin: 12/20/18 08:02 Dose: 81 mg Documented by: [facility] Last Admin: 12/20/18 08:00 Dose: 3.125 mg Documented by: Colchicine (Colcrys) 0.6 mg PO HSP PRN PRN Reason: Pain Last Admin: 12/19/18 20:17 Dose: 0.6 mg Documented by: Docusate Sodium (Colace) 100 mg PO BID [facility] Last Admin: 12/20/18 08:02 Dose: 100 mg Documented by: Furosemide (Lasix) 40 mg IV Q8 [facility] Last Admin: 12/20/18 05:27 Dose: 40 mg Documented by: Magnesium Sulfate (Magnesium Sulfate) 2 gm in 50 mls @ 50 mls/hr IV UD PRN PRN Reason: MG = or < 1.7 Acetaminophen (Ofirmev) 1,000 mg in 100 mls @ 200 mls/hr IV Q6HP PRN PRN Reason: PAIN/FEVER > 101 Iron Carb/Multivit/[place]/Folic Acid (Multivitamin W/Minerals) 1 tab PO DAILY [facility] Last Admin: 12/20/18 08:00 Dose: 1 tab Documented by: Lisinopril (Zestril) 10 mg PO [facility] Last Admin: 12/19/18 20:17 Dose: 10 mg Documented by: Metolazone (Zaroxolyn) 2.5 mg PO DAILY@0530 [facility] Last Admin: 12/20/18 05:27 Dose: 2.5 mg Documented by: Ondansetron HCl (Zofran) 4 mg IV Q4-6HP PRN PRN Reason: Nausea And Vomiting Potassium Chloride (Klor-Con) 40 meq PO DAILYP PRN PRN Reason: K+ < 3.5 Last Admin: 12/19/18 07:38 Dose: 40 meq Documented by: [facility] Last Admin: 12/20/18 08:02 Dose: 20 meq Documented by: Senna/Docusate Sodium (Senna Plus Tablet) 1 tab PO [facility] Last Admin: 12/19/18 20:17 Dose: 1 tab Documented by: Simvastatin (Zocor) 20 mg PO [facility] Last Admin: 12/19/18 20:17 Dose: 20 mg Documented by: Sodium Chloride (Saline Flush) 10 ml IV Q8 [facility] Last Admin: 12/20/18 05:28 Dose: 10 ml Documented by: Medical - PN: A/P - Time Spent With Patient Total time spent is greater than 50% in coordination of care (as documented) at patient's floor/unit and/or counseling patient: 25 - 35 minutes (1) Acute decompensated heart failure Status: Acute Assessment and plan: * Acute decompensated systolic heart failure with pulmonary edema-clinically improving with aggressive diuresis. Last EF 30% as of July 2018. Repeat echo pending. Continue beta chelo/LAKE inhibitor * Acute hypoxic respiratory failure secondary to above-clinically improved. Off NPPV, continue aggressive diuresis to improve lung compliance. * History of hypertension continue Coreg/LAKE inhibitor * History of gout continue colchicine/allopurinol * Atrial fibrillation rate controlled, anticoagulation on rivaroxaban * History of CAD status post CABG continue aspirin and statin LAKE inhibitor and beta chelo. * Abnormal liver enzymes-secondary to congestive hepatopathy. Improving * Prophylaxis-currently on anticoagulation * Full code Plan * Continue aggressive diuresis and target additional 5 L negative fluid balance * Continue fluid restriction/low salt diet, CHF education * Optimize CHF management based on echocardiogram results * Pre-existing medical condition management on home meds * PT OT nutritional support * Anticipate discharge to SNF Saturday Current Visit: Yes Medical - PN: Qual - VTE Deep Vein Thrombosis/Pulmonary Embolism Present on Admission: No
--- NOTE | 2018-12-20 13:55 | General Surgery Progress Note ---
Subjective Narrative: Note initiated : 12/20/18 at 1:52 pm Service Date, if different from initiated Date: [] Patient: Liz Bland 73 y/o M admitted on 12/18/18 for Wheezing. Chief Complaint: [] Patient seen on rounds with nursing staff. Progress reviewed. Patient is more alert and appropriate today. Cooperative. Answering Qs and follows commands. Objective Temp Pulse Resp BP Pulse Ox 98.5 F 69 20 94/49 97 12/20/18 08:15 12/20/18 09:02 12/20/18 12:01 12/20/18 11:38 12/20/18 11:38 AVSS. Unifocal PVCs on monitor. Base line ? Dermatitis / rash under panniculus skin folds is improving. - Additional Data Intake & Output - Last 24 hours: Intake & Output 12/18/18 12/19/18 12/20/18 12/21/18 05:59 05:59 05:59 05:59 Intake Total 750 1100 1060 Output Total 1775 3520 1160 Balance -1025 -2420 -100 Weight 255 lb 8 oz 256 lb 3.2 oz - Labs 12/20/18 04:03 12/20/18 04:03 Diabetes panel 12/20/18 Range/Units 04:03 Sodium 137 (133-145) mmol/L Potassium 3.2 L (3.3-5.1) mmol/L Chloride 100 (96-108) mmol/L Carbon Dioxide 26 (22-30) mmol/L BUN 31 H (8-23) mg/dl Creatinine 1.3 H (0.7-1.2) mg/dl Glucose 85 (70-105) mg/dL Calcium 8.1 L (8.6-10.4) mg/dl AST 44 H (0-37) U/l ALT 38 (0-40) U/l Alkaline Phosphatase 230 H (39-117) U/L Total Protein 6.6 (5.9-8.4) gm/dL Albumin 3.0 L (3.2-5.2) gm/dL Triglycerides 55 (<150) mg/dl Calcium panel 12/20/18 Range/Units 04:03 Calcium 8.1 L (8.6-10.4) mg/dl Phosphorus 2.8 (2.7-4.5) mg/dL Albumin 3.0 L (3.2-5.2) gm/dL Pituitary panel 12/20/18 Range/Units 04:03 Sodium 137 (133-145) mmol/L Potassium 3.2 L (3.3-5.1) mmol/L Chloride 100 (96-108) mmol/L Carbon Dioxide 26 (22-30) mmol/L BUN 31 H (8-23) mg/dl Creatinine 1.3 H (0.7-1.2) mg/dl Glucose 85 (70-105) mg/dL Calcium 8.1 L (8.6-10.4) mg/dl Adrenal panel 12/20/18 Range/Units 04:03 Sodium 137 (133-145) mmol/L Potassium 3.2 L (3.3-5.1) mmol/L Chloride 100 (96-108) mmol/L Carbon Dioxide 26 (22-30) mmol/L BUN 31 H (8-23) mg/dl Creatinine 1.3 H (0.7-1.2) mg/dl Glucose 85 (70-105) mg/dL Calcium 8.1 L (8.6-10.4) mg/dl Total Bilirubin 2.6 H (0.0-1.0) mg/dL AST 44 H (0-37) U/l ALT 38 (0-40) U/l Alkaline Phosphatase 230 H (39-117) U/L Total Protein 6.6 (5.9-8.4) gm/dL Albumin 3.0 L (3.2-5.2) gm/dL Assessment and Plan (1) Dermatitis associated with moisture from urinary incontinence 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 Status: Acute Current Visit: Yes (2) Edema of both legs Status: Chronic Current Visit: Yes (3) Edema of both feet Status: Chronic Current Visit: Yes (4) Edema of both ankles Status: Chronic Current Visit: Yes - Time Spent With Patient Total time spent is greater than 50% in coordination of care (as documented) at patient's floor/unit and/or counseling patient: Assessment; Satisfactory progress from wound care point of view. Plan: Continue present treatment. less than 15 minutes
--- NOTE | 2018-12-20 14:38 | Internal Med Progress Note ---
Medical - PN: Subj Patient information: Note initiated : 12/20/18 at 2:30 pm Service Date, if different from initiated Date: [] Patient: Liz Bland a 73 y/o M admitted on 12/18/18 for Wheezing. Chief Complaint: [] Interval history: Mr. Bland is a 73 year old M with history of NYHA class III systolic heart marlene lure with EF 30% and recent hospitalization in October and was transferred to [facility] home. Patient was discharged from [facility] home 5 days ago and has since gotten increasingly short of breath along with orthopnea and increasing lower extremity swelling. Over the last 24 hours patient has not been able to get out of bed or function due to profound dyspnea. He lives alone and apparently has been sleeping in a camper outside of his home. With worsening symptoms he presents to the ER. Initial workup was consistent with acute CHF exacerbation on chest imaging. Patient was started on diuretics and subsequently hospitalist service was consulted. At the time of evaluation patient is alert and oriented remarkably short of breath unable to talk in full sentences. Denies associated fever cough productive sputum chills or chest palpitation. Endorses to using NSAIDs for generalized body pain over the last month. He denies excessive salt diet. He further denies missing his regular medications. 12/19-patient doing better. Diuresed over 1600 cc. Intermittently noninvasive ventilation. Clinically improving. Able to talk in full sentences. Improved orthopnea. No overnight fever chills nausea vomiting. No other concerns expressed nursing staff. Start cardiac diet and physical therapy. Case management to coordinate SNF transfer on discharge 12/20- persistent CHF on chest imaging. However over 4000 cc net negative. Continue diuresis. Target additional 4-5 L negative fluid balance. Recommend SNF transfer. Case management to coordinate. No overnight fever chills nausea vomiting or concerns per staff. Persistent lymphedema but improved. Groin rash improving. 12/21 - Constitutional Vitals: Vital Signs Temp Pulse Resp BP Pulse Ox 98.5 F 69 33 H 70/50 95 12/20/18 08:15 12/20/18 09:02 12/20/18 14:15 12/20/18 14:07 12/20/18 14:15 Period Temp Pulse Resp BP Sys/Levin Pulse Ox Last 24 Hr 97.9 F-98.8 F 55-88 11-33 70-133/46-106 89-100 Intake and Output 12/20/18 12/20/18 12/20/18 05:59 13:59 21:59 Intake Total 1060 Output Total 1460 1160 Balance -1460 -100 Intake & Output: Intake & Output 12/20/18 12/20/18 12/20/18 05:59 13:59 21:59 Intake Total 1060 Output Total 1460 1160 Balance -1460 -100 Intake: Oral 1060 Output: Urine Catheter Amount 1460 1160 Other: Meal Lunch Percent of Meal Consumed 100% Urine Appearance Clear Clear Uretheral (Roque) Clear Urine Color Bright Yellow Bright Yellow Uretheral (Ro[place]) Pale Stool Size Moderate Stool Color Brown Yellow Stool Consistency Formed # Bowel Movements 1 Exam: General: Alert, Awake, No acute Distress, obesity Eyes/N/T: EOMI, Head/Neck: neck supple, CV: RRR, No murmurs, Pulm: Clear b/l, no wheezing/rhonchi/rales Abd: Ext: no clubbing/cyanosis/ Neuro: Alert, no focal deficits, moves all extremities, Skin: warm/dry Medical - PN: Obj Da - Labs CBC & Chem 7: 12/20/18 04:03 12/20/18 04:03 Labs: Abnormal Lab Results 12/20/18 12/20/18 12/19/18 04:03 04:03 04:19 WBC 4.1 L RBC 3.40 L Hgb 11.5 L Hct 34.3 L MCV 101.0 H RDW 17.2 H Plt Count 103 L [place] % (Auto) Lymph # (Auto) Lymphocytes % Eosinophils % (Manual) 11 H Platelet Estimate Decreased A RBC Morphology Abnorm A Anisocytosis 1+ A Macrocytosis 1+ A Potassium 3.2 L 3.0 L BUN 31 H 29 H Creatinine 1.3 H Uric Acid 10.6 H 9.9 H Calcium 8.1 L 8.1 L Total Bilirubin 2.6 H 2.4 H Direct Bilirubin 1.6 H 1.7 H GGT 112 H 112 H AST 44 H 49 H ALT 43 H Alkaline Phosphatase 230 H 228 H NT-Pro-B Natriuret Pep Albumin 3.0 L Globulin Albumin/Globulin Ratio 0.8 L 0.9 L Amorphous Crystals Hyaline Casts WBC Casts 12/19/18 12/18/18 12/18/18 04:19 17:00 16:38 WBC RBC 3.38 L 3.71 L Hgb 11.3 L 12.3 L Hct 34.3 L 37.5 L MCV 101.4 H 101.2 H RDW 16.9 H 17.7 H Plt Count 116 L 123 L [place] % (Auto) 12.7 H Lymph # (Auto) 0.9 L Lymphocytes % 8 L Eosinophils % (Manual) Platelet Estimate Decreased A RBC Morphology Abnorm A Anisocytosis 1+ A Macrocytosis 1+ A Potassium BUN Creatinine Uric Acid Calcium Total Bilirubin Direct Bilirubin GGT AST ALT Alkaline Phosphatase NT-Pro-B Natriuret Pep Albumin Globulin Albumin/Globulin Ratio Amorphous Crystals Mod A Hyaline Casts 24 H WBC Casts 17 H 12/18/18 16:05 WBC RBC Hgb Hct MCV RDW Plt Count [place] % (Auto) Lymph # (Auto) Lymphocytes % Eosinophils % (Manual) Platelet Estimate RBC Morphology Anisocytosis Macrocytosis Potassium BUN 29 H Creatinine Uric Acid Calcium Total Bilirubin 3.4 H Direct Bilirubin GGT AST 71 H ALT 52 H Alkaline Phosphatase 264 H NT-Pro-B Natriuret Pep 31889.0 H Albumin Globulin 4.0 H Albumin/Globulin Ratio 0.9 L Amorphous Crystals Hyaline Casts WBC Casts Meds: Medications Acetaminophen (Tylenol) 650 mg PO Q4-6HP PRN PRN Reason: PAIN/FEVER > 101 Last Admin: 12/20/18 08:15 Dose: 650 mg Documented by: Albuterol/Ipratropium (Duoneb) 3 ml NEB Q4HP PRN PRN Reason: Shortness Of Breath Last Admin: 12/19/18 20:17 Dose: 3 ml Documented by: Aspirin (Aspirin) 81 mg PO DAILY [facility] Last Admin: 12/20/18 08:02 Dose: 81 mg Documented by: Carvedilol (Coreg) 3.125 mg PO BIDCC [facility] Last Admin: 12/20/18 08:00 Dose: 3.125 mg Documented by: Colchicine (Colcrys) 0.6 mg PO HSP PRN PRN Reason: Pain Last Admin: 12/19/18 20:17 Dose: 0.6 mg Documented by: Docusate Sodium (Colace) 100 mg PO BID [facility] Last Admin: 12/20/18 08:02 Dose: 100 mg Documented by: Furosemide (Lasix) 40 mg IV Q8 [facility] Last Admin: 12/20/18 13:16 Dose: 40 mg Documented by: Magnesium Sulfate (Magnesium Sulfate) 2 gm in 50 mls @ 50 mls/hr IV UD PRN PRN Reason: MG = or < 1.7 Acetaminophen (Ofirmev) 1,000 mg in 100 mls @ 200 mls/hr IV Q6HP PRN PRN Reason: PAIN/FEVER > 101 Iron Carb/Multivit/Courtroom Deputy/Folic Acid (Multivitamin W/Minerals) 1 tab PO DAILY [facility] Last Admin: 12/20/18 08:00 Dose: 1 tab Documented by: Lisinopril (Zestril) 10 mg PO [facility] Last Admin: 12/19/18 20:17 Dose: 10 mg Documented by: Metolazone (Zaroxolyn) 2.5 mg PO DAILY@0530 [facility] Last Admin: 12/20/18 05:27 Dose: 2.5 mg Documented by: Ondansetron HCl (Zofran) 4 mg IV Q4-6HP PRN PRN Reason: Nausea And Vomiting Potassium Chloride (Klor-Con) 40 meq PO DAILYP PRN PRN Reason: K+ < 3.5 Last Admin: 12/19/18 07:38 Dose: 40 meq Documented by: Potassium Chloride (Kdur) 20 meq PO QAC [facility] Last Admin: 12/20/18 08:02 Dose: 20 meq Documented by: Senna/Docusate Sodium (Senna Plus Tablet) 1 tab PO [facility] Last Admin: 12/19/18 20:17 Dose: 1 tab Documented by: Simvastatin (Zocor) 20 mg PO [facility] Last Admin: 12/19/18 20:17 Dose: 20 mg Documented by: Sodium Chloride (Saline Flush) 10 ml IV Q8 [facility] Last Admin: 12/20/18 13:17 Dose: 10 ml Documented by: Medical - PN: A/P - Time Spent With Patient Total time spent is greater than 50% in coordination of care (as documented) at patient's floor/unit and/or counseling patient: - Narrative A/P Narrative: A: *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 -updated echo EF 40-45 (EF 30% on echo in July 2018), RV systolic fxn moderately reduced, diastolic dysfxn *Acute hypoxic respiratory failure: 2/2 above, clinically improved. -Off NPPV, continue aggressive diuresis to improve lung compliance. *HTN: *History of gout continue colchicine/allopurinol *Atrial fibrillation: rate controlled, anticoagulation on rivaroxaban *History of CAD status post CABG continue aspirin and statin LAKE inhibitor and beta chelo. *Transaminitis: 2/2 congestive hepatopathy. Improved *Anemia, chronic: *Hypokalemia: *CKD III: Plan: -lasix -Continue beta chelo/LAKE inhibitor -Continue fluid restriction/low salt diet, CHF education -Optimize CHF management based on echocardiogram results -Replete electrolytes -PT/OT, nutritional support -f/u with cardio outpt -leg wraps -ppx: Rivaroxaban (pharm clarifying) Full code * Medical - PN: Qual - VTE Deep Vein Thrombosis/Pulmonary Embolism Present on Admission: No
[2018-12-20] MEDS ORDERED: ALBUMIN HUMAN 12.5 GM/50 ML BAG IV ONE (15:01)
[2018-12-20] MEDS ORDERED: POTASSIUM CHLORIDE 20 MEQ TABLET PO ONE (15:03)
[2018-12-20] MEDS: RIVAROXABAN 20 MG TABLET PO SCH (17:40)
[2018-12-20] MEDS: IPRATROPIUM/ALBUTEROL 3 ML AMPUL.NEB NEB PRN (18:49)
[2018-12-20] MEDS: SENNOSIDES/DOCUSATE SODIUM 1 TAB TABLET PO SCH (21:15)
[2018-12-20] MEDS: SIMVASTATIN 20 MG TABLET PO SCH (21:15)
[2018-12-20] MEDS: LISINOPRIL 10 MG TABLET PO SCH (21:15)
[2018-12-20] MEDS: LORazepam 2 MG/ML VIAL IV PRN (22:39)
[2018-12-21] MEDS: 0.9 % SODIUM CHLORIDE 10 ML SYRINGE IV SCH ×4 (05:31→20:23)
[2018-12-21] MEDS: METOLAZONE 2.5 MG TABLET PO SCH (05:31)
[2018-12-21 06:18] LABS: Mean Cell Volume 100.5 fL (80.0-100.0); Mean Corpuscular HGB Conc 32.9 g/dL (31.0-36.0); Platelet Count 108 K/mcL (140-440); RBC 3.44 M/mcL (4.50-5.90); Red Cell Distribution Width 17.2 % (11.5-14.5)
[2018-12-21 06:49] LABS: ALT/SGPT 33 U/l (0-40); Albumin 3.1 gm/dL (3.2-5.2); Albumin/Globulin Ratio 0.8 (1.0-2.3); Alkaline Phosphatase 222 U/L (39-117); Bilirubin,Direct 1.3 mg/dL (0.0-0.3); Blood Urea Nitrogen 35 mg/dl (8-23); Gamma Glutamyl Transpeptidase 110 U/L (8-61); Uric Acid 10.3 mg/dL (2.5-8.0)
[2018-12-21 07:27] LABS: Anisocytosis 1+ (NONE SEEN); Band Neutrophils % 1 % (0-10); Eosinophils % (Manual) 7 % (0-7); Lymphocytes % 22 % (15-49); Macrocytosis 1+ (NONE SEEN); Monocytes % (Manual) 7 % (1-12); Platelet Estimate DECREASED (NORMAL); RBC Morphology ABNORM (NORMAL); Segmented Neutrophils % 63 % (38-78)
--- NOTE | 2018-12-21 07:45 | Internal Med Progress Note ---
Medical - PN: Subj Patient information: Note initiated : 12/21/18 at 7:39 am Service Date, if different from initiated Date: [] Patient: Liz Bland a 73 y/o M admitted on 12/18/18 for Wheezing. Chief Complaint: [] Interval history: Mr. Bland is a 73 year old M with history of NYHA class III systolic heart marlene lure with EF 30% and recent hospitalization in October and was transferred to [facility]. Patient was discharged from [facility] 5 days ago and has since gotten increasingly short of breath along with orthopnea and increasing lower extremity swelling. Over the last 24 hours patient has not been able to get out of bed or function due to profound dyspnea. He lives alone and apparently has been sleeping in a camper outside of his home. With worsening symptoms he presents to the ER. Initial workup was consistent with acute CHF exacerbation on chest imaging. Patient was started on diuretics and subsequently hospitalist service was consulted. At the time of evaluation patient is alert and oriented remarkably short of breath unable to talk in full sentences. Denies associated fever cough productive sputum chills or chest palpitation. Endorses to using NSAIDs for generalized body pain over the last month. He denies excessive salt diet. He further denies missing his regular medications. 12/19-patient doing better. Diuresed over 1600 cc. Intermittently noninvasive ventilation. Clinically improving. Able to talk in full sentences. Improved orthopnea. No overnight fever chills nausea vomiting. No other concerns expressed nursing staff. Start cardiac diet and physical therapy. Case management to coordinate SNF transfer on discharge 12/20- persistent CHF on chest imaging. However over 4000 cc net negative. Continue diuresis. Target additional 4-5 L negative fluid balance. Recommend SNF transfer. Case management to coordinate. No overnight fever chills nausea vomiting or concerns per staff. Persistent lymphedema but improved. Groin rash improving. 12/21 Slept okay after finally falling asleep. Continues to feel tired Has cough and shortness of breath. No chest pain or other complaints. Had a discussion regarding CODE STATUS and patient decided on a DNR status. Review of Systems: denies headache/fever/chills/nausea/vomiting/chest or abdominal pain/diarrhea. Otherwise see above. - Constitutional Vitals: Vital Signs Temp Pulse Resp BP Pulse Ox 97.9 F 76 15 90/57 100 12/21/18 04:01 04/13/19 18:50 12/21/18 06:20 12/21/18 06:01 12/21/18 06:20 Period Temp Pulse Resp BP Sys/Levin Pulse Ox Last 24 Hr 97.9 F-98.5 F 69-88 13-33 34-124/23-98 86-100 Intake and Output 12/20/18 12/21/18 12/21/18 21:59 05:59 13:59 Intake Total 700 Output Total 1320 605 60 Balance -620 -605 -60 Weight 115.122 kg Intake & Output: Intake & Output 12/20/18 12/21/18 12/21/18 21:59 05:59 13:59 Intake Total 700 Output Total 1320 605 60 Balance -620 -605 -60 Weight 115.122 kg Intake: Oral 700 Output: Urine Catheter Amount 1320 605 60 Other: Percent of Meal Consumed 100% Urine Appearance Uretheral (Roque) Clear Urine Color Blood Tinged Dark Red Dark Red Uretheral (Roque) Blood Tinged Urine Odor Uretheral (Roque) Normal Normal Stool Size Large Stool Color Brown Stool Consistency Soft Exam: General: Alert, Awake, No acute Distress, obesity Eyes/N/T: EOMI, Head/Neck: neck supple, CV: RRR, No murmurs, Pulm: Diminished bilaterally, rales noted on the left. No wheezing Abd: Soft, nondistended, positive bowel sounds Ext: no clubbing/cyanosis. Bilateral lower extremity edema 2-3+ Neuro: Alert, no focal deficits, moves all extremities, Skin: warm/dry Medical - PN: Obj Da - Labs CBC & Chem 7: 12/21/18 03:46 12/21/18 03:46 Labs: Abnormal Lab Results 12/21/18 12/21/18 12/20/18 03:46 03:46 04:03 WBC 3.9 L RBC 3.44 L Hgb 11.4 L Hct 34.6 L MCV 100.5 H RDW 17.2 H Plt Count 108 L [place] % (Auto) Lymph # (Auto) Lymphocytes % Eosinophils % (Manual) Platelet Estimate Decreased A RBC Morphology Abnorm A Anisocytosis 1+ A Macrocytosis 1+ A Potassium 3.2 L BUN 35 H 31 H Creatinine 1.3 H Uric Acid 10.3 H 10.6 H Calcium 8.1 L 8.1 L Total Bilirubin 2.1 H 2.6 H Direct Bilirubin 1.3 H 1.6 H GGT 110 H 112 H AST 42 H 44 H ALT Alkaline Phosphatase 222 H 230 H Lactate Dehydrogenase 262 H NT-Pro-B Natriuret Pep Albumin 3.1 L 3.0 L Globulin Albumin/Globulin Ratio 0.8 L 0.8 L Amorphous Crystals Hyaline Casts WBC Casts 12/20/18 12/19/18 12/19/18 04:03 04:19 04:19 WBC 4.1 L RBC 3.40 L 3.38 L Hgb 11.5 L 11.3 L Hct 34.3 L 34.3 L MCV 101.0 H 101.4 H RDW 17.2 H 16.9 H Plt Count 103 L 116 L [place] % (Auto) Lymph # (Auto) Lymphocytes % 8 L Eosinophils % (Manual) 11 H Platelet Estimate Decreased A Decreased A RBC Morphology Abnorm A Abnorm A Anisocytosis 1+ A 1+ A Macrocytosis 1+ A 1+ A Potassium 3.0 L BUN 29 H Creatinine Uric Acid 9.9 H Calcium 8.1 L Total Bilirubin 2.4 H Direct Bilirubin 1.7 H GGT 112 H AST 49 H ALT 43 H Alkaline Phosphatase 228 H Lactate Dehydrogenase NT-Pro-B Natriuret Pep Albumin Globulin Albumin/Globulin Ratio 0.9 L Amorphous Crystals Hyaline Casts WBC Casts 12/18/18 12/18/18 12/18/18 17:00 16:38 16:05 WBC RBC 3.71 L Hgb 12.3 L Hct 37.5 L MCV 101.2 H RDW 17.7 H Plt Count 123 L [place] % (Auto) 12.7 H Lymph # (Auto) 0.9 L Lymphocytes % Eosinophils % (Manual) Platelet Estimate RBC Morphology Anisocytosis Macrocytosis Potassium BUN 29 H Creatinine Uric Acid Calcium Total Bilirubin 3.4 H Direct Bilirubin GGT AST 71 H ALT 52 H Alkaline Phosphatase 264 H Lactate Dehydrogenase NT-Pro-B Natriuret Pep 54746.0 H Albumin Globulin 4.0 H Albumin/Globulin Ratio 0.9 L Amorphous Crystals Mod A Hyaline Casts 24 H WBC Casts 17 H Meds: Medications Acetaminophen (Tylenol) 650 mg PO Q4-6HP PRN PRN Reason: PAIN/FEVER > 101 Last Admin: 12/20/18 17:41 Dose: 650 mg Documented by: Albuterol/Ipratropium (Duoneb) 3 ml NEB Q4HP PRN PRN Reason: Shortness Of Breath Last Admin: 12/20/18 18:49 Dose: 3 ml Documented by: Aspirin (Aspirin) 81 mg PO DAILY [facility] Last Admin: 12/20/18 08:02 Dose: 81 mg Documented by: Colchicine (Colcrys) 0.6 mg PO HSP PRN PRN Reason: Pain Last Admin: 12/19/18 20:17 Dose: 0.6 mg Documented by: Docusate Sodium (Colace) 100 mg PO BID [facility] Last Admin: 12/20/18 21:15 Dose: 100 mg Documented by: Magnesium Sulfate (Magnesium Sulfate) 2 gm in 50 mls @ 50 mls/hr IV UD PRN PRN Reason: MG = or < 1.7 Acetaminophen (Ofirmev) 1,000 mg in 100 mls @ 200 mls/hr IV Q6HP PRN PRN Reason: PAIN/FEVER > 101 Iron Carb/Multivit/[employer]/Folic Acid (Multivitamin W/Minerals) 1 tab PO DAILY [facility] Last Admin: 12/20/18 08:00 Dose: 1 tab Documented by: Lisinopril (Zestril) 10 mg PO HS [facility] Last Admin: 12/20/18 21:15 Dose: 10 mg Documented by: Lorazepam (Ativan) 0 mg IV Q4-6HP PRN PRN Reason: ANXIETY/SEDATION Last Admin: 12/20/18 22:39 Dose: 1 mg Documented by: Metolazone (Zaroxolyn) 2.5 mg PO DAILY@0530 [facility] Last Admin: 12/21/18 05:31 Dose: 2.5 mg Documented by: Metoprolol Succinate (Toprol Xl) 12.5 mg PO DAILY [facility] Ondansetron HCl (Zofran) 4 mg IV Q4-6HP PRN PRN Reason: Nausea And Vomiting Potassium Chloride (Klor-Con) 40 meq PO DAILYP PRN PRN Reason: K+ < 3.5 Last Admin: 12/19/18 07:38 Dose: 40 meq Documented by: Potassium Chloride (Kdur) [facility] Last Admin: 12/20/18 08:02 Dose: 20 meq Documented by: Rivaroxaban (Xarelto) 20 mg PO QPMCC [facility] Last Admin: 12/20/18 17:40 Dose: 20 mg Documented by: Senna/Docusate Sodium (Senna Plus Tablet) 1 tab PO [facility] Last Admin: 12/20/18 21:15 Dose: 1 tab Documented by: Simvastatin (Zocor) 20 mg PO [facility] Last Admin: 12/20/18 21:15 Dose: 20 mg Documented by: Sodium Chloride (Saline Flush) 10 ml IV Q8 [facility] Last Admin: 12/21/18 05:31 Dose: 10 ml Documented by: Medical - PN: A/P - Time Spent With Patient Total time spent is greater than 50% in coordination of care (as documented) at patient's floor/unit and/or counseling patient: - Narrative A/P Narrative: A: *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 -updated echo EF 40-45 (EF 30% on echo in July 2018), RV systolic fxn moderately reduced, diastolic dysfxn *Acute hypoxic respiratory failure: 2/2 above, clinically improved. -Off NPPV, continue aggressive diuresis to improve lung compliance -no on NC 3@ 98% *Hypotension: *History of gout continue colchicine/allopurinol *Atrial fibrillation: rate controlled, anticoagulation on rivaroxaban -pt doesn't recall history, hasn't been taking recently, but med was noted on admission in October *History of CAD status post CABG continue aspirin and statin LAKE inhibitor and beta chelo. *Transaminitis: 2/2 congestive hepatopathy. Improved *Anemia, chronic: *Hypokalemia: *CKD III: Plan: -lasix -change coreg to toprol, hold lisinopril for now -Continue fluid restriction/low salt diet, CHF education -Optimize CHF management based on echocardiogram results -wean off O2 -Replete electrolytes -PT/OT, nutritional support -f/u with cardio outpt -leg wraps -ppx: Rivaroxaban (pharm clarifying) No Code Medical - PN: Qual - VTE Deep Vein Thrombosis/Pulmonary Embolism Present on Admission: No
[2018-12-21] MEDS: ASPIRIN 81 MG TAB.CHEW PO SCH (08:22)
[2018-12-21] MEDS: ACETAMINOPHEN 325 MG TABLET PO PRN (08:22)
[2018-12-21] MEDS: POTASSIUM CHLORIDE 20 MEQ TABLET PO SCH (08:22)
[2018-12-21] MEDS: COLCHICINE 0.6 MG TABLET PO PRN ×2 (08:22→20:22)
[2018-12-21] MEDS: MULTIVIT,THER IRON,CA,FA & MIN 1 TABLET PO SCH (08:22)
[2018-12-21] MEDS: DOCUSATE SODIUM 100 MG CAPSULE PO SCH ×2 (08:23→20:23)
[2018-12-21] MEDS: METOPROLOL SUCCINATE 25 MG TAB.XL.24H PO SCH (08:23)
[2018-12-21] MEDS ORDERED: ALBUMIN HUMAN 12.5 GM/50 ML BAG IV ONE (09:32)
[2018-12-21] MEDS ORDERED: FUROSEMIDE 40 MG/4 ML VIAL IV ONE (09:32)
[2018-12-21] MEDS: RIVAROXABAN 20 MG TABLET PO SCH (17:21)
[2018-12-21] MEDS: LORazepam 2 MG/ML VIAL IV PRN (20:22)
[2018-12-21] MEDS: LISINOPRIL 10 MG TABLET PO SCH (20:22)
[2018-12-21] MEDS: SIMVASTATIN 20 MG TABLET PO SCH (20:22)
[2018-12-21] MEDS: SENNOSIDES/DOCUSATE SODIUM 1 TAB TABLET PO SCH (20:24)
[2018-12-22] MEDS: 0.9 % SODIUM CHLORIDE 10 ML SYRINGE IV SCH ×3 (05:15→20:35)
[2018-12-22 05:39] LABS: Mean Corpuscular HGB Conc 33.1 g/dL (31.0-36.0); Platelet Count 117 K/mcL (140-440); RBC 3.52 M/mcL (4.50-5.90)
[2018-12-22 06:07] LABS: ALT/SGPT 43 U/l (0-40); Albumin 3.1 gm/dL (3.2-5.2); Albumin/Globulin Ratio 0.8 (1.0-2.3); Alkaline Phosphatase 321 U/L (39-117); Bilirubin,Direct 2.4 mg/dL (0.0-0.3); Blood Urea Nitrogen 34 mg/dl (8-23); Gamma Glutamyl Transpeptidase 197 U/L (8-61); Uric Acid 10.5 mg/dL (2.5-8.0)
[2018-12-22 06:51] LABS: Anisocytosis 1+ (NONE SEEN); Band Neutrophils % 6 % (0-10); Basophils % (Manual) 2 % (0-2); Eosinophils % (Manual) 6 % (0-7); Lymphocytes % 26 % (15-49); Macrocytosis 1+ (NONE SEEN); Monocytes % (Manual) 7 % (1-12); Platelet Estimate DECREASED (NORMAL); RBC Morphology ABNORM (NORMAL); Segmented Neutrophils % 52 % (38-78)
--- NOTE | 2018-12-22 07:01 | Internal Med Progress Note ---
Medical - PN: Subj Patient information: Note initiated : 12/22/18 at 6:57 am Service Date, if different from initiated Date: [] Patient: Liz Bland a 73 y/o M admitted on 12/18/18 for Wheezing. Chief Complaint: [] Interval history: Mr. Bland is a 73 year old M with history of NYHA class III systolic heart marlene lure with EF 30% and recent hospitalization in October and was transferred to [facility]. Patient was discharged from [facility] 5 days ago and has since gotten increasingly short of breath along with orthopnea and increasing lower extremity swelling. Over the last 24 hours patient has not been able to get out of bed or function due to profound dyspnea. He lives alone and apparently has been sleeping in a camper outside of his home. With worsening symptoms he presents to the ER. Initial workup was consistent with acute CHF exacerbation on chest imaging. Patient was started on diuretics and subsequently hospitalist service was consulted. At the time of evaluation patient is alert and oriented remarkably short of breath unable to talk in full sentences. Denies associated fever cough productive sputum chills or chest palpitation. Endorses to using NSAIDs for generalized body pain over the last month. He denies excessive salt diet. He further denies missing his regular medications. 12/19-patient doing better. Diuresed over 1600 cc. Intermittently noninvasive ventilation. Clinically improving. Able to talk in full sentences. Improved orthopnea. No overnight fever chills nausea vomiting. No other concerns expressed nursing staff. Start cardiac diet and physical therapy. Case management to coordinate SNF transfer on discharge 12/20- persistent CHF on chest imaging. However over 4000 cc net negative. Continue diuresis. Target additional 4-5 L negative fluid balance. Recommend SNF transfer. Case management to coordinate. No overnight fever chills nausea vomiting or concerns per staff. Persistent lymphedema but improved. Groin rash improving. 12/21 Slept okay after finally falling asleep. Continues to feel tired Has cough and shortness of breath. No chest pain or other complaints. Had a discussion regarding CODE STATUS and patient decided on a DNR status. 12/22 Slept okay. No overnight events. Dry cough. Shortness of breath. No chest pain or other complaints. He is not requiring any supplemental oxygen today. Edema slowly improving more so on the right. Review of Systems: denies headache/fever/chills/nausea/vomiting/chest or abdominal pain/diarrhea. Otherwise see above. - Constitutional Vitals: Vital Signs Temp Pulse Resp BP Pulse Ox 98.0 F 82 21 111/70 94 12/22/18 04:01 12/21/18 13:49 12/22/18 06:15 12/22/18 06:00 12/22/18 06:15 Period Temp Pulse Resp BP Sys/Levin Pulse Ox Last 24 Hr 98.0 F-99.5 F 82-88 14-27 60-124/48-109 89-99 Intake and Output 12/21/18 12/22/18 12/22/18 21:59 05:59 13:59 Intake Total 240 Output Total 590 820 Balance -350 -820 Weight 114.487 kg Intake & Output: Intake & Output 12/21/18 12/22/18 12/22/18 21:59 05:59 13:59 Intake Total 240 Output Total 590 820 Balance -350 -820 Weight 114.487 kg Intake: Oral 240 Output: Urine Catheter Amount 550 820 Void Amount 40 Other: Urine Appearance Clear Urine Color Bright Red Dark Red Uretheral (Roque) Blood Tinged Bright Red Urine Odor Strong Uretheral (Ro[place]) Normal Normal # Voids 50 Exam: General: Alert, Awake, No acute Distress, obesity Eyes/N/T: EOMI, Head/Neck: neck supple, CV: RRR, No murmurs, Pulm: Diminished bilaterally, rales noted on the left. No wheezing Abd: Soft, nondistended, positive bowel sounds Ext: no clubbing/cyanosis. Right lower extremity edema 1-2+ and left lower external extremity edema 2-3+ Neuro: Alert, no focal deficits, moves all extremities, Skin: warm/dry Medical - PN: Obj Da - Labs CBC & Chem 7: 12/22/18 03:33 12/22/18 03:33 Labs: Abnormal Lab Results 12/22/18 12/22/18 12/21/18 03:33 03:33 03:46 WBC 4.0 L RBC 3.52 L Hgb 11.8 L Hct 35.5 L MCV 101.0 H RDW 17.0 H Plt Count 117 L Lymphocytes % Eosinophils % (Manual) Platelet Estimate Decreased A RBC Morphology Abnorm A Anisocytosis 1+ A Macrocytosis 1+ A Potassium BUN 34 H 35 H Creatinine Uric Acid 10.5 H 10.3 H Calcium 8.4 L 8.1 L Phosphorus 2.3 L Total Bilirubin 3.6 H 2.1 H Direct Bilirubin 2.4 H 1.3 H GGT 197 H 110 H AST 69 H 42 H ALT 43 H Alkaline Phosphatase 321 H 222 H Lactate Dehydrogenase 294 H 262 H Albumin 3.1 L 3.1 L Albumin/Globulin Ratio 0.8 L 0.8 L 12/21/18 12/20/18 12/20/18 03:46 04:03 04:03 WBC 3.9 L 4.1 L RBC 3.44 L 3.40 L Hgb 11.4 L 11.5 L Hct 34.6 L 34.3 L MCV 100.5 H 101.0 H RDW 17.2 H 17.2 H Plt Count 108 L 103 L Lymphocytes % Eosinophils % (Manual) 11 H Platelet Estimate Decreased A Decreased A RBC Morphology Abnorm A Abnorm A Anisocytosis 1+ A 1+ A Macrocytosis 1+ A 1+ A Potassium 3.2 L BUN 31 H Creatinine 1.3 H Uric Acid 10.6 H Calcium 8.1 L Phosphorus Total Bilirubin 2.6 H Direct Bilirubin 1.6 H GGT 112 H AST 44 H ALT Alkaline Phosphatase 230 H Lactate Dehydrogenase Albumin 3.0 L Albumin/Globulin Ratio 0.8 L 12/19/18 04:19 WBC RBC Hgb Hct MCV RDW Plt Count Lymphocytes % 8 L Eosinophils % (Manual) Platelet Estimate Decreased A RBC Morphology Abnorm A Anisocytosis 1+ A Macrocytosis 1+ A Potassium BUN Creatinine Uric Acid Calcium Phosphorus Total Bilirubin Direct Bilirubin GGT AST ALT Alkaline Phosphatase Lactate Dehydrogenase Albumin Albumin/Globulin Ratio Meds: Medications Acetaminophen (Tylenol) 650 mg PO Q4-6HP PRN PRN Reason: PAIN/FEVER > 101 Last Admin: 12/21/18 08:22 Dose: 650 mg Documented by: Albuterol/Ipratropium (Duoneb) 3 ml NEB Q4HP PRN PRN Reason: Shortness Of Breath Last Admin: 12/20/18 18:49 Dose: 3 ml Documented by: Aspirin (Aspirin) 81 mg PO DAILY [facility] Last Admin: 12/21/18 08:22 Dose: 81 mg Documented by: Colchicine (Colcrys) 0.6 mg PO HSP PRN PRN Reason: Pain Last Admin: 12/21/18 20:22 Dose: 0.6 mg Documented by: Docusate Sodium (Colace) 100 mg PO BID [facility] Last Admin: 12/21/18 20:23 Dose: 100 mg Documented by: Magnesium Sulfate (Magnesium Sulfate) 2 gm in 50 mls @ 50 mls/hr IV UD PRN PRN Reason: MG = or < 1.7 Acetaminophen (Ofirmev) 1,000 mg in 100 mls @ 200 mls/hr IV Q6HP PRN PRN Reason: PAIN/FEVER > 101 Iron Carb/Multivit/[place]/Folic Acid (Multivitamin W/Minerals) 1 tab PO DAILY [facility] Last Admin: 12/21/18 08:22 Dose: 1 tab Documented by: Lisinopril (Zestril) 10 mg PO [facility] Last Admin: 12/21/18 20:22 Dose: 10 mg Documented by: Lorazepam (Ativan) 0 mg IV Q4-6HP PRN PRN Reason: ANXIETY/SEDATION Last Admin: 12/21/18 20:22 Dose: 1 mg Documented by: Metoprolol Succinate (Toprol Xl) 12.5 mg PO DAILY [facility] Last Admin: 12/21/18 08:23 Dose: 12.5 mg Documented by: Ondansetron HCl (Zofran) 4 mg IV Q4-6HP PRN PRN Reason: Nausea And Vomiting Potassium Chloride (Klor-Con) 40 meq PO DAILYP PRN PRN Reason: K+ < 3.5 Last Admin: 12/19/18 07:38 Dose: 40 meq Documented by: Potassium Chloride (Kdur) [facility] Last Admin: 12/21/18 08:22 Dose: 20 meq Documented by: [facility]ar[facility] ([facility]to) [facility] Last Admin: 12/21/18 17:21 Dose: 20 mg Documented by: Senna/Docusate Sodium (Senna Plus Tablet) 1 tab PO [facility] Last Admin: 12/21/18 20:24 Dose: 1 tab Documented by: Simvastatin (Zocor) 20 mg PO [facility] Last Admin: 12/21/18 20:22 Dose: 20 mg Documented by: Sodium Chloride (Saline Flush) 10 ml IV Q8 [facility] Last Admin: 12/22/18 05:15 Dose: 10 ml Documented by: Medical - PN: A/P - Time Spent With Patient Total time spent is greater than 50% in coordination of care (as documented) at patient's floor/unit and/or counseling patient: - Narrative A/P Narrative: A: *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 -updated echo EF 40-45 (EF 30% on echo in July 2018), RV systolic fxn moderately reduced, diastolic dysfxn *Acute hypoxic respiratory failure: 2/2 above, clinically improved. -Off NPPV, continue aggressive diuresis to improve lung compliance -no on room air *Hypotension: resolved, better after changing/decreasing BP meds *History of gout continue colchicine/allopurinol *Atrial fibrillation: rate controlled, anticoagulation on rivaroxaban -pt doesn't recall history, hasn't been taking anticoag recently, but med was noted on admission in October *History of CAD status post CABG continue aspirin and statin [place] inhibitor and beta chelo. *Transaminitis: 2/2 congestive hepatopathy. Improved *Anemia, chronic: *Hypokalemia: *CKD III: *Hematuria from pt pulling on [place] Plan: -IV lasix to PO in AM -changed coreg to toprol, hold lisinopril for now -Continue fluid restriction/low salt diet, CHF education -wean off O2 -Replete electrolytes -PT/OT, nutritional support -f/u with cardio outpt -leg wraps -ppx: Rivaroxaban (pharm clarifying) No Code Medical - PN: Qual - VTE Deep Vein Thrombosis/Pulmonary Embolism Present on Admission: No
[2018-12-22] MEDS: POTASSIUM CHLORIDE 20 MEQ TABLET PO SCH (07:50)
[2018-12-22] MEDS: DOCUSATE SODIUM 100 MG CAPSULE PO SCH ×2 (08:22→20:35)
[2018-12-22] MEDS: ASPIRIN 81 MG TAB.CHEW PO SCH (08:22)
[2018-12-22] MEDS: MULTIVIT,THER IRON,CA,FA & MIN 1 TABLET PO SCH (08:22)
[2018-12-22] MEDS: METOPROLOL SUCCINATE 25 MG TAB.XL.24H PO SCH (08:22)
--- NOTE | 2018-12-22 08:39 | XRay Report ---
CLINICAL INFORMATION: chf f/u COMPARISON: 12/20/2018 FINDINGS: Moderate cardiomegaly is unchanged. Mediastinum is unremarkable. Pulmonary vessels remain moderately distended, but with improvement in edema bilaterally. Moderate infiltrate has developed in the right base. Small vague infiltrate or atelectasis developing in the left base. Small right pleural effusion noted. IMPRESSION: Moderate CHF. Decrease in interstitial edema. Moderate right basilar and small left basilar infiltrate developing Interpreted and Authenticated by: Bret Gamboa 12/22/18
[2018-12-22] MEDS ORDERED: FUROSEMIDE 100 MG/10 ML VIAL IV ONE (10:04)
[2018-12-22] MEDS ORDERED: ALBUMIN HUMAN 12.5 GM/50 ML BAG IV ONE (10:04)
--- NOTE | 2018-12-22 11:07 | Discharge Summary ---
Medical - DS: Prov Patient information: Note initiated : 12/22/18 at 11:05 am Service Date, if different from initiated Date: [] Patient: Liz Bland 73 y/o M admitted on 12/18/18 for Wheezing. Chief Complaint: [] Date of admission: 12/18/18 18:55 Discharge date: 12/23/18 Primary care physician: Laverne Pierre Consults: 12/18/18 Consult to Physician [CONS] Stat Comment: Consulting Provider: Jatinder Pérez Reason For Exam: Physician to Consult 12/19/18 09:11 Consult to Physician [CONS] Routine Comment: Consulting Provider: Paolo Neal Reason For Exam: severe groin rash Medical - DS: Meds - Discharge Medications Prescriptions: Lisinopril [Zestril] 2.5 mg PO HS #10 tab Metoprolol Succinate [Toprol Xl] 12.5 mg PO DAILY #30 tab.xl.24h Rivaroxaban [Xarelto] 20 mg PO QPMCC #30 tab traMADol [Ultram] 50 mg PO BID PRN #20 tab PRN Reason: Pain Active and Home Medications: Home Medications Acetaminophen [Tylenol 8 Hour] 650 mg PO Q4HP PRN 10/12/18 [History Confirmed 12/22/18 Last Taken Unknown] Allopurinol [Zyloprim] 100 mg PO .COMPLEX 10/12/18 [History Confirmed 10/12/18 Last Taken Unknown] Bisacodyl [Dulcolax] 10 mg AK DAILYP PRN 10/12/18 [History Confirmed 12/22/18 Last Taken Unknown] Colchicine [Colcrys] 0.6 mg PO HSP PRN 10/12/18 [History Confirmed 12/18/18 Last Taken Unknown] Magnesium Hydroxide [Milk of Magnesia] 400 mg PO PRN PRN 10/12/18 [History Confirmed 10/12/18 Last Taken Unknown] Metolazone [Zaroxolyn] 2.5 mg PO .COMPLEX 10/12/18 [History Confirmed 10/12/18 Last Taken Unknown] Multivitamin [One Daily Essential] 1 each PO DAILY 10/12/18 [History Confirmed 10/12/18 Last Taken Unknown] Na Phos,M-B/Na Phos,Di-Ba [Fleets Adult] 1 dose AK DAILYP PRN 10/12/18 [History Confirmed 10/12/18 Last Taken Unknown] Nystatin 15 gm TP BID 10/12/18 [History Confirmed 10/12/18 Last Taken Unknown] [place]-3 Fatty Acids [Super [place]-3] 1,000 mg PO Q48H 10/12/18 [History Confirmed 10/12/18 Last Taken Unknown] Rivaroxaban [Xarelto] 20 mg PO DAILY 10/12/18 [History Confirmed 10/12/18 Last Taken Unknown] traMADol [Ultram] 50 mg PO BID PRN 10/12/18 [History Confirmed 10/12/18 Last Taken Unknown] Carvedilol [Coreg] 3.125 mg PO BID #30 tab 10/20/18 [Rx Confirmed 12/18/18 Last Taken Unknown] Aspirin [Elias Chewable Aspirin] 81 mg PO DAILY 12/18/18 [History Confirmed 12/18/18 Last Taken Unknown] Furosemide [Lasix] 40 mg PO BID 12/18/18 [History Confirmed 12/18/18 Last Taken Unknown] Lisinopril [Zestril] 10 mg PO HS 12/18/18 [History Confirmed 12/18/18 Last Taken Unknown] Potassium Chloride [Kdur] 20 meq PO DAILY 12/18/18 [History Confirmed 12/18/18 Last Taken Unknown] Simvastatin [Zocor] 20 mg PO DAILY 12/18/18 [History Confirmed 12/18/18 Last Taken Unknown] Home Medications Acetaminophen [Tylenol 8 Hour] 650 mg PO Q4HP PRN 10/12/18 [History Confirmed 12/22/18 Last Taken Unknown] Allopurinol [Zyloprim] 100 mg PO .COMPLEX 10/12/18 [History Confirmed 10/12/18 Last Taken Unknown] Colchicine [Colcrys] 0.6 mg PO HSP PRN 10/12/18 [History Confirmed 12/18/18 Last Taken Unknown] Metolazone [Zaroxolyn] 2.5 mg PO .COMPLEX 10/12/18 [History Confirmed 10/12/18 Last Taken Unknown] Na Phos,M-B/Na Phos,Di-Ba [Fleets Adult] 1 dose AK DAILYP PRN 10/12/18 [History Confirmed 10/12/18 Last Taken Unknown] Nystatin 15 gm TP BID 10/12/18 [History Confirmed 10/12/18 Last Taken Unknown] Rivaroxaban [Xarelto] 20 mg PO DAILY 10/12/18 [History Confirmed 10/12/18 Last Taken Unknown] Aspirin [Elias Chewable Aspirin] 81 mg PO DAILY 12/18/18 [History Confirmed 12/18/18 Last Taken Unknown] Furosemide [Lasix] 40 mg PO BID 12/18/18 [History Confirmed 12/18/18 Last Taken Unknown] Potassium Chloride [Kdur] 20 meq PO DAILY 12/18/18 [History Confirmed 12/18/18 Last Taken Unknown] Simvastatin [Zocor] 20 mg PO DAILY 12/18/18 [History Confirmed 12/18/18 Last Taken Unknown] Lisinopril [Zestril] 2.5 mg PO HS #10 tab 12/22/18 [Rx Last Taken Unknown] Metoprolol Succinate [Toprol Xl] 12.5 mg PO DAILY #30 tab.xl.24h 12/22/18 [Rx Last Taken Unknown] Rivaroxaban [Xarelto] 20 mg PO QPMCC #30 tab 12/22/18 [Rx Last Taken Unknown] traMADol [Ultram] 50 mg PO BID PRN #20 tab 12/23/18 [Rx Last Taken Unknown] Medical - DS: Hosp Hospital course: Mr. Bland is a 73 year old M Mr. Bland is a 73 year old M with history of NYHA class III systolic heart failure with EF 30% and recent hospitalization in October and [facility]. [facility] 5 days ago and has since gotten increasingly short of breath along with orthopnea and increasing lower extremity swelling. Over the last 24 hours patient has not been able to get out of bed or function due to profound dyspnea. He lives alone and apparently has been sleeping in a camper outside of his home. With worsening symptoms he presents to the ER. Initial workup was consistent with acute CHF exacerbation on chest imaging. Patient was started on diuretics and subsequently hospitalist service was consulted. At the time of evaluation patient is alert and oriented remarkably short of breath unable to talk in full sentences. Denies associated fever cough productive sputum chills or chest palpitation. Endorses to using NSAIDs for generalized body pain over the last month. He denies excessive salt diet. He further denies missing his regular medications. 12/19-patient doing better. Diuresed over 1600 cc. Intermittently noninvasive ventilation. Clinically improving. Able to talk in full sentences. Improved orthopnea. No overnight fever chills nausea vomiting. No other concerns expressed nursing staff. Start cardiac diet and physical therapy. Case management to coordinate SNF transfer on discharge 12/20- persistent CHF on chest imaging. However over 4000 cc net negative. Continue diuresis. Target additional 4-5 L negative fluid balance. Recommend SNF transfer. Case management to coordinate. No overnight fever chills nausea vomiting or concerns per staff. Persistent lymphedema but improved. Groin rash improving. 12/21 Slept okay after finally falling asleep. Continues to feel tired Has cough and shortness of breath. No chest pain or other complaints. Had a discussion regarding CODE STATUS and patient decided on a DNR status. 12/22 Slept okay. No overnight events. Dry cough. Shortness of breath. No chest pain or other complaints. He is not requiring any supplemental oxygen today. Edema slowly improving more so on the right. 12/23 No overnight events. Doing well. Stable for discharge. Discharge diagnosis: Acute on chronic systolic diastolic heart failure with pulmonary edema and Secondary discharge diagnosis: Acute hypoxic respiratory failure hypertension A. fib CAD congestive hepatopathy chronic anemia chronic kidney disease - Time Spent with Patient Total time spent providing and/or coordinating discharge services: Greater than 30 minutes Medical - DS: Exam - Constitutional Vitals: Vital Signs Temp Pulse Resp BP Pulse Ox 12/22/18 10:01 98.8 F 16 104/78 94 12/22/18 08:57 20 114/72 98 12/22/18 08:00 98.6 F 67 16 118/67 96 12/22/18 07:00 18 106/80 96 12/22/18 06:15 21 94 12/22/18 06:00 20 111/70 95 12/22/18 05:54 20 99 12/22/18 05:01 22 114/81 93 12/22/18 04:01 98.0 F 22 111/92 97 12/22/18 03:12 18 12/22/18 03:01 17 120/77 92 12/22/18 02:14 27 H 90 12/22/18 02:02 20 105/87 91 12/22/18 01:01 22 114/77 90 12/22/18 00:02 98.8 F 19 118/71 91 12/21/18 23:34 19 95 12/21/18 23:02 18 107/54 96 12/21/18 22:02 18 124/67 94 12/21/18 21:01 19 117/82 94 12/21/18 20:01 98.9 F 15 117/58 95 12/21/18 19:14 21 103/71 96 12/21/18 19:01 18 122/109 94 12/21/18 18:01 20 121/75 94 12/21/18 17:01 27 H 102/70 12/21/18 16:21 20 101/82 92 12/21/18 16:02 21 75/65 12/21/18 15:27 14 93 12/21/18 15:13 98.9 F 15 106/50 94 12/21/18 14:28 20 92 12/21/18 13:49 82 92 12/21/18 13:33 19 92 12/21/18 13:01 21 120/64 91 12/21/18 12:02 16 103/61 94 12/21/18 11:24 21 88/58 96 12/21/18 11:13 24 H 74/48 92 12/21/18 11:06 21 67/48 92 Intake and Output 12/21/18 12/22/18 12/22/18 21:59 05:59 13:59 Intake Total 240 Output Total 590 820 470 Balance -350 -820 -470 Intake: Oral 240 Output: Urine Catheter Amount 550 820 470 Void Amount 40 Other: Urine Appearance Clear Hematuria Urine Color Bright Red Dark Red Uretheral (Roque) Blood Tinged Bright Red Bright Red Urine Odor Strong Uretheral (Roque) Normal Normal Normal # Voids 50 Weight 114.487 kg Medical - DS: Data Labs on day of discharge: Labs from last 24 hours 12/22/18 12/22/18 03:33 03:33 WBC 4.0 L RBC 3.52 L Hgb 11.8 L Hct 35.5 L MCV 101.0 H MCH 33.5 MCHC 33.1 RDW 17.0 H Plt Count 117 L MPV 9.1 Total Counted 100 Seg Neutrophils % 52 Band Neutrophils % 6 Lymphocytes % 26 Monocytes % (Manual) 7 Eosinophils % (Manual) 6 Basophils % (Manual) 2 Reactive Lymphocytes 1 Platelet Estimate Decreased A RBC Morphology Abnorm A Anisocytosis 1+ A Macrocytosis 1+ A Sodium 138 Potassium 3.8 Chloride 97 Carbon Dioxide 29 Anion Gap 12.0 BUN 34 H Creatinine 1.0 GFR Calculation 73 Glucose 84 Uric Acid 10.5 H Calcium 8.4 L Phosphorus 2.3 L Magnesium 1.9 Total Bilirubin 3.6 H Direct Bilirubin 2.4 H GGT 197 H AST 69 H ALT 43 H Alkaline Phosphatase 321 H Lactate Dehydrogenase 294 H Total Protein 6.8 Albumin 3.1 L Globulin 3.7 Albumin/Globulin Ratio 0.8 L Triglycerides 47 Preliminary micro results at discharge 12/18/18 16:05 Blood Culture - Preliminary Blood 12/18/18 15:43 Blood Culture - Preliminary Blood Medical - DS: A/P - Patient/Caregiver Discharge Instructions Activity: as per physical therapy Diet: Cardiac Additional Instructions: Follow-up with his medical cost consultant or referral to see one in 7-10 days Follow-up with PCP in 3-7 days Prescriptions: Lisinopril [Zestril] 2.5 mg PO HS #10 tab Metoprolol Succinate [Toprol Xl] 12.5 mg PO DAILY #30 tab.xl.24h Rivaroxaban [Xarelto] 20 mg PO QPMCC #30 tab - Follow up Plan Disposition: Xfer SNF Prognosis: Serious Rehab Potential: Fair I certify that the patient requires SNF services: Yes Overall status at discharge: patient is progressing back to baseline Medical - DS: Qual - VTE Deep Vein Thrombosis/Pulmonary Embolism Present on Admission: No
[2018-12-22] MEDS ORDERED: LORazepam 2 MG/ML VIAL IV PRN (11:09)
[2018-12-22] MEDS ORDERED: ACETAMINOPHEN 1,000 MG/100 ML BOTTLE IV PRN (11:09)
[2018-12-22] MEDS ORDERED: COLCHICINE 0.6 MG TABLET PO PRN (11:09)
[2018-12-22] MEDS ORDERED: ONDANSETRON 4 MG/2 ML VIAL IV PRN (11:09)
[2018-12-22] MEDS ORDERED: POTASSIUM CHLORIDE 20 MEQ PACKET PO PRN (11:09)
[2018-12-22] MEDS ORDERED: MAGNESIUM SULFATE 2 GM/50 ML BAG IV PRN (11:09)
[2018-12-22] MEDS ORDERED: IPRATROPIUM/ALBUTEROL 3 ML AMPUL.NEB NEB PRN (11:09)
[2018-12-22] MEDS ORDERED: RIVAROXABAN 20 MG TABLET PO SCH (17:30)
[2018-12-22] MEDS: ACETAMINOPHEN 325 MG TABLET PO PRN (20:35)
[2018-12-22] MEDS ORDERED: SENNOSIDES/DOCUSATE SODIUM 1 TAB TABLET PO SCH (21:00)
[2018-12-22] MEDS ORDERED: SIMVASTATIN 20 MG TABLET PO SCH (21:00)
[2018-12-23] MEDS: 0.9 % SODIUM CHLORIDE 10 ML SYRINGE IV SCH (05:12)
[2018-12-23 05:58] LABS: ALT/SGPT 50 U/l (0-40); Albumin 3.3 gm/dL (3.2-5.2); Albumin/Globulin Ratio 0.8 (1.0-2.3); Alkaline Phosphatase 347 U/L (39-117); Blood Urea Nitrogen 28 mg/dl (8-23); Gamma Glutamyl Transpeptidase 209 U/L (8-61)
[2018-12-23] MEDS ORDERED: POTASSIUM CHLORIDE 20 MEQ TABLET PO SCH (08:00)
[2018-12-23] MEDS ORDERED: METOPROLOL SUCCINATE 25 MG TAB.XL.24H PO SCH (09:00)
[2018-12-23] MEDS ORDERED: ASPIRIN 81 MG TAB.CHEW PO SCH (09:00)
[2018-12-23] MEDS ORDERED: MULTIVIT,THER IRON,CA,FA & MIN 1 TABLET PO SCH (09:00)
[2018-12-23] MEDS: ACETAMINOPHEN 325 MG TABLET PO PRN (09:16)
[2018-12-23] MEDS: DOCUSATE SODIUM 100 MG CAPSULE PO SCH (09:16)
== END 2018-12-23 12:00 | DRG 291 ==
LOC: ED 15:22 → ICU 18:55
PROVIDERS: ADMIT Internal Medicine; ATTEND Internal Medicine

== ENCOUNTER 2019-03-06 08:37 | Inpatient (IN) ==
[2019-03-06] MEDS ORDERED: 0.9 % SODIUM CHLORIDE 1,000 ML IV ONE (09:03)
[2019-03-06 09:14] LABS: Basophils # (Auto) 0.1 K/mcL (0.0-0.3); Basophils % (Auto) 1.7 % (0.0-2.0); Eosinophils # (Auto) 0.2 K/mcL (0.0-0.7); Eosinophils % (Auto) 2.9 % (0.0-7.0); Granulocytes % (Auto) 63.5 % (38.0-78.0); Hematocrit 40.6 % (41.0-55.0); Hemoglobin 13.3 g/dL (13.5-16.5); Lymphocytes # (Auto) 1.2 K/mcL (1.5-4.8); Lymphocytes % (Auto) 22.8 % (15.5-49.0); Mean Cell Volume 101.8 fL (80.0-100.0); Mean Corpuscular HGB Conc 32.8 g/dL (31.0-36.0); Mean Platelet Volume 8.5 fL (7.4-10.4); Monocytes # (Auto) 0.5 K/mcL (0.1-0.9); Monocytes % (Auto) 9.1 % (1.0-12.0); Platelet Count 156 K/mcL (140-440); RBC 3.99 M/mcL (4.50-5.90); Red Cell Distribution Width 15.4 % (11.5-14.5); WBC 5.3 K/mcL (4.5-11.0)
--- NOTE | 2019-03-06 09:20 | Emergency Department Note ---
Weakness HPI - General Chief complaint: Weakness Stated complaint: Weakness, sob Time Seen by Provider: 03/06/19 09:15 Source: EMS Mode of arrival: EMS Limitations: no limitations - History of Present Illness HPI Narrative: 73-year-old male previously admitted to [facility] in October 2018 with acute decompensated combined systolic and diastolic congestive heart failure with severely poor living conditions, [place] brought via paramedics with 2 week history of progressively worsening weakness, history of chronic drop foot walking with crutches with history of multiple falls, with last fall roughly 2 days ago. In October patient was living in [facility] at the time of admission for a 2 month. Presenting today with decreased appetite, nausea, worsening lower extremity edema with left adam ulcer 2 cm x 2 cm with surrounding circumferential erythema and streaking up the leg, as well as diarrhea 2 days. Patient is disheveled, smelling of urine, and at home had buckets of stool and urine surrounding him according the paramedics. Endorses subjective fevers, myalgias as well as fatigue. No chest pains, no palpitations, mild dyspnea on exertion. - Related Data Home Medications Medication Instructions Recorded Confirmed Acetaminophen [Tylenol 8 Hour] 650 mg PO Q4HP PRN 10/12/18 12/22/18 Allopurinol [Zyloprim] 100 mg PO .COMPLEX 10/12/18 10/12/18 Colchicine [Colcrys] 0.6 mg PO HSP PRN 10/12/18 12/18/18 Metolazone [Zaroxolyn] 2.5 mg PO .COMPLEX 10/12/18 10/12/18 Na Phos,M-B/Na Phos,Di-Ba [Fleets 1 dose LA DAILYP PRN 10/12/18 10/12/18 Adult] Nystatin 15 gm TP BID 10/12/18 10/12/18 Rivaroxaban [Xarelto] 20 mg PO DAILY 10/12/18 10/12/18 Aspirin [Elias Chewable Aspirin] 81 mg PO DAILY 12/18/18 12/18/18 Furosemide [Lasix] 40 mg PO BID 12/18/18 12/18/18 Potassium Chloride [Kdur] 20 meq PO DAILY 12/18/18 12/18/18 Simvastatin [Zocor] 20 mg PO DAILY 12/18/18 12/18/18 Previous Rx's Medication Instructions Recorded Lisinopril [Zestril] 2.5 mg PO HS #10 tab 12/22/18 Metoprolol Succinate [Toprol Xl] 12.5 mg PO DAILY #30 tab.xl.24h 12/22/18 Rivaroxaban [Xarelto] 20 mg PO QPMCC #30 tab 12/22/18 traMADol [Ultram] 50 mg PO BID PRN #20 tab 12/23/18 Allergies Allergy/AdvReac Type Severity Reaction Status Date / Time Penicillins AdvReac Mild Rash Verified 03/06/19 08:37 Review of Systems All systems ED: reviewed and negative except as stated. Past Medical History - Past Medical History Source: old records reviewed, nursing notes reviewed Medical history: Reports: CHF, hypertension - Social History smoking status: Former smoker Alcohol use: Reports: Unknown Drug use: Reports: none Physical Exam Limitations: no limitations General appearance: alert, other (disheveled) Head: atraumatic, normocephalic Eye: Present: normal appearance, PERRL, EOMI ENT: mucous membranes dry, other (crusting around lips) Neck: Present: normal inspection, full ROM Chest: Present: normal inspection, symmetric chest wall rise. Absent: tenderness Respiratory: Present: normal lung sounds bilaterally. Absent: respiratory distress, accessory muscle use, prolonged expiratory phase Cardiovascular: Present: irregular rhythm Abdominal: Present: soft, distention, hypoactive bowel sounds. Absent: tenderness, guarding, rebound, Anne's sign Extremities: Present: pedal edema, pretibial edema (3+ bilaterally) Lower leg: Present: other (left adam ulcer with surrounding purulent crusting, erythema circumferentially as well as streaking up into left knee, 3+ b/l pedal edema) Course Vital Signs Temperature 97.7 F 03/06/19 08:38 Pulse Rate 73 03/06/19 08:38 Respiratory Rate 20 03/06/19 08:38 Blood Pressure 139/92 03/06/19 08:38 Pulse Oximetry (%) 97 03/06/19 08:38 Temperature 97.7 F 03/06/19 08:38 Pulse Rate 61 03/06/19 10:15 Respiratory Rate 22 03/06/19 10:15 Blood Pressure 116/84 03/06/19 10:03 Pulse Oximetry (%) 94 03/06/19 10:15 Weakness - MDM Narrative Medical decision making narrative: Patient presenting with weakness, myalgias, nausea, no appetite in 2 days, with severe edema and left adam grade 3 ulcer with surrounding erythema. Patient afebrile, normotensive on admit saturating at 94% on RA. Patient not meeting SIRS nor qSOFA criteria, Wound cultured, pending. CBC no leukocytosis, with BMP 1.2, GFR in stage II CKD range, troponin 0.02. XR chest demonstrating pattern of cardiomegaly, no appreciable Rachael B lines. EKG demonstrating stable pattern of atrial fibrillation with left bundle branch block, not meeting Scarbossa's criteria. Previous echo 07/2018 with 30-35% EF with regional wall motion abnormalities, grade 3 diastolic dysfunction. Patient admitted with cellulitis and acute CHF exacerbation. - Lab Data Lab results reviewed: Yes I reviewed the patient's lab results. Result diagrams: 03/06/19 08:42 03/06/19 08:42 Lab Results 03/06/19 03/06/19 03/06/19 Range/Units 08:36 08:42 08:42 WBC 5.3 (4.5-11.0) K/mcL RBC 3.99 L (4.50-5.90) M/mcL Hgb 13.3 L (13.5-16.5) g/dL Hct 40.6 L (41.0-55.0) % MCV 101.8 H (80.0-100.0) fL MCH 33.4 (26.0-34.0) pg MCHC 32.8 (31.0-36.0) g/dL RDW 15.4 H (11.5-14.5) % Plt Count 156 (140-440) K/mcL MPV 8.5 (7.4-10.4) fL Gran % 63.5 (38.0-78.0) % Lymph % (Auto) 22.8 (15.5-49.0) % [place] % (Auto) 9.1 (1.0-12.0) % Eos % (Auto) 2.9 (0.0-7.0) % Baso % (Auto) 1.7 (0.0-2.0) % Gran # 3.4 (1.8-8.0) K/mcL Lymph # (Auto) 1.2 L (1.5-4.8) K/mcL [place] # (Auto) 0.5 (0.1-0.9) K/mcL Eos # (Auto) 0.2 (0.0-0.7) K/mcL Baso # (Auto) 0.1 (0.0-0.3) K/mcL ESR 16 H (0-15) mm/hr Sodium 140 (133-145) mmol/L Potassium 4.4 (3.3-5.1) mmol/L Chloride 105 (96-108) mmol/L Carbon Dioxide 18 L (22-30) mmol/L Anion Gap 17.0 H (8-16) BUN 26 H (8-23) mg/dl Creatinine 1.2 (0.7-1.2) mg/dl GFR Calculation 59 Glucose 79 (70-105) mg/dL Calcium 8.9 (8.6-10.4) mg/dl Total Bilirubin 2.0 H (0.0-1.0) mg/dL AST 29 (0-37) U/l ALT 20 (0-40) U/l Alkaline Phosphatase 263 H (39-117) U/L Total Creatine Kinase (24-195) IU/L CK-MB (CK-2) (0-4.9) ng/ml Myoglobin (28-72) ng/ml Troponin T (0-0.03) ng/ml NT-Pro-B Natriuret Pep (0-450) pg/ml Total Protein 8.0 (5.9-8.4) gm/dL Albumin 3.9 (3.2-5.2) gm/dL Globulin 4.1 H (2.2-3.7) gm/dL Albumin/Globulin Ratio 1.0 (1.0-2.3) 03/06/19 03/06/19 Range/Units 08:42 08:42 WBC (4.5-11.0) K/mcL RBC (4.50-5.90) M/mcL Hgb (13.5-16.5) g/dL Hct (41.0-55.0) % MCV (80.0-100.0) fL MCH (26.0-34.0) pg MCHC (31.0-36.0) g/dL RDW (11.5-14.5) % Plt Count (140-440) K/mcL MPV (7.4-10.4) fL Gran % (38.0-78.0) % Lymph % (Auto) (15.5-49.0) % Rosebud % (Auto) (1.0-12.0) % Eos % (Auto) (0.0-7.0) % Baso % (Auto) (0.0-2.0) % Gran # (1.8-8.0) K/mcL Lymph # (Auto) (1.5-4.8) K/mcL Rosebud # (Auto) (0.1-0.9) K/mcL Eos # (Auto) (0.0-0.7) K/mcL Baso # (Auto) (0.0-0.3) K/mcL ESR (0-15) mm/hr Sodium (133-145) mmol/L Potassium (3.3-5.1) mmol/L Chloride (96-108) mmol/L Carbon Dioxide (22-30) mmol/L Anion Gap (8-16) BUN (8-23) mg/dl Creatinine (0.7-1.2) mg/dl GFR Calculation Glucose (70-105) mg/dL Calcium (8.6-10.4) mg/dl Total Bilirubin (0.0-1.0) mg/dL AST (0-37) U/l ALT (0-40) U/l Alkaline Phosphatase (39-117) U/L Total Creatine Kinase 72 (24-195) IU/L CK-MB (CK-2) 3.7 (0-4.9) ng/ml Myoglobin 113 H (28-72) ng/ml Troponin T 0.02 (0-0.03) ng/ml NT-Pro-B Natriuret Pep 15298.0 H (0-450) pg/ml Total Protein (5.9-8.4) gm/dL Albumin (3.2-5.2) gm/dL Globulin (2.2-3.7) gm/dL Albumin/Globulin Ratio (1.0-2.3) - Radiology Data Radiology results reviewed: Yes I reviewed the patient's radiology results. Disposition Pt seen by MACHINE SPECIALIST/PA only: No Clinical Impression: CHF exacerbation Qualifiers: Heart failure type: combined systolic and diastolic Qualified Code(s): I50.43 - Acute on chronic combined systolic (congestive) and diastolic (congestive) heart failure Cellulitis Qualifiers: Site of cellulitis: extremity Site of cellulitis of extremity: lower extremity Laterality: left Qualified Code(s): L03.116 - Cellulitis of left lower limb Disposition: Xfer As Inpt ([facility]) Condition: Fair Referrals: Laverne Pierre MD [Primary Care Provider] -
--- NOTE | 2019-03-06 09:20 | XRay Report ---
INDICATION: Dyspnea, cough, weakness. History of congestive heart failure TECHNIQUE: AP chest x-ray,portable semiupright COMPARISON: Previous chest x-rays dated 12/22/2018, 12/20/2018, 12/18/2018, 10/12/2018, 01/21/2015 FINDINGS:Previous median sternotomy There is cardiomegaly. Pulmonary vascularity is prominent with upper lobe redistribution. There is diffuse abnormality consistent with pulmonary edema. Radiographic appearance is essentially unchanged since 12/22/2018 consistent with chronic or recurrent congestive heart failure. No focal pulmonary parenchymal consolidation. IMPRESSION: 1. Cardiomegaly and findings consistent with congestive heart failure. 2. No definite interval change since 12/22/2018 Interpreted and Authenticated by: Bret Boles 03/06/19
[2019-03-06] MEDS ORDERED: SULFAMETHOXAZOLE/TRIMETHOPRIM 1 TABLET PO ONE (09:26)
[2019-03-06 09:39] LABS: ALT/SGPT 20 U/l (0-40); AST/SGOT 29 U/l (0-37); Albumin 3.9 gm/dL (3.2-5.2); Alkaline Phosphatase 263 U/L (39-117); Blood Urea Nitrogen 26 mg/dl (8-23); Calcium 8.9 mg/dl (8.6-10.4); Carbon Dioxide 18 mmol/L (22-30); Chloride 105 mmol/L (96-108); Globulin 4.1 gm/dL (2.2-3.7); Glomerular Filtration Rate 59; Glucose 79 mg/dL (70-105); Potassium 4.4 mmol/L (3.3-5.1); Sodium 140 mmol/L (133-145)
[2019-03-06 09:42] LABS: Creatine Kinase MB 3.7 ng/ml (0-4.9)
[2019-03-06] MEDS ORDERED: FUROSEMIDE 40 MG/4 ML VIAL IV ONE (10:25)
[2019-03-06 10:40] LABS: Appearance,Urine HAZY; Bacteria,Urine 0 /hpf (0); Bilirubin,Urine NEG (NEG); Color,Urine YELLOW; Culture Indicated,Urine NO; Glucose,Urine (UA) NEGATIVE (NEG); Ketones,Urine 5/TR mg/dL (NEG); Leukocyte Esterase,Urine NEG /uL (NEG); Mucus,Urine MANY /hpf (0); Nitrate,Urine NEG (NEG); Protein,Urine 30 mg/dL (NEG); Specific Gravity,Urine 1.016 (1.000-1.035); Urine Blood NEG mg/dL (<0.03); Urine Granular Cast 1 /lpf (0); Urine Hyaline Cast 46 /lpf (0-2); Urine RBC 1 /hpf (0-1); Urine Squamous Epithelial Cell 1 /hpf (0-4); Urine Transitional Epi Cells < 1 /hpf (0-2); Urine WBC 2 /hpf (0-4); Urobilinogen,Urine NEG (NEG)
--- NOTE | 2019-03-06 11:16 | Internal Med History&Physical ---
Medical - H&P: [facility] Patient information: Note initiated : 03/06/19 at 11:12 am Service Date, if different from initiated Date: [] Patient: Liz Bland a 73 y/o M admitted on for Weakness, SOB. Chief Complaint: [] History of present illness: Mr. Bland is a 73 year old M Presents to the ED with weakness and shortness of breath. Generalized weakness. Inability to care for himself at home. Patient has significant comorbidities many hospitalizations. He has been hospitalized 6 times since July relating to heart failure and conditions were relating to underlying heart disease. He called EMS because he was had increasing shortness of breath last night. He sleeps on his side because he sleeps flat on his back he has orthopnea and this is normal for him. However last night his shortness of breath was worsening. He also had pain in his legs. He says the swelling in his legs is similar to what it always is. He has occasional cough that is not new. He injured his leg getting to bed in the past and has an ulcer on his left lower extremity. He lives in a camper on his property. He also has diarrhea for the past couple days. Paramedics reported buckets of stool and urine surrounding him in the camper. In the ED he is evaluated including chest x-ray which showed pulmonary edema his oxygen saturation was down to 89 on room air. Found to have a large ulcer on his left adam. Review of Systems: Pertinent positives as above. Denies headache/fever/chills/nausea/vomiting/chest or abdominal pain. Remaining 10 point review of systems reviewed negative Medical - H&P: PMH Medical history: Past medical history: Obesity Neuropathy Diastolic systolic heart failure with an EF of 40-45 and grade 3 diastolic H fibrillation on beta-chelo and Xarelto Chronic kidney disease stage II-III History of CAD with CABG Gout Past surgical history: Valve replacement CABG Family: mother heart disease father in World War II Social history: Patient quit smoking 50 years ago denies alcohol use ablates with walker lives in a camper on [place] Medical - H&P: Meds Home Medications Medication Instructions Recorded Confirmed Type Acetaminophen [Tylenol 8 Hour] 650 mg PO Q4HP PRN 10/12/18 12/22/18 History Allopurinol [Zyloprim] 100 mg PO .COMPLEX 10/12/18 10/12/18 History Colchicine [Colcrys] 0.6 mg PO HSP PRN 10/12/18 12/18/18 History Metolazone [Zaroxolyn] 2.5 mg PO .COMPLEX 10/12/18 10/12/18 History Na Phos,M-B/Na Phos,Di-Ba [Fleets 1 dose OK DAILYP PRN 10/12/18 10/12/18 History Adult] Nystatin 15 gm TP BID 10/12/18 10/12/18 History Rivaroxaban [Xarelto] 20 mg PO DAILY 10/12/18 10/12/18 History Aspirin [Elias Chewable Aspirin] 81 mg PO DAILY 12/18/18 12/18/18 History Furosemide [Lasix] 40 mg PO BID 12/18/18 12/18/18 History Potassium Chloride [Kdur] 20 meq PO DAILY 12/18/18 12/18/18 History Simvastatin [Zocor] 20 mg PO DAILY 12/18/18 12/18/18 History Lisinopril [Zestril] 2.5 mg PO HS #10 tab 12/22/18 Rx Metoprolol Succinate [Toprol Xl] 12.5 mg PO DAILY #30 tab.xl.24h 12/22/18 Rx Rivaroxaban [Xarelto] 20 mg PO QPMCC #30 tab 12/22/18 Rx traMADol [Ultram] 50 mg PO BID PRN #20 tab 12/23/18 Rx Allergies Allergy/AdvReac Type Severity Reaction Status Date / Time Penicillins AdvReac Mild Rash Verified 03/06/19 08:37 Medical - H&P: Exam - Constitutional Vitals: Temp Pulse Resp BP Pulse Ox 97.7 F 69 22 113/86 96 03/06/19 08:38 03/06/19 10:40 03/06/19 10:40 03/06/19 10:31 03/06/19 10:40 Exam: General: Alert, Awake, No acute Distress, stable, obese Eyes/N/T: EOMI, PEERL, Head/Neck: neck supple, normocephalic atraumatic, unable to assess JVD given his bustillo and adipose CV: irreg irreg, No murmurs, Pulm: mild b/l rales, no wheezing Abd: soft, rotund, nontender, +BS x4 Ext: Bilateral lower extremity edema 3-4+, large left anterior adam ulcer, venous stasis changes Neuro: Alert, no focal deficits, moves all extremities, CN 2-12 grossly intact, symmetrical strength b/l upper/lower, sensations intact b/l upper/lower Skin: warm/dry Medical - H&P: Reslt - Labs CBC & Chem 7: 03/06/19 08:42 03/06/19 08:42 Labs: Short CBC 03/06/19 Range/Units 08:42 WBC 5.3 (4.5-11.0) K/mcL Hgb 13.3 L (13.5-16.5) g/dL Hct 40.6 L (41.0-55.0) % Plt Count 156 (140-440) K/mcL BMP 03/06/19 08:42 Sodium 140 Potassium 4.4 Chloride 105 Carbon Dioxide 18 L BUN 26 H Creatinine 1.2 Glucose 79 Calcium 8.9 Cardiac Enzymes 03/06/19 03/06/19 Range/Units 08:42 08:42 Total Creatine Kinase 72 (24-195) IU/L CK-MB (CK-2) 3.7 (0-4.9) ng/ml Troponin T 0.02 (0-0.03) ng/ml Liver Function 03/06/19 Range/Units 08:42 Total Bilirubin 2.0 H (0.0-1.0) mg/dL AST 29 (0-37) U/l ALT 20 (0-40) U/l Alkaline Phosphatase 263 H (39-117) U/L Albumin 3.9 (3.2-5.2) gm/dL Urine 03/06/19 Range/Units 10:00 Urine Color Yellow Urine Appearance Hazy Urine pH 5.0 (5.0-9.0) Ur Specific [place] 1.016 (1.000-1.035) Urine Protein 30 A (NEG) mg/dL Urine Glucose (UA) Negative (NEG) mg/dL - Impressions Chest x-ray pulmonary edema Medical - H&P: A/P - Narrative A/P Narrative: A: *Acute on chronic systolic/diastolic CHF w/pulmonary edema & Right side Heart Failure: -December echo EF 40-45 (EF 30% on echo in July 2018), RV systolic fxn moderately reduced, diastolic dysfxn *Generalized weakness/deconditioning/inability to care for himself at home : *LLE ulcer and venous stasis changes / lymphedema: *Atrial fibrillation: rate controlled, anticoagulation on rivaroxaban -on BB and Xaralto *h/o CAD w/CABG: continue aspirin and statin [place] inhibitor and beta chelo. *Anemia, chronic: *CKD II-III: *Diarrhea: *History of gout continue colchicine/allopurinol *Goals of care: 6 hospitalizations in the past 6 months. Continue decline, poor prognosis, significant comorbidities. -Did discuss hospice with him and he was amenable to consultation Plan: -IV lasix 40tid with home metolazone -monitor i/o & weights -Continue fluid restriction/low salt diet, CHF education -wean off O2 -cont BB/xaralto, ASA/Statin, low-dose ACEI hold today -PT/OT, nutritional support -f/u with cardio outpt -leg wraps -Hospice eval -stool studies -wound care -ppx: Rivaroxaban No Code
[2019-03-06] MEDS ORDERED: POTASSIUM CHLORIDE 20 MEQ TABLET PO PRN ×2 (13:13)
[2019-03-06] MEDS ORDERED: POTASSIUM CHLORIDE 40 MEQ in DEXTROSE 5% IN WATER 500 ML IV PRN (13:13)
[2019-03-06] MEDS ORDERED: ONDANSETRON 4 MG/2 ML VIAL IV PRN (13:13)
[2019-03-06] MEDS ORDERED: PROMETHAZINE 25 MG TABLET PO PRN (13:13)
[2019-03-06] MEDS ORDERED: MAGNESIUM SULFATE 2 GM/50 ML BAG IV PRN (13:13)
[2019-03-06] MEDS ORDERED: IPRATROPIUM/ALBUTEROL 3 ML AMPUL.NEB NEB PRN (13:13)
[2019-03-06] MEDS: HYDROCHLOROTHIAZIDE 12.5 MG CAPSULE PO SCH (14:08)
[2019-03-06] MEDS: 0.9 % SODIUM CHLORIDE 10 ML SYRINGE IV SCH ×2 (14:08→21:39)
[2019-03-06] MEDS: FUROSEMIDE 40 MG TABLET PO SCH ×2 (14:08→21:00)
[2019-03-06] MEDS ORDERED: LOPERAMIDE 2 MG CAPSULE PO PRN (19:15)
[2019-03-06] MEDS ORDERED: traMADol 50 MG TABLET PO PRN (19:58)
[2019-03-06] MEDS ORDERED: LISINOPRIL 10 MG TABLET PO SCH (21:00)
[2019-03-06] MEDS ORDERED: FUROSEMIDE 80 MG TABLET PO SCH (21:00)
[2019-03-06] MEDS: FUROSEMIDE 40 MG/4 ML VIAL IV SCH ×2 (21:38→21:39)
[2019-03-06] MEDS: ACETAMINOPHEN 325 MG TABLET PO PRN (21:44)
[2019-03-07] MEDS: 0.9 % SODIUM CHLORIDE 10 ML SYRINGE IV SCH ×3 (05:23→21:52)
[2019-03-07] MEDS: FUROSEMIDE 40 MG/4 ML VIAL IV SCH ×2 (05:27→14:20)
[2019-03-07] MEDS ORDERED: METOLAZONE 2.5 MG TABLET PO SCH (05:30)
[2019-03-07 06:11] LABS: Basophils # (Auto) 0 K/mcL (0.0-0.3); Eosinophils # (Auto) 0.3 K/mcL (0.0-0.7); Eosinophils % (Auto) 6.6 % (0.0-7.0); Granulocytes % (Auto) 56.5 % (38.0-78.0); Hematocrit 34.3 % (41.0-55.0); Hemoglobin 11.3 g/dL (13.5-16.5); Lymphocytes % (Auto) 21.3 % (15.5-49.0); Mean Cell Volume 101.6 fL (80.0-100.0); Mean Corpuscular HGB Conc 32.9 g/dL (31.0-36.0); Mean Platelet Volume 8.2 fL (7.4-10.4); Monocytes # (Auto) 0.7 K/mcL (0.1-0.9); Monocytes % (Auto) 14.6 % (1.0-12.0); Platelet Count 137 K/mcL (140-440); RBC 3.37 M/mcL (4.50-5.90); WBC 4.7 K/mcL (4.5-11.0)
[2019-03-07 06:46] LABS: ALT/SGPT 15 U/l (0-40); AST/SGOT 20 U/l (0-37); Albumin 3.6 gm/dL (3.2-5.2); Alkaline Phosphatase 225 U/L (39-117); Bilirubin,Direct 0.5 mg/dL (0.0-0.3); Bilirubin,Total 1.1 mg/dL (0.0-1.0); Blood Urea Nitrogen 30 mg/dl (8-23); Calcium 8.7 mg/dl (8.6-10.4); Carbon Dioxide 21 mmol/L (22-30); Chloride 104 mmol/L (96-108); Globulin 3.6 gm/dL (2.2-3.7); Glomerular Filtration Rate 59; Glucose 78 mg/dL (70-105); Lactate Dehydrogenase 230 U/L (94-250); Magnesium 1.9 mg/dL (1.6-2.5); Phosphorous 3.6 mg/dL (2.7-4.5); Potassium 3.6 mmol/L (3.3-5.1); Sodium 140 mmol/L (133-145); Triglycerides 65 mg/dl (<150); Uric Acid 9.6 mg/dL (2.5-8.0)
[2019-03-07] MEDS: POTASSIUM CHLORIDE 20 MEQ TABLET PO SCH (07:47)
[2019-03-07] MEDS ORDERED: CARVEDILOL 3.125 MG TABLET PO SCH (08:00)
--- NOTE | 2019-03-07 08:10 | Internal Med Progress Note ---
Medical - PN: Subj Patient information: Note initiated : 03/07/19 at 8:03 am Service Date, if different from initiated Date: [] Patient: Liz Bland a 73 y/o M admitted on 03/06/19 for Weakness, SOB. Chief Complaint: [] Interval history: Mr. Bland is a 73 year old M Presents to the ED with weakness and shortness of breath. Generalized weakness. Inability to care for himself at home. Patient has significant comorbidities many hospitalizations. He has been hospitalized 6 times since July relating to heart failure and conditions were relating to underlying heart disease. He called EMS because he was had increasing shortness of breath last night. He sleeps on his side because he sleeps flat on his back he has orthopnea and this is normal for him. However last night his shortness of breath was worsening. He also had pain in his legs. He says the swelling in his legs is similar to what it always is. He has occasional cough that is not new. He injured his leg getting to bed in the past and has an ulcer on his left lower extremity. He lives in a camper on his property. He also has diarrhea for the past couple days. Paramedics reported buckets of stool and urine surrounding him in the camper. In the ED he is evaluated including chest x-ray which showed pulmonary edema his oxygen saturation was down to 89 on room air. Found to have a large ulcer on his left adam. 03/07 Slept well. Feeling better today. Able to transfer more easily. He is able lift his legs off the bed now. Feels his swelling in his legs is also improved. Review of Systems: denies headache/fever/chills/nausea/vomiting/chest or abdominal pain. Otherwise see above. - Constitutional Vitals: Vital Signs Temp Pulse Resp BP Pulse Ox 97.1 F 69 24 H 132/95 95 03/07/19 06:31 03/07/19 04:00 03/07/19 06:31 03/07/19 06:31 03/07/19 06:31 Period Temp Pulse Resp BP Sys/Levin Pulse Ox Last 24 Hr 97.1 F-98.5 F 49-90 15-31 110-156/69-106 84-100 Intake and Output 03/06/19 03/07/19 03/07/19 21:59 05:59 13:59 Intake Total 470 240 Output Total 873 5045 436 Balance -943 -8987 -963 Weight 117.979 kg Intake & Output: Intake & Output 03/06/19 03/07/19 03/07/19 21:59 05:59 13:59 Intake Total 470 240 Output Total 871 3351 343 Balance -976 -3520 -402 Weight 117.979 kg Intake: Oral 470 240 Output: Urine Catheter Amount 1729 330 Void Amount 775 Urine/Stool Mix 100 Other: Meal Dinner Percent of Meal Consumed 100% Feeding Ability Independent Urine Appearance Clear Clear Clear Urine Color Bright Yellow Pale Straw Urine Odor Normal Normal Normal Stool Size Smear Stool Color Brown Yellow Stool Consistency Liquid # Voids 1 # Bowel Movements 1 Exam: General: Alert, Awake, No acute Distress, stable, obese Eyes/N/T: EOMI, Head/Neck: neck supple, CV: irreg irreg, No murmurs, Pulm: minimal bibase b/l rales, no wheezing Abd: soft, rotund, nontender, +BS x4 Ext: Bilateral lower extremity edema 2-3+, large left anterior adam ulcer, venous stasis changes Neuro: Alert, no focal deficits, moves all extremities, Skin: warm/dry Medical - PN: Obj Da - Labs CBC & Chem 7: 03/07/19 03:40 03/07/19 03:40 Labs: Abnormal Lab Results 03/07/19 03/07/19 03/06/19 03:40 03:40 10:00 RBC 3.37 L Hgb 11.3 L Hct 34.3 L MCV 101.6 H RDW 15.0 H Plt Count 137 L [place] % (Auto) 14.6 H Lymph # (Auto) 1.0 L ESR Carbon Dioxide 21 L Anion Gap BUN 30 H Uric Acid 9.6 H Total Bilirubin 1.1 H Direct Bilirubin 0.5 H GGT 66 H Alkaline Phosphatase 225 H Myoglobin NT-Pro-B Natriuret Pep Globulin Urine Protein 30 A Urine Ketones 5/tr A Hyaline Casts 46 H Granular Casts 1 H Urine Mucus Many A 03/06/19 03/06/19 03/06/19 08:42 08:42 08:42 RBC 3.99 L Hgb 13.3 L Hct 40.6 L MCV 101.8 H RDW 15.4 H Plt Count [place] % (Auto) Lymph # (Auto) 1.2 L ESR Carbon Dioxide 18 L Anion Gap 17.0 H BUN 26 H Uric Acid Total Bilirubin 2.0 H Direct Bilirubin GGT Alkaline Phosphatase 263 H Myoglobin 113 H NT-Pro-B Natriuret Pep 71267.0 H Globulin 4.1 H Urine Protein Urine Ketones Hyaline Casts Granular Casts Urine Mucus 03/06/19 08:36 RBC Hgb Hct MCV RDW Plt Count [place] % (Auto) Lymph # (Auto) ESR 16 H Carbon Dioxide Anion Gap BUN Uric Acid Total Bilirubin Direct Bilirubin GGT Alkaline Phosphatase Myoglobin NT-Pro-B Natriuret Pep Globulin Urine Protein Urine Ketones Hyaline Casts Granular Casts Urine Mucus Meds: Medications Acetaminophen (Tylenol) 650 mg PO Q6HP PRN PRN Reason: PAIN/FEVER > 101 Last Admin: 03/06/19 21:44 Dose: 650 mg Documented by: Albuterol/Ipratropium (Duoneb) 3 ml NEB Q4HP PRN PRN Reason: Shortness Of Breath Allopurinol (Zyloprim) 100 mg PO MoWeFr@0900 [facility] Aspirin (Aspirin) 81 mg PO DAILY [facility] Carvedilol (Coreg) 3.125 mg PO BIDCC [facility] Last Admin: 03/07/19 07:47 Dose: 3.125 mg Documented by: Furosemide (Lasix) 40 mg IV Q8 [facility] Last Admin: 03/07/19 05:27 Dose: 40 mg Documented by: Hydrochlorothiazide (Oretic) 12.5 mg PO DAILY [facility] Last Admin: 03/06/19 14:08 Dose: 12.5 mg Documented by: Potassium Chloride 40 meq/ (Dextrose) 520 mls @ 130 mls/hr IV UD PRN PRN Reason: Potassium < 3 Magnesium Sulfate (Magnesium Sulfate) 2 gm in 50 mls @ 50 mls/hr IV UD PRN PRN Reason: Magnesium </= 1.6 Lisinopril (Zestril) 10 mg PO [facility] Last Admin: 03/06/19 21:38 Dose: 10 mg Documented by: Loperamide HCl (Imodium) 2 mg PO PRN PRN PRN Reason: Diarrhea Last Admin: 03/06/19 21:38 Dose: 2 mg Documented by: Metolazone (Zaroxolyn) 2.5 mg PO Q48@0530 [facility] Last Admin: 03/07/19 05:05 Dose: 2.5 mg Documented by: Metoprolol Succinate (Toprol Xl) 12.5 mg PO DAILY [facility] Ondansetron HCl (Zofran) 4 mg IV Q4HP PRN PRN Reason: Nausea And Vomiting Potassium Chloride (Kdur) 40 meq PO UD PRN PRN Reason: Potssium is 3-3.5 Potassium Chloride (Kdur) 40 meq PO UD PRN PRN Reason: Potassium < 3 Potassium Chloride (Kdur) 20 meq PO QAMCC [facility] Last Admin: 03/07/19 07:47 Dose: 20 meq Documented by: Promethazine HCl (Phenergan) 0 mg PO Q6HP PRN PRN Reason: Nausea And Vomiting Rivaroxaban (Xarelto) 20 mg PO QPMCC [facility] Simvastatin (Zocor) 20 mg PO HS [facility] Sodium Chloride (Saline Flush) 10 ml IV Q8 [facility] Last Admin: 03/07/19 05:23 Dose: 10 ml Documented by: Tramadol HCl (Ultram) 50 mg PO BIDP PRN PRN Reason: Pain Medical - PN: A/P - Time Spent With Patient Total time spent is greater than 50% in coordination of care (as documented) at patient's floor/unit and/or counseling patient: - Narrative A/P Narrative: A: *Acute on chronic systolic/diastolic CHF w/pulmonary edema & Right side Heart Failure: -December echo EF 40-45 (EF 30% on echo in July 2018), RV systolic fxn moderately reduced, diastolic dysfxn *Generalized weakness/deconditioning/inability to care for himself at home : *LLE ulcer/infection with venous stasis changes / lymphedema: -wound growing Staph/GNB *Atrial fibrillation: rate controlled, anticoagulation on rivaroxaban -on BB and Xaralto *h/o CAD w/CABG: continue aspirin/statin/ACEI/BB *Anemia, chronic: *CKD II-III: *Diarrhea: c. diff neg *History of gout continue colchicine/allopurinol *Goals of care: 6 hospitalizations in the past 6 months. Continue decline, poor prognosis, significant comorbidities. -Did discuss hospice with him and he was amenable to consultation Plan: -IV lasix 40tid with home metolazone -monitor i/o & weights -Continue fluid restriction/low salt diet, CHF education -cont BB/xaralto, ASA/Statin, lACEI -PT/OT, nutritional support -f/u with cardio outpt -leg wraps/elevate -Hospice eval -Rocephin (MRSA screen neg, no h/o), pending final wound cx -prn imodium -wound care -Medications: s/b on Toprol instead of Coreg, Coreg was stopped last admission because he has had several hospital visitations for hypotension. And lisinopril was decreased at that time -ppx: Rivaroxaban No Code
--- NOTE | 2019-03-07 08:14 | XRay Report ---
INDICATION: Peripheral edema TECHNIQUE: AP chest x-ray,portable semiupright COMPARISON: Previous examinations dated 03/06/2019, 12/22/2018, 12/20/2018 FINDINGS:Previous median sternotomy. System cardiomegaly. Pulmonary vascularity remains prominent. Pulmonary edema pattern appears slightly improved. No new abnormalities. IMPRESSION: 1. Cardiomegaly and congestive heart failure 2. Slight interval improvement since 03/06/2019 Interpreted and Authenticated by: Bret Boles 03/07/19
[2019-03-07] MEDS ORDERED: METOPROLOL SUCCINATE 25 MG TAB.XL.24H PO SCH (09:00)
[2019-03-07] MEDS: cefTRIAXone 1 GM VIAL IV SCH (09:49)
[2019-03-07] MEDS: HYDROCHLOROTHIAZIDE 12.5 MG CAPSULE PO SCH (09:49)
[2019-03-07] MEDS: ASPIRIN 81 MG TAB.CHEW PO SCH (09:49)
[2019-03-07] MEDS: RIVAROXABAN 20 MG TABLET PO SCH (17:12)
[2019-03-07] MEDS: SIMVASTATIN 20 MG TABLET PO SCH (21:52)
[2019-03-08] MEDS: ACETAMINOPHEN 325 MG TABLET PO PRN (03:06)
[2019-03-08] MEDS: 0.9 % SODIUM CHLORIDE 10 ML SYRINGE IV SCH ×3 (06:05→22:09)
[2019-03-08 06:40] LABS: ALT/SGPT 13 U/l (0-40); AST/SGOT 19 U/l (0-37); Albumin 3.5 gm/dL (3.2-5.2); Alkaline Phosphatase 219 U/L (39-117); Bilirubin,Direct 0.4 mg/dL (0.0-0.3); Blood Urea Nitrogen 32 mg/dl (8-23); Calcium 8.5 mg/dl (8.6-10.4); Carbon Dioxide 24 mmol/L (22-30); Chloride 100 mmol/L (96-108); Globulin 3.5 gm/dL (2.2-3.7); Glomerular Filtration Rate 53; Glucose 73 mg/dL (70-105); Lactate Dehydrogenase 207 U/L (94-250); Magnesium 1.7 mg/dL (1.6-2.5); Phosphorous 3.7 mg/dL (2.7-4.5); Potassium 3.7 mmol/L (3.3-5.1); Sodium 138 mmol/L (133-145); Triglycerides 53 mg/dl (<150); Uric Acid 10.2 mg/dL (2.5-8.0)
[2019-03-08] MEDS: POTASSIUM CHLORIDE 20 MEQ TABLET PO SCH (07:20)
--- NOTE | 2019-03-08 07:55 | Internal Med Progress Note ---
Medical - PN: Subj Patient information: Note initiated : 03/08/19 at 7:49 am Service Date, if different from initiated Date: [] Patient: Liz Bland a 73 y/o M admitted on 03/06/19 for Weakness, SOB. Chief Complaint: [] Interval history: Mr. Bland is a 73 year old M Presents to the ED with weakness and shortness of breath. Generalized weakness. Inability to care for himself at home. Patient has significant comorbidities many hospitalizations. He has been hospitalized 6 times since July relating to heart failure and conditions were relating to underlying heart disease. He called EMS because he was had increasing shortness of breath last night. He sleeps on his side because he sleeps flat on his back he has orthopnea and this is normal for him. However last night his shortness of breath was worsening. He also had pain in his legs. He says the swelling in his legs is similar to what it always is. He has occasional cough that is not new. He injured his leg getting to bed in the past and has an ulcer on his left lower extremity. He lives in a camper on [place]. He also has diarrhea for the past couple days. Paramedics reported buckets of stool and urine surrounding him in the camper. In the ED he is evaluated including chest x-ray which showed pulmonary edema his oxygen saturation was down to 89 on room air. Found to have a large ulcer on his left adam. 03/07 Slept well. Feeling better today. Able to transfer more easily. He is able lift his legs off the bed now. Feels his swelling in his legs is also improved. 03/08 Feeling much better today even. Strength much improved. Has osteoarthritic pain in his hips and shoulders, otherwise no new complaints. Diuresing quite a bit. On room air. Review of Systems: denies headache/fever/chills/nausea/vomiting/chest or abdominal pain. Otherwise see above. - Constitutional Vitals: Vital Signs Temp Pulse Resp BP Pulse Ox 97.3 F 64 24 H 120/81 90 03/07/19 12:00 03/07/19 20:11 03/07/19 12:00 03/08/19 03:16 03/08/19 00:15 Period Temp Pulse Resp BP Sys/Levin Pulse Ox Last 24 Hr 97.3 F 58-64 24 88-120/49-101 90-100 Intake and Output 03/07/19 03/08/19 03/08/19 21:59 05:59 13:59 Intake Total 485 440 Output Total 2099 1949 Balance -1615 -1510 Weight 112.264 kg Intake & Output: Intake & Output 03/07/19 03/08/19 03/08/19 21:59 05:59 13:59 Intake Total 485 440 Output Total 2099 1949 Balance -1615 -1510 Weight 112.264 kg Intake: Nourishment/Supplement quantity 125 (ml) Oral 360 440 Output: Urine Catheter Amount 2099 1949 Other: Meal Dinner Percent of Meal Consumed 100% Nourishment/Supplement name Banitrol Urine Appearance Clear Uretheral (Roque) Clear Urine Color Straw Uretheral ([place]) Straw Stool Size Small Stool Color Brown Yellow Stool Consistency Soft Exam: General: Alert, Awake, No acute Distress, stable, obese Eyes/N/T: EOMI, Head/Neck: neck supple, CV: irreg irreg, No murmurs, Pulm: No harris rales at the bases today, no wheezing Abd: soft, rotund, nontender, +BS x4 Ext: Bilateral lower extremity edema, large left anterior adam ulcer, venous stasis changes Neuro: Alert, no focal deficits, moves all extremities, Skin: warm/dry Medical - PN: Obj Da - Labs CBC & Chem 7: 03/07/19 03:40 03/08/19 03:45 Labs: Abnormal Lab Results 03/08/19 03/07/19 03/07/19 03:45 03:40 03:40 RBC 3.37 L Hgb 11.3 L Hct 34.3 L MCV 101.6 H RDW 15.0 H Plt Count 137 L [place] % (Auto) 14.6 H Lymph # (Auto) 1.0 L ESR Carbon Dioxide 21 L Anion Gap BUN 32 H 30 H Creatinine 1.3 H Uric Acid 10.2 H 9.6 H Calcium 8.5 L Total Bilirubin 1.1 H Direct Bilirubin 0.4 H 0.5 H GGT 64 H 66 H Alkaline Phosphatase 219 H 225 H Myoglobin NT-Pro-B Natriuret Pep Globulin Urine Protein Urine Ketones Hyaline Casts Granular Casts Urine Mucus 03/06/19 03/06/19 03/06/19 10:00 08:42 08:42 RBC Hgb Hct MCV RDW Plt Count [place] % (Auto) Lymph # (Auto) ESR Carbon Dioxide 18 L Anion Gap 17.0 H BUN 26 H Creatinine Uric Acid Calcium Total Bilirubin 2.0 H Direct Bilirubin GGT Alkaline Phosphatase 263 H Myoglobin 113 H NT-Pro-B Natriuret Pep 16166.0 H Globulin 4.1 H Urine Protein 30 A Urine Ketones 5/tr A Hyaline Casts 46 H Granular Casts 1 H Urine Mucus Many A 03/06/19 03/06/19 08:42 08:36 RBC 3.99 L Hgb 13.3 L Hct 40.6 L MCV 101.8 H RDW 15.4 H Plt Count [place] % (Auto) Lymph # (Auto) 1.2 L ESR 16 H Carbon Dioxide Anion Gap BUN Creatinine Uric Acid Calcium Total Bilirubin Direct Bilirubin GGT Alkaline Phosphatase Myoglobin NT-Pro-B Natriuret Pep Globulin Urine Protein Urine Ketones Hyaline Casts Granular Casts Urine Mucus Meds: Medications Acetaminophen (Tylenol) 650 mg PO Q6HP PRN PRN Reason: PAIN/FEVER > 101 Last Admin: 03/08/19 03:06 Dose: 650 mg Documented by: Albuterol/Ipratropium (Duoneb) 3 ml NEB Q4HP PRN PRN Reason: Shortness Of Breath Allopurinol (Zyloprim) 100 mg PO MoWeFr@0900 [facility] Aspirin (Aspirin) 81 mg PO DAILY [facility] Last Admin: 03/07/19 09:49 Dose: 81 mg Documented by: Ceftriaxone Sodium (Rocephin) 1 gm IV Q24H [facility]; Protocol Last Admin: 03/07/19 09:49 Dose: 1 gm Documented by: Furosemide (Lasix) 40 mg IV BIDD [facility] Last Admin: 03/08/19 07:20 Dose: 40 mg Documented by: Hydrochlorothiazide (Oretic) 12.5 mg PO DAILY [facility] Last Admin: 03/07/19 09:49 Dose: 12.5 mg Documented by: Potassium Chloride 40 meq/ (Dextrose) 520 mls @ 130 mls/hr IV UD PRN PRN Reason: Potassium < 3 Magnesium Sulfate (Magnesium Sulfate) 2 gm in 50 mls @ 50 mls/hr IV UD PRN PRN Reason: Magnesium </= 1.6 Loperamide HCl (Imodium) 2 mg PO PRN PRN PRN Reason: Diarrhea Last Admin: 03/06/19 21:38 Dose: 2 mg Documented by: Metoprolol Succinate (Toprol Xl) 12.5 mg PO DAILY [facility] Ondansetron HCl (Zofran) 4 mg IV Q4HP PRN PRN Reason: Nausea And Vomiting Potassium Chloride (Kdur) 40 meq PO UD PRN PRN Reason: Potssium is 3-3.5 Potassium Chloride (Kdur) 40 meq PO UD PRN PRN Reason: Potassium < 3 Potassium Chloride (Kdur) 20 meq PO QAMCC [facility] Last Admin: 03/08/19 07:20 Dose: 20 meq Documented by: Promethazine HCl (Phenergan) 0 mg PO Q6HP PRN PRN Reason: Nausea And Vomiting Rivaroxaban (Xarelto) 20 mg PO QPMCC [facility] Last Admin: 03/07/19 17:12 Dose: 20 mg Documented by: Simvastatin (Zocor) 20 mg PO [facility] Last Admin: 03/07/19 21:52 Dose: 20 mg Documented by: Sodium Chloride (Saline Flush) 10 ml IV Q8 [facility] Last Admin: 03/08/19 06:05 Dose: 10 ml Documented by: Tramadol HCl (Ultram) 50 mg PO BIDP PRN PRN Reason: Pain Last Admin: 03/08/19 02:26 Dose: 50 mg Documented by: Medical - PN: A/P - Time Spent With Patient Total time spent is greater than 50% in coordination of care (as documented) at patient's floor/unit and/or counseling patient: - Narrative A/P Narrative: A: *Acute on chronic systolic/diastolic CHF w/pulmonary edema & Right side Heart Failure: -December echo EF 40-45 (EF 30% on echo in July 2018), RV systolic fxn moderately reduced, diastolic dysfxn -UOP~9L (net neg 6400) *Generalized weakness/deconditioning/inability to care for himself at home : *LLE ulcer/infection with venous stasis changes / lymphedema: -wound growing MSSA/GNB *Atrial fibrillation: rate controlled, anticoagulation on rivaroxaban -on BB and Xaralto *h/o CAD w/CABG: home aspirin/statin/ACEI/BB *Anemia, chronic: *CKD II-III: *Diarrhea: c. diff neg *History of gout: home colchicine/allopurinol *Osteoarthritis: prn tramadol *Goals of care: 6 hospitalizations in the past 6 months. Continue decline, poor prognosis, significant comorbidities. -Did discuss hospice with him and he was amenable to consultation Plan: -Hold diuresis today -monitor i/o & weights -Continue fluid restriction/low salt diet, CHF education -cont BB/xaralto, ASA/Statin, -ACEI held for low BP -Medications: s/b on Toprol instead of Coreg, Coreg was stopped last admission (still on home list) because he has had several hospital visitations for hypotension. And lisinopril was decreased at that time from 10mg to 2.5mg (still listed as 10mg on home list) -f/u with cardio outpt -PT/OT, nutritional support -leg wraps/elevate -Hospice eval -Rocephin, pending final wound cx -prn imodium -wound care -ppx: Rivaroxaban No Code
[2019-03-08] MEDS ORDERED: FUROSEMIDE 40 MG/4 ML VIAL IV SCH (08:00)
[2019-03-08] MEDS ORDERED: traMADol 50 MG TABLET PO PRN (09:30)
[2019-03-08] MEDS: METOPROLOL SUCCINATE 25 MG TAB.XL.24H PO SCH (09:42)
[2019-03-08] MEDS: ASPIRIN 81 MG TAB.CHEW PO SCH (10:13)
[2019-03-08] MEDS: HYDROCHLOROTHIAZIDE 12.5 MG CAPSULE PO SCH (10:13)
[2019-03-08] MEDS: cefTRIAXone 1 GM VIAL IV SCH (10:30)
[2019-03-08] MEDS: RIVAROXABAN 20 MG TABLET PO SCH (17:25)
[2019-03-08] MEDS: SIMVASTATIN 20 MG TABLET PO SCH (20:43)
[2019-03-08] MEDS: traMADol 50 MG TABLET PO PRN (20:44)
[2019-03-09] MEDS: 0.9 % SODIUM CHLORIDE 10 ML SYRINGE IV SCH (05:19)
[2019-03-09] MEDS: traMADol 50 MG TABLET PO PRN (06:00)
[2019-03-09 06:18] LABS: Basophils # (Auto) 0 K/mcL (0.0-0.3); Basophils % (Auto) 0.7 % (0.0-2.0); Eosinophils # (Auto) 0.5 K/mcL (0.0-0.7); Eosinophils % (Auto) 10.2 % (0.0-7.0); Granulocytes % (Auto) 53.9 % (38.0-78.0); Hematocrit 33.2 % (41.0-55.0); Hemoglobin 11.3 g/dL (13.5-16.5); Lymphocytes % (Auto) 22.7 % (15.5-49.0); Mean Cell Volume 99.4 fL (80.0-100.0); Mean Corpuscular HGB Conc 33.9 g/dL (31.0-36.0); Mean Platelet Volume 8.7 fL (7.4-10.4); Monocytes # (Auto) 0.6 K/mcL (0.1-0.9); Monocytes % (Auto) 12.5 % (1.0-12.0); Platelet Count 131 K/mcL (140-440); RBC 3.34 M/mcL (4.50-5.90); Red Cell Distribution Width 15.2 % (11.5-14.5); WBC 4.4 K/mcL (4.5-11.0)
[2019-03-09 06:42] LABS: ALT/SGPT 32 U/l (0-40); AST/SGOT 49 U/l (0-37); Albumin 3.5 gm/dL (3.2-5.2); Alkaline Phosphatase 263 U/L (39-117); Bilirubin,Direct 0.9 mg/dL (0.0-0.3); Bilirubin,Total 1.5 mg/dL (0.0-1.0); Blood Urea Nitrogen 34 mg/dl (8-23); Calcium 8.3 mg/dl (8.6-10.4); Carbon Dioxide 26 mmol/L (22-30); Chloride 98 mmol/L (96-108); Globulin 3.5 gm/dL (2.2-3.7); Glomerular Filtration Rate 59; Glucose 76 mg/dL (70-105); Lactate Dehydrogenase 238 U/L (94-250); Magnesium 1.7 mg/dL (1.6-2.5); Phosphorous 3.3 mg/dL (2.7-4.5); Potassium 4.1 mmol/L (3.3-5.1); Sodium 136 mmol/L (133-145); Triglycerides 45 mg/dl (<150); Uric Acid 10.6 mg/dL (2.5-8.0)
[2019-03-09] MEDS ORDERED: ALLOPURINOL 100 MG TABLET PO SCH (09:00)
[2019-03-09] MEDS: HYDROCHLOROTHIAZIDE 12.5 MG CAPSULE PO SCH (09:47)
[2019-03-09] MEDS: ASPIRIN 81 MG TAB.CHEW PO SCH (09:48)
[2019-03-09] MEDS: METOPROLOL SUCCINATE 25 MG TAB.XL.24H PO SCH (09:48)
[2019-03-09] MEDS: cefTRIAXone 1 GM VIAL IV SCH (09:49)
[2019-03-09] MEDS: POTASSIUM CHLORIDE 20 MEQ TABLET PO SCH (09:51)
--- NOTE | 2019-03-09 12:55 | Discharge Summary ---
Medical - DS: Prov Patient information: Note initiated : 03/09/19 at 12:26 pm Service Date, if different from initiated Date: [] Patient: Liz Bland 73 y/o M admitted on 03/06/19 for Weakness, SOB. Chief Complaint: [] Date of admission: 03/06/19 12:28 Discharge date: 03/09/19 Primary care physician: Laverne Pierre Consults: 03/06/19 Consult to Physician [CONS] Stat Comment: Consulting Provider: Raul Huff Reason For Exam: Physician to Consult Discharging clinician: Chris Mar Medical - DS: Meds - Discharge Medications Prescriptions: Cephalexin [Keflex] 500 mg PO QID #40 cap Lisinopril [Zestril] 2.5 mg PO DAILY #30 tab traMADol [Ultram] 50 - 100 mg PO Q6HP PRN #50 tab PRN Reason: Pain Active and Home Medications: Home Medications Acetaminophen [Tylenol 8 Hour] 650 mg PO Q4HP PRN 10/12/18 [History Confirmed 12/22/18 Last Taken Unknown] Allopurinol [Zyloprim] 100 mg PO .COMPLEX 10/12/18 [History Confirmed 10/12/18 Last Taken Unknown] Colchicine [Colcrys] 0.6 mg PO HSP PRN 10/12/18 [History Confirmed 03/07/19 Last Taken Unknown] Metolazone [Zaroxolyn] 2.5 mg PO .COMPLEX 10/12/18 [History Confirmed 10/12/18 Last Taken Unknown] Na Phos,M-B/Na Phos,Di-Ba [Fleets Adult] 1 dose NE DAILYP PRN 10/12/18 [History Confirmed 10/12/18 Last Taken Unknown] Nystatin 15 gm TP BID 10/12/18 [History Confirmed 10/12/18 Last Taken Unknown] Rivaroxaban [Xarelto] 20 mg PO DAILY 10/12/18 [History Confirmed 10/12/18 Last Taken Unknown] Aspirin [Elias Chewable Aspirin] 81 mg PO DAILY 12/18/18 [History Confirmed 03/06/19 Last Taken 03/05/19 09:00] Furosemide [Lasix] 40 mg PO BID 12/18/18 [History Confirmed 03/06/19 Last Taken 03/05/19 09:00] Potassium Chloride [Kdur] 20 meq PO QAC 12/18/18 [History Confirmed 03/07/19 Last Taken 03/05/19 09:00] Simvastatin [Zocor] 20 mg PO DAILY 12/18/18 [History Confirmed 03/06/19 Last Taken Unknown] Metoprolol Succinate [Toprol Xl] 12.5 mg PO DAILY #30 tab.xl.24h 12/22/18 [Rx Last Taken Unknown] traMADol [Ultram] 50 mg PO BID PRN #20 tab 12/23/18 [Rx Last Taken Unknown] Carvedilol [Coreg] 3.125 mg PO BIDCC 03/06/19 [History Confirmed 03/07/19 Last Taken Unknown] Lisinopril [Zestril] 10 mg PO HS MDD Hold if SBP <110 03/06/19 [History Confirmed 03/06/19 Last Taken Unknown] Medical - DS: Hosp Hospital course: Mr. Bland is a 73 year old M Presents to the ED with weakness and shortness of breath. Generalized weakness. Inability to care for himself at home. Patient has significant comorbidities many hospitalizations. He has been hospitalized 6 times since July relating to heart failure and conditions were relating to underlying heart disease. He called EMS because he was had increasing shortness of breath last night. He sleeps on his side because he sleeps flat on his back he has orthopnea and this is normal for him. However last night his shortness of breath was worsening. He also had pain in his legs. He says the swelling in his legs is similar to what it always is. He has occasional cough that is not new. He injured his leg getting to bed in the past and has an ulcer on his left lower extremity. He lives in a camper [place]. He also has diarrhea for the past couple days. Paramedics reported buckets of stool and urine surrounding him in the camper. In the ED he is evaluated including chest x-ray which showed pulmonary edema his oxygen saturation was down to 89 on room air. Found to have a large ulcer on his left adam. 03/07 Slept well. Feeling better today. Able to transfer more easily. He is able lift his legs off the bed now. Feels his swelling in his legs is also improved. 03/08 Feeling much better today even. Strength much improved. Has osteoarthritic pain in his hips and shoulders, otherwise no new complaints. Diuresing quite a bit. On room air. 03/09 Patient seen examined, no acute issues, doing much better, off oxygen, she is negative 9085ml since admission. She will be discharged to [facility] with some changes to her home regime. She will continue her home regimen of diuretics, Lasix 40 mg twice a day, metolazone 2.5 mg every other day She will stop taking Coreg, she will take 12.5 mg of metoprolol XL once a day. She is been having trouble with low blood pressures and therefore this changes were made in the previous visit however for some reason the patient's medication list did not reflect this changes The dose of lisinopril will be cut down from 10 mg 2.5 mg once a day She will take Keflex 500 mg every 6 hours for total of 10 days In Summary Patient admitted to the hospital with a diagnosis of combined systolic and diastolic congestive heart failure. Patient treated with diuretics and changes in blood pressure medications responded well to treatment. Has had multiple admissions to the hospital for the same reason it seems. At the time of discharge she is off oxygen, -9000 mL since admission, She had some [facility] wounds which were growing gnb and mssa, will treat with oral keflexa and outpatient wound care follow up no other changes made to her [facility] home medication list. Discharge diagnosis: CHF exacerbation - Time Spent with Patient Total time spent providing and/or coordinating discharge services: Greater than 30 minutes Medical - DS: Exam - Constitutional Vitals: Vital Signs Temp Pulse Pulse Resp BP Pulse Ox 03/09/19 11:35 97.5 F 63 18 116/78 97 03/09/19 07:36 120/88 03/09/19 04:15 97.9 F 20 117/74 94 03/09/19 00:10 98.6 F 24 H 109/71 94 03/08/19 21:20 98.4 F 03/08/19 20:02 100.3 F H 22 100/73 93 03/08/19 20:00 75 93 03/08/19 15:33 98.2 F 20 95/71 97 03/08/19 15:31 95/71 Intake and Output 03/08/19 03/09/19 03/09/19 21:59 05:59 13:59 Intake Total 650 200 Output Total 1300 1400 Balance -650 -1200 Intake: Oral 650 200 Output: Urine Catheter Amount 1300 1400 Other: Meal Dinner Breakfast Percent of Meal Consumed 100% 100% Feeding Ability Independent Assist with Tray Set Up Urine Appearance Hematuria Uretheral (Roque) Clear Urine Color Blood Tinged Uretheral (Roque) Bright Yellow Urine Odor Normal Stool Size Small Stool Color Brown Stool Consistency Soft # Bowel Movements 1 Weight 249 lb 4.8 oz Additional comments: Constitutional; Afebrile, cooperative, alert, not in distress. Respiratory system: Air Entry equal on both sides, No crackles or wheezing, no rhonchi. CVS- Rate rhythm regular, S1,S2 heard, no gallop, no rub. Abdomen- Soft nontender abdomen, no organomegaly, no tenderness, no guarding or rigidity, [employer]- AOOx3, moving all extremities, no gross focal deficit noted. Medical - DS: Data Labs on day of discharge: Labs from last 24 hours 03/09/19 03/09/19 04:05 04:05 WBC 4.4 L RBC 3.34 L Hgb 11.3 L Hct 33.2 L MCV 99.4 MCH 33.7 MCHC 33.9 RDW 15.2 H Plt Count 131 L MPV 8.7 Gran % 53.9 Lymph % (Auto) 22.7 Blair % (Auto) 12.5 H Eos % (Auto) 10.2 H Baso % (Auto) 0.7 Gran # 2.4 Lymph # (Auto) 1.0 L Blair # (Auto) 0.6 Eos # (Auto) 0.5 Baso # (Auto) 0 Sodium 136 Potassium 4.1 Chloride 98 Carbon Dioxide 26 Anion Gap 12.0 BUN 34 H Creatinine 1.2 GFR Calculation 59 Glucose 76 Uric Acid 10.6 H Calcium 8.3 L Phosphorus 3.3 Magnesium 1.7 Total Bilirubin 1.5 H Direct Bilirubin 0.9 H GGT 130 H AST 49 H ALT 32 Alkaline Phosphatase 263 H Lactate Dehydrogenase 238 Total Protein 7.0 Albumin 3.5 Globulin 3.5 Albumin/Globulin Ratio 1.0 Triglycerides 45 Preliminary micro results at discharge 03/06/19 09:20 Wound Culture - Preliminary Leg - Lower Left Staphylococcus aureus Gram negative bacillus Medical - DS: A/P - Patient/Caregiver Discharge Instructions Activity: as per physical therapy Diet: Cardiac Additional Instructions: Please cut back on the dose of lisinopril from 10 mg of 2.5 mg once a day Stop taking Coreg Continue taking your diuretics, Lasix 40 mg twice a day and metolazone 2.5 mg every other day Take Keflex 500 mg every 6 hours for total of 10 days I would recommend PCP/fpc provider to check chemistry in 1 week to make sure her renal function and elect lites remain stable Go to the emergency room for worsening symptoms, chest pain shortness of breath or any other acute concern Outpatient follow-up with cardiology in 2 to 4 weeks Outpatient follow-up with wound care in 1 week - Follow up Plan Follow up with: Paolo Neal MD [Physician] - (Follow up as new patient at wound healing for left leg venous ulcer) Laverne Pierre MD [Primary Care Provider] - Disposition: Xfer SNF Prognosis: Fair Rehab Potential: Fair I certify that the patient requires SNF services: Yes Overall status at discharge: patient is progressing back to baseline
== END 2019-03-09 15:14 | DRG 291 ==
LOC: ED 08:37 → ICU 12:25
PROVIDERS: ADMIT Internal Medicine; ATTEND Internal Medicine